=== PATIENT | female | born 1970 | race Caucasian/White ===

== ENCOUNTER 2016-10-10 21:23 | Emergency (ER) | payer OTHER ==
[2016-10-10 21:31] VITALS: RESP 18
[2016-10-10] MEDS ORDERED: methylPREDNISolone SOD SUCCI 125 MG/2 ML VIAL IV STA (21:42)
[2016-10-10] MEDS ORDERED: FAMOTIDINE 20 MG/2 ML VIAL IV STA (21:42)
[2016-10-10] MEDS ORDERED: SODIUM CHLORIDE 0.9% 1,000 ML IV STA (21:42)
[2016-10-10] MEDS ORDERED: diphenhydrAMINE 50 MG/ML 1 ML VIAL IVP STA (21:42)
[2016-10-10] MEDS ORDERED: KETOROLAC 30 MG/ML 1 ML VIAL IVP STA (21:43)
--- NOTE | 2016-10-10 21:48 | ED ---
General Adult HPI - General Chief complaint: Allergic Reaction Stated complaint: allergic reaction/multiple bee stings Time Seen by Provider: 10/10/16 21:38 Source: patient, RN notes reviewed Mode of arrival: ambulatory Limitations: no limitations - History of Present Illness Initial comments: 46-year-old female presents emergency Department chief complaint of ALLERGIC reaction. Patient states that she was stung by multiple bees about 20 minutes ago. Patient states that she has had an ALLERGY to bees in the past that she was concerned. Patient states that the bites or just swollen and tender. Patient states in the way here she felt some shortness of breath but she is feeling much better now. Patient was concerned due to the number of insect bite so she thought that she should be seen. He states that they are throbbing in pain.Patient denies any recent fever, chills, shortness of breath, chest pain , back pain, abdominal pain, nausea vomiting, numbness or tingling, dysuria or hematuria, constipation or diarrhea, headaches or visual changes, or any other current symptoms. - Related Data Home Medications Medication Instructions Recorded Confirmed ALPRAZolam [Xanax] 0.25 mg PO DAILY PRN 09/17/13 10/02/14 Citalopram Hydrobromide [CeleXA] 40 mg PO DAILY 09/17/13 10/02/14 Levothyroxine Sodium [Synthroid] 75 mcg PO DAILY 09/17/13 10/02/14 Phentermine HCl 37.5 mg PO DAILY 10/02/14 10/02/14 Previous Rx's Medication Instructions Recorded Hydrocodone/Acetaminophen [[place] 1 each PO Q4HR PRN #20 tab 09/17/13 5-325] EPINEPHrine (Auto Inject) [Epipen] 0.3 mg IM ONCE PRN #1 syringe 10/10/16 predniSONE 50 mg PO DAILY #5 tab 10/10/16 Allergies Allergy/AdvReac Type Severity Reaction Status Date / Time prochlorperazine edisylate Allergy Rash/Hives Verified 10/10/16 21:31 [From Compazine] prochlorperazine maleate Allergy Rash/Hives Verified 10/10/16 21:31 [From Compazine] promethazine HCl AdvReac Confusion Verified 10/10/16 21:31 [From Phenergan] Review of Systems ROS Statement: Those systems with pertinent positive or pertinent negative responses have been documented in the HPI. ROS Other: All systems not noted in ROS Statement are negative. Past Medical History Past Medical History: Pneumonia, Thyroid Disorder Additional Past Medical History / Comment(s): "small brain bleed" History of Any Multi-Drug Resistant Organisms: None Reported Past Surgical History: Hysterectomy, Orthopedic Surgery Additional Past Surgical History / Comment(s): breast reduction Past Psychological History: Anxiety, Depression Smoking Status: Never smoker Past Alcohol Use History: Occasional Past Drug Use History: None Reported General Exam Limitations: no limitations General appearance: alert, in no apparent distress Eye exam: Present: normal appearance, PERRL, EOMI. Absent: scleral icterus, conjunctival injection, periorbital swelling ENT exam: Present: normal exam, mucous membranes moist Neck exam: Present: normal inspection. Absent: tenderness, meningismus, lymphadenopathy Respiratory exam: Present: normal lung sounds bilaterally. Absent: respiratory distress, wheezes, rales, rhonchi, stridor Cardiovascular Exam: Present: regular rate, normal rhythm, normal heart sounds. Absent: systolic murmur, diastolic murmur, rubs, gallop, clicks Neurological exam: Present: alert, oriented X3 Psychiatric exam: Present: normal affect, normal mood Skin exam: Present: warm, dry, intact, other Course Vital Signs 10/10/16 21:28 Temperature 97.8 F Pulse Rate 87 Respiratory 18 Rate Blood Pressure 151/90 O2 Sat by Pulse 98 Oximetry Medical Decision Making - Medical Decision Making 46-year-old male presents for ALLERGIC reaction. This time we do much patient one hour she developed no anaphylaxis like symptoms. We did start her on steroids we discussed continuing Benadryl at home. We discussed return parameters and all her questions. She stated that she understood and she is here with this plan. This time she will be discharged home. Disposition Clinical Impression: Allergic reaction to insect sting Disposition: HOME SELF-CARE Condition: Stable Instructions: Anaphylaxis (ED) Additional Instructions: Please use medication as discussed. Please follow up with family doctor if symptoms have not improved over the next two days. Please return to the emergency room if your symptoms increase or worsen or for any other concerns. Prescriptions: EPINEPHrine (Auto Inject) [Epipen] 0.3 mg IM ONCE PRN #1 syringe PRN Reason: Anaphylaxis predniSONE 50 mg PO DAILY #5 tab Referrals: Dominga Deal MD [Primary Care Provider] - 1-2 days Time of Disposition: 22:32
[2016-10-10 23:27] VITALS: BP 108/52; PULSE 68; TEMP 97.6
== END 2016-10-10 23:27 | disposition home or self-care (01) ==
LOC: EC 21:23
DX: T63.441A Toxic effect of venom of bees, accidental (unintentional), initial encounter (principal); R06.02 Shortness of breath; E07.9 Disorder of thyroid, unspecified; F32.9 Major depressive disorder, single episode, unspecified; F41.9 Anxiety disorder, unspecified; Z79.899 Other long term (current) drug therapy; Z88.8 Allergy status to other drugs, medicaments and biological substances
CPT/HCPCS: 99283; 96374; 96375 ×3; 96361; J1200; J2930; J1885

== ENCOUNTER 2016-11-05 07:46 | Emergency (ER) | payer OTHER ==
[2016-11-05] MEDS ORDERED: SODIUM CHLORIDE 0.9% 1,000 ML IV STA (08:07)
[2016-11-05] MEDS ORDERED: RX INFO: IV CONTRAST WAS GIVEN 1 EACH MISC MISCELLANE PRN (08:20)
[2016-11-05] MEDS ORDERED: ONDANSETRON 4 MG/2 ML VIAL IVP STA (08:20)
[2016-11-05] MEDS ORDERED: MORPHINE SULFATE 2 MG/ML SYRINGE IVP ONE (08:20)
[2016-11-05 08:51] LABS: Basophils # (A) 0.1 k/uL (0-0.2); Basophils % (A) 1 %; CH 31.7; CHCM 35.4; Eosinophils # (A) 0.2 k/uL (0-0.7); Eosinophils % (A) 2 %; HCT 43.3 % (34.0-46.0); HDW 2.49; HGB 14.8 gm/dL (11.4-16.0); Luc # (Auto) 0.21; Luc % (Auto) 2; Lymphocytes # (A) 2.1 k/uL (1.0-4.8); Lymphocytes % (A) 22 %; MCH 30.6 pg (25.0-35.0); MCHC 34.1 g/dL (31.0-37.0); MCV 89.9 fL (80.0-100.0); Mean Platelet Volume 7.6; Monocytes # (A) 0.5 k/uL (0-1.0); Monocytes % (A) 5 %; Neutrophils # (A) 6.7 k/uL (1.3-7.7); Neutrophils % (A) 69 %; RBC 4.82 m/uL (3.80-5.40); RDW 13.7 % (11.5-15.5); WBC 9.7 k/uL (3.8-10.6); WBC (Perox) 9.17
[2016-11-05 08:57] LABS: Appearance,Urine Cloudy (Clear); Bacteria,Urine Few /hpf; Bilirubin,Urine Negative (Negative); Glucose,Urine (UA) 1+ (Negative); Ketones,Urine Negative (Negative); Leukocyte Esterase,Urine Large (Negative); Mucus,Urine Many /hpf; Nitrite,Urine Negative (Negative); PH, Urine 5.5 (5.0-8.0); Particle Count 33157; Protein,Urine Trace (Negative); Specific Gravity,Urine 1.018 (1.001-1.035); Squamous Epithelial Cell,Urine 24 /hpf (0-4); UA Billing (MACRO vs. MICRO) MICRO; Urobilinogen,Urine <2.0 mg/dL (<2.0); WBC,Urine 7 /hpf (0-5)
--- NOTE | 2016-11-05 08:57 | ED ---
Abdominal Pain HPI - General Chief Complaint: Abdominal Pain Stated Complaint: abd pain Time Seen by Provider: 11/05/16 08:06 Source: patient, RN notes reviewed Mode of arrival: ambulatory Limitations: no limitations - History of Present Illness Initial Comments: This a 46-year-old female presents emergency Department chief complaint of abdominal pain. Patient states that she has had abdominal pain started 1 week ago but worsening symptoms over the last 3 days. She's developed nausea, vomiting and diarrhea. She denies any pressure chills. She states that she's had a prior partial hysterectomy and cholecystectomy. Patient states that she' s never had a colonoscopy no history of colitis or diverticulitis. Patient states that she still feels nauseated. She denies any chest pain, shortness breath, headache. Patient does note some urinary frequency with no dysuria. Patient has chronic back pain. - Related Data Home Medications Medication Instructions Recorded Confirmed ALPRAZolam [Xanax] 0.25 mg PO DAILY PRN 09/17/13 11/05/16 Levothyroxine Sodium [Synthroid] 75 mcg PO DAILY 09/17/13 11/05/16 Citalopram Hydrobromide [CeleXA] 20 mg PO HS 11/05/16 11/05/16 Hydrocodone/Acetaminophen [[place] 1 tab PO Q6HR PRN 11/05/16 11/05/16 7.5-325] metFORMIN HCL ER [Glucophage Xr] 500 mg PO HS 11/05/16 11/05/16 Previous Rx's Medication Instructions Recorded EPINEPHrine (Auto Inject) [Epipen] 0.3 mg IM ONCE PRN #1 syringe 10/10/16 Dicyclomine [Bentyl] 20 mg PO TID #30 tablet 11/05/16 Ondansetron Odt [Zofran Odt] 4 mg PO Q8HR PRN #10 tab 11/05/16 Allergies Allergy/AdvReac Type Severity Reaction Status Date / Time prochlorperazine edisylate Allergy Rash/Hives Verified 11/05/16 08:56 [From Compazine] prochlorperazine maleate Allergy Rash/Hives Verified 11/05/16 08:56 [From Compazine] promethazine HCl AdvReac Confusion Verified 11/05/16 08:56 [From Phenergan] Review of Systems ROS Statement: Those systems with pertinent positive or pertinent negative responses have been documented in the HPI. ROS Other: All systems not noted in ROS Statement are negative. Past Medical History Past Medical History: Pneumonia, Thyroid Disorder Additional Past Medical History / Comment(s): "small brain bleed" History of Any Multi-Drug Resistant Organisms: None Reported Past Surgical History: Hysterectomy, Orthopedic Surgery Additional Past Surgical History / Comment(s): breast reduction Past Psychological History: Anxiety, Depression Smoking Status: Never smoker Past Alcohol Use History: Occasional Past Drug Use History: None Reported General Exam Limitations: no limitations General appearance: alert, in no apparent distress Respiratory exam: Present: normal lung sounds bilaterally. Absent: respiratory distress, wheezes, rales, rhonchi, stridor Cardiovascular Exam: Present: regular rate, normal rhythm, normal heart sounds. Absent: systolic murmur, diastolic murmur, rubs, gallop, clicks GI/Abdominal exam: Present: soft, tenderness (Mild diffuse odontitis with moderate left lower quadrant tenderness), normal bowel sounds. Absent: distended, guarding, rebound, rigid Back exam: Absent: CVA tenderness (R), CVA tenderness (L) Neurological exam: Present: alert, oriented X3, CN II-XII intact Skin exam: Present: warm, dry, intact, normal color. Absent: rash Course Vital Signs 11/05/16 11/05/16 07:47 09:36 Temperature 98.7 F Pulse Rate 83 70 Respiratory 18 19 Rate Blood Pressure 110/70 95/54 O2 Sat by Pulse 97 96 Oximetry Medical Decision Making - Medical Decision Making 46-year-old female presents emergency department for abdominal pain. Patient's labwork showed acute abnormality. Patient's pain has been over the last few days worsen with nausea vomiting diarrhea. This most likely is related to enteritis. Patient be discharged Zofran and Bentyl return parameters were discussed. - Lab Data Result diagrams: 11/05/16 08:37 11/05/16 08:37 Lab Results 11/05/16 11/05/16 11/05/16 Range/Units 08:25 08:37 08:37 WBC 9.7 (3.8-10.6) k/uL RBC 4.82 (3.80-5.40) m/uL Hgb 14.8 (11.4-16.0) gm/dL Hct 43.3 (34.0-46.0) % MCV 89.9 (80.0-100.0) fL MCH 30.6 (25.0-35.0) pg MCHC 34.1 (31.0-37.0) g/dL RDW 13.7 (11.5-15.5) % Plt Count 282 (150-450) k/uL Neutrophils % 69 % Lymphocytes % 22 % Monocytes % 5 % Eosinophils % 2 % Basophils % 1 % Neutrophils # 6.7 (1.3-7.7) k/uL Lymphocytes # 2.1 (1.0-4.8) k/uL Monocytes # 0.5 (0-1.0) k/uL Eosinophils # 0.2 (0-0.7) k/uL Basophils # 0.1 (0-0.2) k/uL Sodium 139 (137-145) mmol/L Potassium 4.3 (3.5-5.1) mmol/L Chloride 103 (98-107) mmol/L Carbon Dioxide 26 (22-30) mmol/L Anion Gap 10 mmol/L BUN 6 L (7-17) mg/dL Creatinine 0.60 (0.52-1.04) mg/dL Est GFR (MDRD) Af Amer >60 (>60 ml/min/1.73 sqM) Est GFR (MDRD) Non-Af >60 (>60 ml/min/1.73 sqM) Glucose 178 H (74-99) mg/dL Calcium 9.1 (8.4-10.2) mg/dL Total Bilirubin 0.8 (0.2-1.3) mg/dL AST 40 H (14-36) U/L ALT 64 H (9-52) U/L Alkaline Phosphatase 78 (38-126) U/L Total Protein 7.3 (6.3-8.2) g/dL Albumin 4.0 (3.5-5.0) g/dL Amylase 36 (30-110) U/L Lipase 58 (23-300) U/L Urine Color Yellow Urine Appearance Cloudy H (Clear) Urine pH 5.5 (5.0-8.0) Ur Specific [place] 1.018 (1.001-1.035) Urine Protein Trace H (Negative) Urine Glucose (UA) 1+ H (Negative) Urine Ketones Negative (Negative) Urine Blood Negative (Negative) Urine Nitrite Negative (Negative) Urine Bilirubin Negative (Negative) Urine Urobilinogen <2.0 (<2.0) mg/dL Ur Leukocyte Esterase Large H (Negative) Urine WBC 7 H (0-5) /hpf Ur Squamous Epith Cells 24 H (0-4) /hpf Urine Bacteria Few H (None) /hpf Urine Mucus Many H (None) /hpf Disposition Clinical Impression: Abdominal pain, Gastroenteritis Disposition: HOME SELF-CARE Condition: Stable Instructions: Abdominal Pain (ED) Additional Instructions: Please return to the Emergency Department if symptoms worsen or any other concerns. Prescriptions: Dicyclomine [Bentyl] 20 mg PO TID #30 tablet Ondansetron Odt [Zofran Odt] 4 mg PO Q8HR PRN #10 tab PRN Reason: Nausea Referrals: Dominga Deal MD [Primary Care Provider] - 1-2 days Time of Disposition: 10:46
[2016-11-05 09:00] LABS: ALT 64 U/L (9-52); AST 40 U/L (14-36); Alkaline Phosphatase 78 U/L (38-126); Amylase 36 U/L (30-110); Anion Gap 10 mmol/L; Blood Urea Nitrogen 6 mg/dL (7-17); Calcium 9.1 mg/dL (8.4-10.2); Carbon Dioxide 26 mmol/L (22-30); Chloride 103 mmol/L (98-107); Glucose 178 mg/dL (74-99); Non-African American GFR(MDRD) >60 (>60 ml/min/1.73 sqM); Potassium 4.3 mmol/L (3.5-5.1); Sodium 139 mmol/L (137-145); Total Bilirubin 0.8 mg/dL (0.2-1.3); Total Protein 7.3 g/dL (6.3-8.2)
--- NOTE | 2016-11-05 10:39 | CT ---
EXAMINATION TYPE: CT abdomen pelvis w con DATE OF EXAM: 11/05/2016 COMPARISON: 01/07/2011 INDICATION: Left sided abdominal pain with nausea and vomiting DLP: 3075.6 mGycm, Automated exposure control for dose reduction was used. CONTRAST: 100 mL of Omnipaque 300. Study performed without Oral Contrast TECHNIQUE: Axial images were obtained from above the diaphragm to the pubic rami in the axial plane a t 5 mm thick sections. Reconstructed images are reviewed on the computer in the coronal plane. FINDINGS: Limited CT sections are obtained the lung bases. Some minimal infiltrate is within the lingula near the lung base. Consider some minimal atelectasis or pneumonitis.. CT ABDOMEN: Liver: There is moderate fatty infiltration to the liver. No discrete masses or cysts are evident. Spleen: Normal Pancreas: Normal Adrenal glands: The adrenal glands are normal. Gallbladder: Surgically absent Kidneys: No masses are evident. No hydronephrosis is present. There is a 0.8 cm cyst in the anterio r right kidney. Cortical renal cyst measuring 1.0 cm in the anterior lateral inferior pole right kidn ey. Couple of additional punctate cortical renal cysts are present on delayed images. Aorta: Normal Inferior vena cava: Normal. CT PELVIS: Loops of bowel within the abdomen and pelvis are normal. Study is without oral contrast. Appendix: Normal as visualized. Urinary bladder: Decompressed with limited evaluation. Genitourinary structures: Uterus is normal. Adnexal regions are clear. Osseous structures: No suspicious lytic or sclerotic lesions. Facet degenerative changes are present. No acute posttraumatic changes are evident. No organ laceration, osseous fractures, or fluid within t he abdomen or pelvis is evident. IMPRESSIONS: 1. No acute posttraumatic changes. 2. Tiny cortical renal cysts right kidney. 3. Moderate fatty infiltration of the liver
[2016-11-05 10:58] VITALS: BP 97/55; PULSE 68; RESP 18; TEMP 97.7
== END 2016-11-05 11:03 | disposition home or self-care (01) ==
LOC: EC 07:46
DX: K52.9 Noninfective gastroenteritis and colitis, unspecified (principal); E07.9 Disorder of thyroid, unspecified; F32.9 Major depressive disorder, single episode, unspecified; F41.9 Anxiety disorder, unspecified; Z79.84 Long term (current) use of oral hypoglycemic drugs; Z79.899 Other long term (current) drug therapy; Z88.8 Allergy status to other drugs, medicaments and biological substances; Z90.49 Acquired absence of other specified parts of digestive tract; Z90.710 Acquired absence of both cervix and uterus
CPT/HCPCS: 36415; 80053; 82150; 83690; 85025; 81001; 74177; 99284; 96374; 96375; 96361 ×2; J2405; J2270; Q9967

== ENCOUNTER → 2016-11-29 | Outpatient (CLI) | payer OTHER ==
--- NOTE | 2016-12-02 11:58 | MM ---
Reason for exam: screening (asymptomatic). Last mammogram was performed 6 years and 9 months ago. History: Patient has history of high-risk lesion on a previous biopsy at age 25. Family history of breast cancer in maternal grandmother. Reductions of both breasts, 2006. Physical Findings: A clinical breast exam by your physician is recommended on an annual basis and results should be correlated with mammographic findings. MG Screening Mammo w CAD Bilateral CC and MLO view(s) were taken. XCCL view(s) were taken of the left breast. Prior study comparison: March 15, 2010, bilateral diagnostic digital mammog. There are scattered fibroglandular densities. There is no discrete abnormality. No significant changes when compared with prior studies. ASSESSMENT: Negative, BI-RAD 1 RECOMMENDATION: Routine screening mammogram of both breasts in 1 year.
== END | disposition home or self-care (01) ==
LOC: RADMAMWWP 08:15
PROVIDERS: ATTEND Family Medicine
DX: Z12.31 Encounter for screening mammogram for malignant neoplasm of breast (principal)

== ENCOUNTER 2017-01-11 09:36 | Emergency (ER) | payer BC, OTHER ==
[2017-01-11 09:41] VITALS: RESP 18
[2017-01-11] MEDS ORDERED: SODIUM CHLORIDE 0.9% 1,000 ML IV STA (09:55)
[2017-01-11] MEDS ORDERED: KETOROLAC 30 MG/ML 1 ML VIAL IVP STA (09:55)
[2017-01-11] MEDS ORDERED: ASPIRIN 81 MG PO STA (09:55)
--- NOTE | 2017-01-11 09:58 | ED ---
Chest Pain HPI - General Chief Complaint: Chest Pain Stated Complaint: chest heavyness, weakness Time Seen by Provider: 01/11/17 09:48 Source: patient, RN notes reviewed Mode of arrival: wheelchair Limitations: no limitations - History of Present Illness Initial Comments: This is a 46-year-old female with a benign past medical history states she's had intermittent episodes of anterior chest pain with some pain going to her low back over last week she states it became fairly constant last evening feels a heaviness also some was sitting on her chest. She states is 8/10 severity. She has a slight cough with some phlegm which she does not know color she's had no fevers chills or sweats. She states when the pain started actually she was placed on Z-Arnol though she did not believe she had any cough or respiratory problem at the time. She is a nonsmoker she does not recall lifting or bending or twisting may be injured her torso. MD Complaint: chest pain - Related Data Home Medications Medication Instructions Recorded Confirmed ALPRAZolam [Xanax] 0.25 mg PO DAILY PRN 09/17/13 01/11/17 Levothyroxine Sodium [Synthroid] 75 mcg PO DAILY 09/17/13 01/11/17 Citalopram Hydrobromide [CeleXA] 20 mg PO HS 11/05/16 01/11/17 Hydrocodone/Acetaminophen [[place] 1 tab PO Q6HR PRN 11/05/16 01/11/17 7.5-325] Aspirin [Adult Low Dose Aspirin EC] 81 mg PO DAILY PRN 01/11/17 01/11/17 Cyclobenzaprine [Flexeril] 5 mg PO DAILY PRN 01/11/17 01/11/17 Glimepiride [Amaryl] 1 mg PO DAILY 01/11/17 01/11/17 Pseudoephedrine 12Hr [Sudafed 12Hr] 120 mg PO Q12H PRN 01/11/17 01/11/17 Previous Rx's Medication Instructions Recorded EPINEPHrine (Auto Inject) [Epipen] 0.3 mg IM ONCE PRN #1 syringe 10/10/16 Ibuprofen 800 mg PO Q6HR PRN #20 tablet 01/11/17 Allergies Allergy/AdvReac Type Severity Reaction Status Date / Time prochlorperazine edisylate Allergy Rash/Hives Verified 01/11/17 10:50 [From Compazine] prochlorperazine maleate Allergy Rash/Hives Verified 01/11/17 10:50 [From Compazine] promethazine HCl AdvReac Confusion Verified 01/11/17 10:50 [From Phenergan] Review of Systems ROS Statement: Those systems with pertinent positive or pertinent negative responses have been documented in the HPI. ROS Other: All systems not noted in ROS Statement are negative. EKG Findings - EKG Results: EKG: interpreted by BRISEYDA, sinus rhythm (Sinus rhythm rate is 70. Interval 154 QRS duration 92 QT/QTC 394/425 evidence of a left anterior fascicular block this is compared with EKG dated 10/02/49 which shows no change in morphology.) Past Medical History Past Medical History: Pneumonia, Thyroid Disorder Additional Past Medical History / Comment(s): "small brain bleed" History of Any Multi-Drug Resistant Organisms: None Reported Past Surgical History: Hysterectomy, Orthopedic Surgery Additional Past Surgical History / Comment(s): breast reduction Past Psychological History: Anxiety, Depression Smoking Status: Never smoker Past Alcohol Use History: Occasional Past Drug Use History: None Reported General Exam - General Exam Comments Initial Comments: This is a well-developed well-nourished awake alert oriented 3 female Limitations: no limitations General appearance: alert, anxious Head exam: Present: atraumatic, normocephalic, normal inspection Eye exam: Present: normal appearance, PERRL, EOMI. Absent: scleral icterus, conjunctival injection, periorbital swelling ENT exam: Present: normal exam, mucous membranes moist Neck exam: Present: normal inspection. Absent: tenderness, meningismus, lymphadenopathy Respiratory exam: Present: chest wall tenderness, decreased breath sounds ( Reproducible tenderness palpation of the anterior chest with costochondral costal sternal margins). Absent: respiratory distress, wheezes, rales, rhonchi , stridor Cardiovascular Exam: Present: regular rate, normal rhythm, normal heart sounds. Absent: systolic murmur, diastolic murmur, rubs, gallop, clicks GI/Abdominal exam: Present: soft, normal bowel sounds. Absent: distended, tenderness, guarding, rebound, rigid, bruit, pulsatile mass, hernia Extremities exam: Present: normal inspection, full ROM, normal capillary refill. Absent: tenderness, pedal edema, joint swelling, calf tenderness Back exam: Present: normal inspection, full ROM, tenderness (Tenderness palpation along the left paraspinous muscles in the midthoracic region no step- off or crepitation no spinal process tenderness). Absent: CVA tenderness (R), CVA tenderness (L), vertebral tenderness, rash noted Neurological exam: Present: alert, oriented X3, CN II-XII intact Psychiatric exam: Present: normal affect, normal mood Skin exam: Present: warm, dry, intact, normal color. Absent: rash Course Vital Signs 01/11/17 01/11/17 01/11/17 09:39 09:58 10:41 Temperature 98.6 F Pulse Rate 79 89 Pulse Rate [ 85 Drafter (Cad) Electrical ] Respiratory 18 18 Rate Blood Pressure 151/70 116/68 O2 Sat by Pulse 96 98 Oximetry Chest Pain MDM - MDM I did review the imaging and reports no acute findings. Patient is feeling much improved at this time we a long discussion regarding the findings the presentation is consistent with musculoskeletal chest wall pain. Patient be placed on anti-inflammatories. Disposition Clinical Impression: Costalchondritis, Chest wall syndrome Disposition: HOME SELF-CARE Condition: Good Instructions: Costochondritis (ED) Prescriptions: Ibuprofen 800 mg PO Q6HR PRN #20 tablet PRN Reason: Pain Referrals: Dominga Deal MD [Primary Care Provider] - 1-2 days
[2017-01-11 10:05] LABS: Basophils % (A) 0 %; CHCM 33.1; Eosinophils # (A) 0.2 k/uL (0-0.7); Eosinophils % (A) 3 %; HCT 43.3 % (34.0-46.0); HDW 2.35; HGB 14.1 gm/dL (11.4-16.0); Luc # (Auto) 0.12; Luc % (Auto) 2; Lymphocytes # (A) 1.7 k/uL (1.0-4.8); Lymphocytes % (A) 28 %; MCH 29.5 pg (25.0-35.0); MCHC 32.4 g/dL (31.0-37.0); Mean Platelet Volume 7.5; Monocytes # (A) 0.3 k/uL (0-1.0); Monocytes % (A) 4 %; Neutrophils # (A) 3.7 k/uL (1.3-7.7); Neutrophils % (A) 63 %; RBC 4.76 m/uL (3.80-5.40); RDW 13.5 % (11.5-15.5); WBC 5.9 k/uL (3.8-10.6); WBC (Perox) 5.95
[2017-01-11 10:16] LABS: ALT 60 U/L (9-52); AST 41 U/L (14-36); Alkaline Phosphatase 85 U/L (38-126); Amylase 36 U/L (30-110); Anion Gap 6 mmol/L; Blood Urea Nitrogen 9 mg/dL (7-17); Calcium 8.8 mg/dL (8.4-10.2); Carbon Dioxide 26 mmol/L (22-30); Chloride 106 mmol/L (98-107); Glucose 182 mg/dL (74-99); Magnesium 1.8 mg/dL (1.6-2.3); Non-African American GFR(MDRD) >60 (>60 ml/min/1.73 sqM); Potassium 4.2 mmol/L (3.5-5.1); Sodium 138 mmol/L (137-145); Total Bilirubin 0.6 mg/dL (0.2-1.3); Total Protein 6.9 g/dL (6.3-8.2)
[2017-01-11 10:17] LABS: Partial Thromboplastin Time 26.6 sec (22.0-30.0); Prothrombin Time 10.4 sec (9.0-12.0)
[2017-01-11 10:38] LABS: Creatine Kinase 51 U/L (30-135)
--- NOTE | 2017-01-11 10:38 | XR ---
EXAMINATION TYPE: XR chest 2V DATE OF EXAM: 01/11/2017 HISTORY: Chest Pain. REFERENCE: Previous study dated 05/08/2014. FINDINGS: The lungs are clear. Pleural space are clear. The heart is not enlarged. IMPRESSION: NO ACUTE INTRATHORACIC ABNORMALITY.
[2017-01-11 10:51] LABS: Creatine Kinase MB 1.1 ng/mL (0.0-2.4); Troponin I <0.012 ng/mL (0.000-0.034)
[2017-01-11 12:03] VITALS: BP 116/75; PULSE 76; TEMP 97
== END 2017-01-11 11:45 | disposition home or self-care (01) ==
LOC: EC 09:36
DX: M94.0 Chondrocostal junction syndrome [Tietze] (principal); E07.9 Disorder of thyroid, unspecified; F41.9 Anxiety disorder, unspecified; F32.9 Major depressive disorder, single episode, unspecified; Z88.8 Allergy status to other drugs, medicaments and biological substances; Z79.84 Long term (current) use of oral hypoglycemic drugs; Z79.899 Other long term (current) drug therapy
CPT/HCPCS: 99285; 96374; 96361 ×2; 36415; 93005; 85379; 83880; 80053; 82150; 82550; 82553; 83690; 83735; 84484; 85025; 85610; 85730; 71020; J1885

== ENCOUNTER → 2017-04-22 | Outpatient (CLI) | payer BC ==
--- NOTE | 2017-04-22 16:17 | US ---
EXAMINATION TYPE: US transvaginal DATE OF EXAM: 04/22/2017 COMPARISON: NONE CLINICAL HISTORY: 47-year-old female Lower Abdominal Pain Rt Side R10.30. Right pelvic pain x 1 year, getting worse. Partial hysterectomy TECHNIQUE: Transvaginal (TV). Date of LMP: unknown FINDINGS: ACCOUNTING SYSTEMS MANAGER NOTES: Technical limitations due to large amount of overlying bowel content Uterus: Surgically absent Right Ovary: 3.5 x 1.8 x 1.8 cm with follicular changes. Left Ovary: 3.2 x 2.3 x 2.5 cm with suggestion of a round 1.4 cm hypoechoic area within. No evident adnexal abnormality or cul-de-sac free fluid. IMPRESSION: 1. Status post hysterectomy. 2. Possible round 1.4 cm hypoechoic lesion in the left ovary. This could represent a hemorrhagic malgorzata us luteum or other hemorrhagic follicle/cyst. A 6-8 week follow-up ultrasound is recommended to reass ess. 3. No pelvic free fluid.
== END | disposition home or self-care (01) ==
LOC: RADUSWWP 15:13
PROVIDERS: ATTEND Family Medicine
DX: R10.30 Lower abdominal pain, unspecified (principal); Z90.710 Acquired absence of both cervix and uterus
CPT/HCPCS: 76830

== ENCOUNTER 2017-04-27 23:02 | Observation (INO) | payer BC ==
[2017-04-27] MEDS ORDERED: ASPIRIN 81 MG PO STA (23:25)
[2017-04-27] MEDS ORDERED: ONDANSETRON 4 MG/2 ML VIAL IVP STA (23:25)
[2017-04-27] MEDS ORDERED: MORPHINE SULFATE 4 MG/ML SYRINGE IV STA (23:25)
[2017-04-27] MEDS ORDERED: NITROGLYCERIN OINT 1 INCH/GM PACKET TOPICAL STA (23:25)
[2017-04-27] MEDS ORDERED: SODIUM CHLORIDE 0.9% 1,000 ML IV STA (23:25)
[2017-04-27 23:40] LABS: Basophils % (A) 0 %; Eosinophils # (A) 0.2 k/uL (0-0.7); Eosinophils % (A) 2 %; HCT 45.2 % (34.0-46.0); HGB 14.5 gm/dL (11.4-16.0); Lymphocytes # (A) 2.9 k/uL (1.0-4.8); Lymphocytes % (A) 34 %; MCH 29.2 pg (25.0-35.0); MCHC 32.1 g/dL (31.0-37.0); Monocytes # (A) 0.5 k/uL (0-1.0); Monocytes % (A) 6 %; Neutrophils # (A) 4.7 k/uL (1.3-7.7); Neutrophils % (A) 55 %; Platelet Count 316 k/uL (150-450); RBC 4.96 m/uL (3.80-5.40); RDW 12.2 % (11.5-15.5); WBC 8.5 k/uL (3.8-10.6)
[2017-04-27 23:44] LABS: Partial Thromboplastin Time 25.4 sec (22.0-30.0)
[2017-04-27 23:46] LABS: INR 1.1 (<1.2); Prothrombin Time 10.3 sec (9.0-12.0)
[2017-04-27 23:47] LABS: ALT 57 U/L (9-52); AST 53 U/L (14-36); Albumin 4.3 g/dL (3.5-5.0); Alkaline Phosphatase 88 U/L (38-126); Anion Gap 12 mmol/L; Blood Urea Nitrogen 13 mg/dL (7-17); Calcium 9.5 mg/dL (8.4-10.2); Carbon Dioxide 24 mmol/L (22-30); Chloride 101 mmol/L (98-107); Glucose 105 mg/dL (74-99); Potassium 4.3 mmol/L (3.5-5.1); Sodium 137 mmol/L (137-145); Total Bilirubin 0.8 mg/dL (0.2-1.3)
[2017-04-27 23:57] LABS: Creatine Kinase 72 U/L (30-135)
[2017-04-28 00:10] LABS: Creatine Kinase MB 1.1 ng/mL (0.0-2.4); Troponin I <0.012 ng/mL (0.000-0.034)
--- NOTE | 2017-04-28 00:13 | ED ---
Chest Pain HPI - General Chief Complaint: Chest Pain Stated Complaint: Chest Pain Time Seen by Provider: 04/27/17 23:14 Source: patient Mode of arrival: wheelchair Limitations: no limitations - History of Present Illness Initial Comments: 47 years old female has a history of diabetes centered with the chest pain it started around 2 PM and pain radiated to the left arm she denies any shortness of breath she got nauseous and she had a cold sweats chest pain is still there it's not as bad at as it was is 5/10 now she denies any shortness of breath there is no pleuritic chest pain she is now coughing up any phlegm she is not noticed smoker she does have a family history of heart disease her dad at the age of 54 mom has no coronary artery disease and she also has a history of thyroid disease. She denies any abdominal pain no frequency urgency dysuria no symptoms of TIA or CVA - Related Data Home Medications Medication Instructions Recorded Confirmed Levothyroxine Sodium [Synthroid] 75 mcg PO DAILY 09/17/13 04/27/17 Citalopram Hydrobromide [CeleXA] 20 mg PO DAILY 11/05/16 04/27/17 Hydrocodone/Acetaminophen [[place] 1 tab PO Q6HR PRN 11/05/16 04/27/17 7.5-325] Glimepiride [Amaryl] 2 mg PO AC-BRKFST 04/27/17 04/27/17 Omeprazole 20 mg PO DAILY PRN 04/27/17 04/27/17 Triamterene-Hctz 37.5-25Mg 1 cap PO DAILY 04/27/17 04/27/17 [Dyazide 37.5-25 Capsule] Allergies Allergy/AdvReac Type Severity Reaction Status Date / Time prochlorperazine edisylate Allergy Rash/Hives Verified 04/27/17 23:34 [From Compazine] prochlorperazine maleate Allergy Rash/Hives Verified 04/27/17 23:34 [From Compazine] promethazine HCl AdvReac Confusion Verified 04/27/17 23:34 [From Phenergan] Review of Systems ROS Statement: Those systems with pertinent positive or pertinent negative responses have been documented in the HPI. ROS Other: All systems not noted in ROS Statement are negative. EKG Findings - EKG Comments: EKG Findings:: EKG is normal sinus rhythm ventricular rate is 89 MO interval is 150 QRS duration is 88 QT/QTc is 378/459 review of this EKG revealed T-wave inversion in lead [address] or ST depression noticed in the other leads Past Medical History Past Medical History: Pneumonia, Thyroid Disorder Additional Past Medical History / Comment(s): "small brain bleed" 2009, dizziness. History of Any Multi-Drug Resistant Organisms: None Reported Past Surgical History: Hysterectomy, Orthopedic Surgery Additional Past Surgical History / Comment(s): breast reduction Past Psychological History: Anxiety, Depression Smoking Status: Never smoker Past Alcohol Use History: Occasional Past Drug Use History: None Reported General Exam - General Exam Comments Initial Comments: General: The patient is awake and alert, in no distress, and does not appear acutely ill. She is bit anxious Skin: Skin is warm and dry and no rashes or lesions are noted. Eye: Pupils are equal, round and reactive to light, extra-ocular movements are intact; there is normal conjunctiva bilaterally. Ears, nose, mouth and throat: There are moist mucous membranes and no oral lesions. Neck: The neck is supple, there is no tenderness or JVD. Cardiovascular: There is a regular rate and rhythm. No murmur, rub or gallop is appreciated. Respiratory: To auscultation bilateral, no wheezing no rhonchi no distress respiratory nguyen noticed Gastrointestinal: Soft, non-distended, non-tender abdomen without masses or organomegaly noted. There is no rebound or guarding present. Bowel sounds are unremarkable. Back: There is no tenderness to palpation in the midline. There is no obvious deformity. Musculoskeletal: Normal ROM, no tenderness, There is no pedal edema. There is no calf tenderness or swelling. No cords were appreciated. Neurological: CN II-XII intact, Cranial nerves III through XII are intact. There are no obvious motor or sensory deficits. Coordination appears grossly intact. Speech is normal. Psychiatric: Cooperative, appropriate mood & affect, normal judgment. Limitations: no limitations Course Vital Signs 04/27/17 23:06 Temperature 97.5 F L Pulse Rate 100 Respiratory 16 Rate Blood Pressure 125/79 O2 Sat by Pulse 97 Oximetry She is reassessed at 1240, she still have a chest pain and now she is complaining about some pain in the right upper quadrant area as well she is status post cholecystectomy. She is 47 she is diabetic her BMI is 40 she has multiple risk factors she be hospitalized overnight for 3 sets of cardiac markers and plan to Consult cardiology Disposition Clinical Impression: Chest pain Disposition: ADMITTED IP TO THIS HOSP Condition: Good Referrals: Dominga Deal MD [Primary Care Provider] - 1-2 days
--- NOTE | 2017-04-28 00:27 | XR ---
EXAMINATION TYPE: XR chest 2V DATE OF EXAM: 04/27/2017 COMPARISON: 01/11/2017 HISTORY: Chest pain TECHNIQUE: Frontal and lateral views of the chest are obtained. FINDINGS: Heart and mediastinum are normal. Lungs are clear. Costophrenic angles are clear. Bony tho rax is intact. There are chest leads. IMPRESSION: Normal chest. No change.
[2017-04-28] MEDS ORDERED: NITROGLYCERIN SL TABS 0.4 MG TAB SUBLINGUAL PRN (00:46)
[2017-04-28] MEDS ORDERED: PANTOPRAZOLE 40 MG TABLET PO PRN (00:52)
[2017-04-28] MEDS: MORPHINE SULFATE 4 MG/ML SYRINGE IV PRN ×2 (01:29→06:24)
[2017-04-28 01:32] LABS: Glucose,Whole Blood 108 mg/dL (75-99)
[2017-04-28 01:56] VITALS: BMI 40.5
[2017-04-28 02:12] LABS: C Reactive Protein 6.6 mg/L (<10.0)
[2017-04-28] MEDS: HYDROcodone/APAP 7.5-325MG 1 EACH TAB PO PRN ×3 (03:36→18:20)
[2017-04-28 06:08] LABS: Creatine Kinase 61 U/L (30-135)
[2017-04-28] MEDS: LEVOTHYROXINE 75 MCG TAB PO SCH (06:15)
[2017-04-28 06:21] LABS: Creatine Kinase MB 0.9 ng/mL (0.0-2.4); Troponin I <0.012 ng/mL (0.000-0.034)
[2017-04-28 06:49] LABS: Glucose,Whole Blood 109 mg/dL (75-99)
--- NOTE | 2017-04-28 10:18 | CONS ---
CONSULTATION ATTENDING DOCTOR: Dr. Dominga Deal. HISTORY OF PRESENT ILLNESS: Mrs. Martinez is 47-year-old female, known history of diabetes mellitus diagnosed a year ago, who presented with symptoms of chest discomfort. For the last week, she has been feeling somewhat more fatigued and short of breath. Came in yesterday with chest discomfort radiating to the left arm and left shoulder as well as across the back. Some of the discomfort was worse with deep breathing. She also came in complaining of abdominal discomfort in the right upper quadrant. The patient is status post cholecystectomy many years ago. She has no prior cardiac history or cardiac workup. She has no history of PND, orthopnea, or peripheral edema. No palpitation. No syncope. Her coronary risk factors are remarkable for diabetes and a family history of premature coronary disease. Her lipid profile is not available. She is hypertensive. MEDICATIONS: Include Dyazide, levothyroxine 0.075 mg daily, glimepiride 1 mg, and Celexa and Synthroid. REVIEW OF SYSTEMS: Respiratory system: She has no recent wheezing or cough. No history of documented obstructive lung disease. GI system: She has the abdominal pain. No nausea, no vomiting. No recent GI bleeding. system: She had some dysuria but no hematuria. Nervous system: No stroke or seizure. PHYSICAL EXAMINATION: She is a 47-year-old female, alert, oriented, in no apparent distress. Blood pressure running in the 90s to one teens. Heart rate in the 70s. HEAD: Normocephalic. Eyes sclerae anicteric. Neck good upstroke. No bruit. No jugular venous distention. Lungs clear to auscultation. HEART: Regular rhythm S1, S2. No S3, no S4. No rub. Chest wall with chest wall tenderness reproducing the pain. ABDOMEN: Soft, obese, positive bowel sounds with right upper quadrant tenderness. EXTREMITIES: No edema. Intact distal pulses. LAB DATA: Lab data revealed troponin less than 0.012. AST of 53, ALT of 57, BUN and creatinine of 13 and 0.7, potassium 4.3, hemoglobin of 14.5. EKG revealed a sinus mechanism with a left axis deviation and nonspecific ST-T wave changes with poor R wave progression. Chest x-ray shows no acute infiltrate. IMPRESSION: 1. Chest discomfort of unclear etiology. Has some musculoskeletal pattern to it. 2. Abdominal discomfort with mild elevation of the ALT and AST in a patient status post cholecystectomy many years ago. 3. History of diabetes. 4. Obesity. RECOMMENDATIONS: I would recommend to him to proceed with stress echocardiogram to further evaluate her findings and guide her treatment and depending on results of testing, further recommendation will be made. Thank you for this consult. We will follow with you. TERRELL / HANNA: [id number] /
[2017-04-28] MEDS ORDERED: RX INFO: IV CONTRAST WAS GIVEN 1 EACH MISC MISCELLANE PRN (10:39)
[2017-04-28 10:45] LABS: Glucose,Whole Blood 102 mg/dL (75-99)
[2017-04-28] MEDS ORDERED: HYDROmorphone 0.5 MG/0.5 ML SYRINGE IVP PRN (10:47)
[2017-04-28] MEDS ORDERED: SODIUM CHLORIDE 0.9% 500 ML IV ONE (10:48)
--- NOTE | 2017-04-28 11:25 | ECHOF ---
Referral Reason:cp MEASUREMENTS -------- HEIGHT: 160.0 cm WEIGHT: 103.4 kg BP: 87/56 RVIDd: 2.5 cm (< 3.3) IVSd: 1.2 cm (0.6 - 1.1) LVIDd: 3.4 cm (3.9 - 5.3) LVPWd: 1.3 cm (0.6 - 1.1) IVSs: 1.5 cm LVIDs: 2.8 cm LVPWs: 1.5 cm LAESV Index (A-L): 13.44 ml/m Ao Diam: 2.9 cm (2.0 - 3.7) AV Cusp: 2.0 cm (1.5 - 2.6) LA Diam: 2.4 cm (2.7 - 3.8) EPSS: 0.6 cm MV E Tom: 0.68 m/s MV DecT: 301 ms MV A Tom: 0.70 m/s MV E/A Ratio: 0.97 RAP: 5.00 mmHg RVSP: 16.10 mmHg MV EF SLOPE: 95.44 mm/s (70 - 150) MV EXCURSION: 1.82 cm (> 18.000) FINDINGS -------- Sinus rhythm. This was a technically difficult study with suboptimal views. The left ventricular size is normal. There is mild concentric left ventricular hypertrophy. Overa ll left ventricular systolic function is normal with, an EF between 55 - 60 %. The right ventricle is normal in size and function. Normal LA size by volume 22+/-6 ml/m2. The right atrium is normal in size. 3ml of Lumason was utilized for enhancement of images. The aortic valve is trileaflet, and appears structurally normal. No aortic stenosis or regurgitation. The mitral valve is normal. There is trace to mild mitral regurgitation. Trace tricuspid regurgitation present. Right ventricular systolic pressure is normal at < 35 mmHg. There is no evidence of pulmonary hypertension. Trace/mild (physiologic) pulmonic regurgitation. The aortic root size is normal. IVC Not well visulized. There is no pericardial effusion. CONCLUSIONS -------- 1. Sinus rhythm. 2. This was a technically difficult study with suboptimal views. 3. The left ventricular size is normal. 4. There is mild concentric left ventricular hypertrophy. 5. Overall left ventricular systolic function is normal with, an EF between 55 - 60 %. 6. Normal LA size by volume 22+/-6 ml/m2. 7. 3ml of Lumason was utilized for enhancement of images. 8. The aortic valve is trileaflet, and appears structurally normal. No aortic stenosis or regurgitati on. 9. The mitral valve is normal. 10. There is trace to mild mitral regurgitation. 11. Trace tricuspid regurgitation present. 12. Right ventricular systolic pressure is normal at < 35 mmHg. 13. Trace/mild (physiologic) pulmonic regurgitation. 14. The aortic root size is normal. 15. IVC Not well visulized. 16. There is no pericardial effusion. PROTOCOL MANAGER: Otf Guillory RDCS
[2017-04-28] MEDS: IOHEXOL 350 MG/ML 25 ML BOTTLE (ORAL USE) PO PRN ×2 (11:41→12:53)
[2017-04-28] MEDS: SODIUM CHLORIDE 0.9% 1,000 ML IV SCH ×2 (11:48→23:26)
[2017-04-28] MEDS: GLIMEPIRIDE 2 MG TAB PO SCH (11:48)
[2017-04-28 12:01] LABS: Glucose,Whole Blood 112 mg/dL (75-99)
--- NOTE | 2017-04-28 12:16 | ECHOS ---
STRESS ECHOCARDIOGRAM DATE OF SERVICE: 04/28/2017 INDICATIONS: Chest pain. MEDICATIONS: BASELINE HEART RATE: 81 BASELINE BLOOD PRESSURE: 100/71 MAXIMUM HEART RATE: 145 MAXIMUM BLOOD PRESSURE: 126/56 85% MPHR: 146 100% MPHR: 172 METS: 7.1 MAXIMUM STAGE REACHED: II TOTAL EXERCISE TIME: 6 minutes CLINICAL INFORMATION: Baseline rhythm is sinus mechanism, rate of 81, left axis deviation, poor R progression. Baseline blood pressure 100/71 mmHg. Patient exercised on Luis Daniel protocol for 6 minutes reaching peak rate of 145 beats per minute, which is equal to 84% maximum predicted heart rate. Peak blood pressure 126/56 mmHg. Test was terminated secondary to fatigue. There was no chest pain. Electrocardiograph monitoring revealed rare PVCs. There was no evidence of diagnostic ischemic ST deviation. Baseline echocardiogram revealed normal wall thickening and motion. At peak exercise, there was normal wall motion augmentation with no hypokinesis or dyskinesis. CONCLUSION: 1. Decreased exercise tolerance with normal electrocardiograph response to exercise. 2. Normal stress echocardiogram with no evidence of stress induced ischemia. MMODL / IJN: [id number] /
[2017-04-28 12:32] LABS: C Reactive Protein 9.9 mg/L (<10.0)
[2017-04-28 12:49] LABS: Creatine Kinase 66 U/L (30-135)
[2017-04-28 13:02] LABS: Creatine Kinase MB 1.3 ng/mL (0.0-2.4); Troponin I <0.012 ng/mL (0.000-0.034)
[2017-04-28] MEDS: PANTOPRAZOLE 40 MG/10 ML VIAL IVP SCH ×2 (13:37→20:13)
[2017-04-28] MEDS: CITALOPRAM HYDROBROMIDE 20 MG TAB PO SCH (13:40)
[2017-04-28] MEDS: TRIAMTERENE-HCTZ 37.5-25MG 1 EACH CAP PO SCH (13:40)
--- NOTE | 2017-04-28 15:22 | CT ---
EXAMINATION TYPE: CT abdomen pelvis wo con DATE OF EXAM: 04/28/2017 COMPARISON: 11/05/2016 INDICATION: Right lower quadrant pain. DLP: 1137 mGycm, Automated exposure control for dose reduction was used. CONTRAST: 0 mL of Omnipaque 350. Study performed with Oral Contrast TECHNIQUE: Axial images were obtained from above the diaphragm to the pubic rami in the axial plane a t 5 mm thick sections. Reconstructed images are reviewed on the computer in the coronal plane. FINDINGS: Limited CT sections are obtained the lung bases. The lung bases are clear. CT ABDOMEN: Liver: Normal Spleen: Normal Pancreas: Normal Adrenal glands: The adrenal glands are normal. Gallbladder: Surgically absent Kidneys: No masses are evident. No hydronephrosis is present. Previous cysts are not readily appare nt. No renal stones are identified. Aorta: Normal Inferior vena cava: Normal. CT PELVIS: Loops of bowel within the abdomen and pelvis are normal. There are loops of bowel which are incom pletely distended or lack oral contrast limiting their evaluation. Appendix: Normal as visualized. No suspicious inflammatory changes right lower quadrant. Urinary bladder: Decompressed with limited evaluation Genitourinary structures: Uterus and ovaries are not identified. Adnexal regions appear unremarkable. Osseous structures: No suspicious lytic or sclerotic lesions. There is some sclerosis along the media l right symphysis pubis. Sacroiliac joint degenerative changes are present. Degenerative changes are present L5-S1 facets IMPRESSIONS: 1. No acute process to account for right lower quadrant pain.
--- NOTE | 2017-04-28 16:31 | HP ---
HISTORY AND PHYSICAL CHIEF COMPLAINTS: Chest pain and abdominal pain. HISTORY OF PRESENT ILLNESS: This 47-year-old woman with a past medical history of multiple medical problems, including history of pneumonia, thyroid disorder, small brain bleed in 2008, dizziness, anxiety, depression, being followed by Dr. Dominga Deal in the outpatient setting, was complaining of chest pain. The patient yesterday had chest pain felt in the anterior part of the chest which radiated to the left arm. The patient also had right upper quadrant abdominal pain radiating to the right lower quadrant. There is no history of any fever, rigor or chills, no history of headache, loss of consciousness, seizures. The patient is not having any associated sweating or palpitations. No history of shortness of breath, hematochezia or melena at this time. PAST MEDICAL HISTORY: 1. History of pneumonia. 2. Thyroid disorder. 3. History of small brain bleed. 4. Hysterectomy. 5. Anxiety, depression. HOME MEDICATIONS: 1. Dyazide 1 capsule p.o. daily. 2. Omeprazole 20 mg daily p.r.n. 3. Synthroid 75 mcg p.o. daily. 4. [place] 1 tablet q.6 p.r.n. 5. Amaryl 2 mg before breakfast. 6. Celexa 20 mg p.o. daily. ALLERGIES: 1. BEE VENOM. 2. PROCHLORPERAZINE. 3. PROMETHAZINE. 4. CATS. FAMILY HISTORY: History of diabetes mellitus, myocardial infarction and lung cancer. SOCIAL HISTORY: No history of smoking. No history of alcohol. REVIEW OF SYSTEMS: ENT: No diminished hearing. No diminished vision. CARDIOVASCULAR SYSTEM: As mentioned earlier. RESPIRATORY SYSTEM: As mentioned earlier. GI: As mentioned earlier. : No dysuria or retention. NERVOUS SYSTEM: No numbness, weakness. ALLERGY/IMMUNOLOGY: No asthma, hayfever. MUSCULOSKELETAL: As mentioned earlier. HEMATOLOGY/ONCOLOGY: No history of anemia. ENDOCRINE: Hypothyroidism. CONSTITUTIONAL: As mentioned earlier. DERMATOLOGY: Negative. RHEUMATOLOGY: Negative. PSYCHIATRY: As mentioned earlier. PHYSICAL EXAMINATION: Patient is alert, oriented x3. Pulse 81, blood pressure 106/73, respiration 18, temperature 98.4, pulse ox 94% on room air. HEENT: Conjunctivae normal. Oral mucosa moist. NECK: No jugular venous distention. No carotid bruit. No lymph node enlargement. CARDIOVASCULAR SYSTEM: S1, S2 muffled. No S3. No S4. RESPIRATORY SYSTEM: Breath sounds diminished at the bases. No rhonchi. No crackles. ABDOMEN: Soft. Mild diffuse discomfort on palpation on the right side of the abdomen. No guarding. No rigidity. No mass palpable. LEGS: No edema. No swelling. NERVOUS SYSTEM: Higher functions as mentioned earlier. Moves all 4 limbs. No focal motor or sensory deficit. LYMPHATICS: No lymph node palpable in neck, axillae or groin. SKIN: No ulcer, rash, bleeding. LABS: CBC within normal limits. AST 53, ALT 57. ASSESSMENT: 1. Chest pain for evaluation; possible unstable angina. Otherwise, abdominal pain for evaluation; rule out appendicitis. 2. History of pneumonia. 3. History of small brain bleed. 4. History of degenerative joint disease. 5. History of hysterectomy. 6. Anxiety, depression. RECOMMENDATIONS AND DISCUSSION: In this 47-year-old woman who presented with multiple complex medical issues, we will monitor the patient closely, continue the current medications, continue with symptomatic treatment, repeat labs. Stress test. Resume the home medications. Proton pump inhibitors. Prognosis guarded because of multiple complex medical issues. Further recommendations to follow. MMODL / IJN: [id number] /
[2017-04-28 17:19] LABS: Glucose,Whole Blood 90 mg/dL (75-99)
[2017-04-28] MEDS: HYDROmorphone 2 MG TAB PO PRN (20:14)
[2017-04-28 20:19] LABS: Glucose,Whole Blood 143 mg/dL (75-99)
[2017-04-29] MEDS: HYDROmorphone 2 MG TAB PO PRN ×2 (01:40→06:59)
[2017-04-29] MEDS: HYDROcodone/APAP 7.5-325MG 1 EACH TAB PO PRN (03:26)
[2017-04-29 03:57] VITALS: TEMP 98
[2017-04-29] MEDS: LEVOTHYROXINE 75 MCG TAB PO SCH (05:09)
[2017-04-29] MEDS: SODIUM CHLORIDE 0.9% 1,000 ML IV SCH (05:58)
[2017-04-29 06:48] LABS: Glucose,Whole Blood 103 mg/dL (75-99)
[2017-04-29 07:37] LABS: HCT 38.2 % (34.0-46.0); HGB 12.5 gm/dL (11.4-16.0); MCH 29.7 pg (25.0-35.0); MCHC 32.9 g/dL (31.0-37.0); MCV 90.5 fL (80.0-100.0); Mean Platelet Volume 6.9; Platelet Count 251 k/uL (150-450); RBC 4.22 m/uL (3.80-5.40); RDW 12.3 % (11.5-15.5); WBC 4.8 k/uL (3.8-10.6)
[2017-04-29 07:41] VITALS: BP 94/58; PULSE 66; RESP 16
[2017-04-29 07:42] LABS: ALT 49 U/L (9-52); AST 38 U/L (14-36); Albumin 3.3 g/dL (3.5-5.0); Alkaline Phosphatase 69 U/L (38-126); Anion Gap 9 mmol/L; Blood Urea Nitrogen 9 mg/dL (7-17); Calcium 8.4 mg/dL (8.4-10.2); Carbon Dioxide 28 mmol/L (22-30); Chloride 105 mmol/L (98-107); Cholesterol 120 mg/dL (<200); Glucose 105 mg/dL (74-99); HDL Cholesterol 29 mg/dL (40-60); LDL Cholesterol,Calculated 74 mg/dL (0-99); Potassium 4.2 mmol/L (3.5-5.1); Sodium 142 mmol/L (137-145); Total Bilirubin 0.3 mg/dL (0.2-1.3); Total Protein 6.2 g/dL (6.3-8.2); Triglycerides 87 mg/dL (<150)
[2017-04-29] MEDS ORDERED: ASPIRIN 325 MG TAB PO SCH (09:00)
[2017-04-29] MEDS: PANTOPRAZOLE 40 MG/10 ML VIAL IVP SCH (09:34)
[2017-04-29] MEDS: TRIAMTERENE-HCTZ 37.5-25MG 1 EACH CAP PO SCH (09:34)
[2017-04-29] MEDS: CITALOPRAM HYDROBROMIDE 20 MG TAB PO SCH (09:34)
[2017-04-29] MEDS: GLIMEPIRIDE 2 MG TAB PO SCH (09:35)
[2017-04-29 12:04] LABS: Glucose,Whole Blood 116 mg/dL (75-99)
--- NOTE | 2017-04-30 00:26 | DS ---
DISCHARGE SUMMARY FINAL DIAGNOSES: 1. Chest pain, possible musculoskeletal. Negative stress echo. 2. History of pneumonia. 3. Abdominal pain, nonspecific, possible gastritis or gastroenteritis. 4. History of small brain bleed. 5. History of degenerative joint disease. 6. History of hysterectomy. 7. Anxiety and depression. DISCHARGE DISPOSITION: The patient is discharged in stable condition with guarded prognosis. HISTORY OF PRESENT ILLNESS: This 41-year-old woman with a past medical history of multiple medical problems was admitted with chest pain and abdominal pain. Treated symptomatically. Myocardial infarction was ruled out. Cardiology ordered a stress echo that was within normal limits. The patient is discharged in stable condition with guarded prognosis after cardiology clearance. DISCHARGE ADVICE: 1. Diet is cardiac. 2. Activity limited until followup. 3. Followup with Dr. Dominga Deal. 4. Followup with Dr. Wilson as advised. MEDICATIONS: 1. Celexa 20 mg p.o. daily. 2. Amaryl 2 mg a.c. breakfast. 3. Hydrocodone 1 tablet every 6 hours p.r.n. 4. Synthroid 75 mcg p.o. daily. 5. Omeprazole 20 mg p.o. daily. 6. Triamterene hydrochlorothiazide 1 p.o. daily. Once again, the patient will be discharged in stable condition with a guarded prognosis. 1. MMODL / IJN: [id number] /
== END 2017-04-29 12:40 | disposition home or self-care (01) ==
LOC: EC 23:02 → 3OBS 04-28 00:46
PROVIDERS: ADMIT Hospitalist; ATTEND Hospitalist
DX: R07.89 Other chest pain (principal); R10.11 Right upper quadrant pain; E11.9 Type 2 diabetes mellitus without complications; R53.83 Other fatigue; R06.02 Shortness of breath; R11.0 Nausea; R61 Generalized hyperhidrosis; R74.0 Nonspecific elevation of levels of transaminase and lactic acid dehydrogenase [LDH]; E03.9 Hypothyroidism, unspecified; I10 Essential (primary) hypertension; F41.9 Anxiety disorder, unspecified; F32.9 Major depressive disorder, single episode, unspecified; Z87.01 Personal history of pneumonia (recurrent); E66.9 Obesity, unspecified; Z90.49 Acquired absence of other specified parts of digestive tract; Z68.41 Body mass index [BMI] 40.0-44.9, adult; Z79.899 Other long term (current) drug therapy; Z79.84 Long term (current) use of oral hypoglycemic drugs; Z88.8 Allergy status to other drugs, medicaments and biological substances; Z91.030 Bee allergy status; Z91.048 Other nonmedicinal substance allergy status; Z80.1 Family history of malignant neoplasm of trachea, bronchus and lung; Z82.49 Family history of ischemic heart disease and other diseases of the circulatory system; M19.90 Unspecified osteoarthritis, unspecified site; Z90.710 Acquired absence of both cervix and uterus
CPT/HCPCS: 99285; 96361 ×4; 96374 ×2; 96375 ×3; 96376 ×2; 36415; 93005; 93017; 93306; 93350; 80061 ×2; 80053 ×2; 85652; 82150; 82550 ×2; 82553 ×2; 83690; 83735; 84484 ×2; 85025; 85027; 85610; 85730; 86140; 87502; 71046; 74176; G0378 ×2; J2270 ×2; J2405; C9113 ×2; Q9950

== ENCOUNTER 2017-09-17 16:36 | Observation (INO) | payer BC ==
--- NOTE | 2017-09-17 17:14 | ED ---
General Adult HPI - General Chief complaint: Chest Pain Stated complaint: chest and arm pain Source: patient Mode of arrival: ambulatory Limitations: no limitations - History of Present Illness Initial comments: Dictation was produced using [employer] dictation software. please excuse any grammatical, word or spelling errors. Chief Complaint: 47-year-old female past medical history of diabetes and thyroid disorder presents with chest pain 1 day. History of Present Illness: Patient states that earlier today she was at work sitting at her desk when she began experiencing sharp left-sided chest pain. With the episode of chest pain she did state that she had radiation to her back , left jaw and left upper extremity. Patient was concerned and came to the emergency department. Denies any shortness of breath. Patient denies any cardiac history in the past. No family history of cardiac disease. The ROS documented in this emergency department record has been reviewed and confirmed by me. Those systems with pertinent positive or negative responses have been documented in the HPI. All other systems are other negative and/or noncontributory. - Related Data Home Medications Medication Instructions Recorded Confirmed Levothyroxine Sodium [Synthroid] 75 mcg PO DAILY 09/17/13 09/17/17 Citalopram Hydrobromide [CeleXA] 20 mg PO HS 11/05/16 09/17/17 Glimepiride [Amaryl] 2 mg PO AC-BRKFST 04/27/17 09/17/17 Aspirin [Adult Low Dose Aspirin EC] 81 mg PO DAILY 09/17/17 09/17/17 Previous Rx's Medication Instructions Recorded Hydrocodone/Acetaminophen [[place] 1 tab PO Q6HR PRN #20 tablet 04/29/17 7.5-325] Allergies Allergy/AdvReac Type Severity Reaction Status Date / Time bee venom protein (honey bee) Allergy Swelling Verified 09/17/17 17:44 prochlorperazine edisylate Allergy Rash/Hives Verified 09/17/17 17:44 [From Compazine] prochlorperazine maleate Allergy Rash/Hives Verified 09/17/17 17:44 [From Compazine] promethazine HCl AdvReac Confusion Verified 09/17/17 17:44 [From Phenergan] cats Allergy Rash/Hives Uncoded 09/17/17 16:53 Review of Systems ROS Statement: Those systems with pertinent positive or pertinent negative responses have been documented in the HPI. ROS Other: All systems not noted in ROS Statement are negative. Past Medical History Past Medical History: Pneumonia, Thyroid Disorder Additional Past Medical History / Comment(s): "small brain bleed" 2009, dizziness. History of Any Multi-Drug Resistant Organisms: None Reported Past Surgical History: Breast Surgery, Hysterectomy, Orthopedic Surgery Additional Past Surgical History / Comment(s): breast reduction, partial hysterectomy-Still has overies, 4 knee surgeries Past Anesthesia/Blood Transfusion Reactions: No Reported Reaction Past Psychological History: Anxiety, Depression Smoking Status: Never smoker Past Alcohol Use History: Occasional Past Drug Use History: None Reported - Past Family History Father Family Medical History: Diabetes Mellitus, Myocardial Infarction ([place]) Mother Family Medical History: Cancer, Thyroid Disorder Additional Family Medical History / Comment(s): lung CA General Exam - General Exam Comments Initial Comments: PHYSICAL EXAM: General Impression: Alert and oriented x3, not in acute distress HEENT: Normocephalic atraumatic, extra-ocular movements intact, pupils equal and reactive to light bilaterally, mucous membranes moist. Cardiovascular: Heart regular rate and rhythm, S1&S2 audible, no murmurs, rubs or gallops Chest: Lungs clear to auscultation bilaterally, no rhonchi, no wheeze, no rales Abdomen: Bowel sounds present, abdomen soft, non-tender, non-distended, no organomegaly Musculoskeletal: Pulses present and equal in all extremities, no peripheral edema Motor: Power 5/5 bilaterally, no focal deficits noted Neurological: CN II-XII grossly intact, no focal motor or sensory deficits noted Skin: Intact with no visualized rashes Psych: Normal affect and mood Limitations: no limitations Course Vital Signs 09/17/17 09/17/17 16:51 17:16 Temperature 98.2 F Pulse Rate 79 75 Respiratory 18 20 Rate Blood Pressure 127/81 121/70 O2 Sat by Pulse 97 99 Oximetry Medical Decision Making - Medical Decision Making ED course: 47-year-old female with past medical history of diabetes and thyroid disorder presents with atypical chest pain with typical features. All signs upon arrival are within acceptable limits. Patient appears well. Denies any chest pain at the moment. Pulse exam is normal. Lungs are clear to auscultation. Physical examination is benign. No clinical suspicion of pulmonary emboli. EKG shows no acute processes. Laboratory work was obtained. CBC unremarkable. Coag panel unremarkable. D-dimer is within normal limits. Metabolic panel shows no acute processes. Mild hyperglycemia 102. Urinalysis is negative. Beta hCG is negative. Chest x-ray was obtained showing small scarring at the left lung base that appears to be chronic. Discussed the patient the option of being admitted observation for cardiac stress test or being discharged if she is able to get a cardiac stress test within the next 48-72 hours. She reports that she preferred to stay and be admitted to observation for cardiac stress test tomorrow. Discussed patient case with Dr. colin who is willing to accept the admission to observation. Patient given dose of aspirin. EKG Interpretation: A 12 lead EKG was obtained. It was interpreted by myself and attending physician. There is a P wave before every QRS complex. Rate is 82. Rhythm is normal sinus rhythm, GA interval 162, QRS duration 98, QTc 446. QT is not prolonged. No ST segment depression or elevation. Overall, this EKG is unremarkable - Lab Data Result diagrams: 09/17/17 17:10 09/17/17 17:10 Lab Results 09/17/17 09/17/17 09/17/17 Range/Units 17:10 17:10 17:10 WBC 7.3 (3.8-10.6) k/uL RBC 4.49 (3.80-5.40) m/uL Hgb 13.6 (11.4-16.0) gm/dL Hct 39.5 (34.0-46.0) % MCV 88.0 (80.0-100.0) fL MCH 30.2 (25.0-35.0) pg MCHC 34.3 (31.0-37.0) g/dL RDW 13.0 (11.5-15.5) % Plt Count 232 (150-450) k/uL Neutrophils % 62 % Lymphocytes % 26 % Monocytes % 6 % Eosinophils % 3 % Basophils % 0 % Neutrophils # 4.5 (1.3-7.7) k/uL Lymphocytes # 1.9 (1.0-4.8) k/uL Monocytes # 0.4 (0-1.0) k/uL Eosinophils # 0.2 (0-0.7) k/uL Basophils # 0.0 (0-0.2) k/uL PT (9.0-12.0) sec INR (<1.2) APTT (22.0-30.0) sec D-Dimer (<0.60) mg/L FEU Sodium 139 (137-145) mmol/L Potassium 4.1 (3.5-5.1) mmol/L Chloride 105 (98-107) mmol/L Carbon Dioxide 25 (22-30) mmol/L Anion Gap 9 mmol/L BUN 12 (7-17) mg/dL Creatinine 0.60 (0.52-1.04) mg/dL Est GFR (CKD-EPI)AfAm >90 (>60 ml/min/1.73 sqM) Est GFR (CKD-EPI)NonAf >90 (>60 ml/min/1.73 sqM) Glucose 102 H (74-99) mg/dL POC Glucose (mg/dL) (75-99) mg/dL POC Glu Parts Runner ID Calcium 9.4 (8.4-10.2) mg/dL Magnesium 1.9 (1.6-2.3) mg/dL Total Bilirubin 0.3 (0.2-1.3) mg/dL AST 31 (14-36) U/L ALT 41 (9-52) U/L Alkaline Phosphatase 80 (38-126) U/L Total Creatine Kinase 48 (30-135) U/L CK-MB (CK-2) 0.7 (0.0-2.4) ng/mL CK-MB (CK-2) Rel Index 1.5 Troponin I <0.012 (0.000-0.034) ng/mL Total Protein 7.0 (6.3-8.2) g/dL Albumin 4.0 (3.5-5.0) g/dL Lipase 81 (23-300) U/L Urine Color Urine Appearance (Clear) Urine pH (5.0-8.0) Ur Specific [place] (1.001-1.035) Urine Protein (Negative) Urine Glucose (UA) (Negative) Urine Ketones (Negative) Urine Blood (Negative) Urine Nitrite (Negative) Urine Bilirubin (Negative) Urine Urobilinogen (<2.0) mg/dL Ur Leukocyte Esterase (Negative) Urine HCG, Qual (Not Detectd) 07/18/18 07/18/18 07/18/18 Range/Units 17:10 17:10 17:10 WBC (3.8-10.6) k/uL RBC (3.80-5.40) m/uL Hgb (11.4-16.0) gm/dL Hct (34.0-46.0) % MCV (80.0-100.0) fL MCH (25.0-35.0) pg MCHC (31.0-37.0) g/dL RDW (11.5-15.5) % Plt Count (150-450) k/uL Neutrophils % % Lymphocytes % % Monocytes % % Eosinophils % % Basophils % % Neutrophils # (1.3-7.7) k/uL Lymphocytes # (1.0-4.8) k/uL Monocytes # (0-1.0) k/uL Eosinophils # (0-0.7) k/uL Basophils # (0-0.2) k/uL PT 9.7 (9.0-12.0) sec INR 1.0 (<1.2) APTT 24.8 (22.0-30.0) sec D-Dimer 0.40 (<0.60) mg/L FEU Sodium (137-145) mmol/L Potassium (3.5-5.1) mmol/L Chloride (98-107) mmol/L Carbon Dioxide (22-30) mmol/L Anion Gap mmol/L BUN (7-17) mg/dL Creatinine (0.52-1.04) mg/dL Est GFR (CKD-EPI)AfAm (>60 ml/min/1.73 sqM) Est GFR (CKD-EPI)NonAf (>60 ml/min/1.73 sqM) Glucose (74-99) mg/dL POC Glucose (mg/dL) (75-99) mg/dL POC Glu Parts Runner ID Calcium (8.4-10.2) mg/dL Magnesium (1.6-2.3) mg/dL Total Bilirubin (0.2-1.3) mg/dL AST (14-36) U/L ALT (9-52) U/L Alkaline Phosphatase (38-126) U/L Total Creatine Kinase (30-135) U/L CK-MB (CK-2) (0.0-2.4) ng/mL CK-MB (CK-2) Rel Index Troponin I (0.000-0.034) ng/mL Total Protein (6.3-8.2) g/dL Albumin (3.5-5.0) g/dL Lipase (23-300) U/L Urine Color Yellow Urine Appearance Clear (Clear) Urine pH 6.5 (5.0-8.0) Ur Specific [place] 1.016 (1.001-1.035) Urine Protein Negative (Negative) Urine Glucose (UA) Negative (Negative) Urine Ketones Negative (Negative) Urine Blood Negative (Negative) Urine Nitrite Negative (Negative) Urine Bilirubin Negative (Negative) Urine Urobilinogen <2.0 (<2.0) mg/dL Ur Leukocyte Esterase Negative (Negative) Urine HCG, Qual Not Detected (Not Detectd) 09/17/17 Range/Units 19:08 WBC (3.8-10.6) k/uL RBC (3.80-5.40) m/uL Hgb (11.4-16.0) gm/dL Hct (34.0-46.0) % MCV (80.0-100.0) fL MCH (25.0-35.0) pg MCHC (31.0-37.0) g/dL RDW (11.5-15.5) % Plt Count (150-450) k/uL Neutrophils % % Lymphocytes % % Monocytes % % Eosinophils % % Basophils % % Neutrophils # (1.3-7.7) k/uL Lymphocytes # (1.0-4.8) k/uL Monocytes # (0-1.0) k/uL Eosinophils # (0-0.7) k/uL Basophils # (0-0.2) k/uL PT (9.0-12.0) sec INR (<1.2) APTT (22.0-30.0) sec D-Dimer (<0.60) mg/L FEU Sodium (137-145) mmol/L Potassium (3.5-5.1) mmol/L Chloride (98-107) mmol/L Carbon Dioxide (22-30) mmol/L Anion Gap mmol/L BUN (7-17) mg/dL Creatinine (0.52-1.04) mg/dL Est GFR (CKD-EPI)AfAm (>60 ml/min/1.73 sqM) Est GFR (CKD-EPI)NonAf (>60 ml/min/1.73 sqM) Glucose (74-99) mg/dL POC Glucose (mg/dL) 93 (75-99) mg/dL POC Glu Parts Runner ID Lilia Cassidy Calcium (8.4-10.2) mg/dL Magnesium (1.6-2.3) mg/dL Total Bilirubin (0.2-1.3) mg/dL AST (14-36) U/L ALT (9-52) U/L Alkaline Phosphatase (38-126) U/L Total Creatine Kinase (30-135) U/L CK-MB (CK-2) (0.0-2.4) ng/mL CK-MB (CK-2) Rel Index Troponin I (0.000-0.034) ng/mL Total Protein (6.3-8.2) g/dL Albumin (3.5-5.0) g/dL Lipase (23-300) U/L Urine Color Urine Appearance (Clear) Urine pH (5.0-8.0) Ur Specific [place] (1.001-1.035) Urine Protein (Negative) Urine Glucose (UA) (Negative) Urine Ketones (Negative) Urine Blood (Negative) Urine Nitrite (Negative) Urine Bilirubin (Negative) Urine Urobilinogen (<2.0) mg/dL Ur Leukocyte Esterase (Negative) Urine HCG, Qual (Not Detectd) Disposition Clinical Impression: Chest pain Disposition: ADMITTED IP TO THIS HOSP Condition: Fair Referrals: Dominga Deal MD [Primary Care Provider] - 1-2 days Time of Disposition: 19:29
[2017-09-17 17:35] LABS: Basophils % (A) 0 %; Eosinophils # (A) 0.2 k/uL (0-0.7); Eosinophils % (A) 3 %; HCT 39.5 % (34.0-46.0); HGB 13.6 gm/dL (11.4-16.0); Lymphocytes # (A) 1.9 k/uL (1.0-4.8); Lymphocytes % (A) 26 %; MCH 30.2 pg (25.0-35.0); MCHC 34.3 g/dL (31.0-37.0); Mean Platelet Volume 7.2; Monocytes # (A) 0.4 k/uL (0-1.0); Monocytes % (A) 6 %; Neutrophils # (A) 4.5 k/uL (1.3-7.7); Neutrophils % (A) 62 %; Platelet Count 232 k/uL (150-450); RBC 4.49 m/uL (3.80-5.40); WBC 7.3 k/uL (3.8-10.6)
[2017-09-17 17:36] LABS: Appearance,Urine Clear (Clear); Bilirubin,Urine Negative (Negative); Blood,Urine Negative (Negative); Color,Urine Yellow; Glucose,Urine (UA) Negative (Negative); Ketones,Urine Negative (Negative); Leukocyte Esterase,Urine Negative (Negative); Nitrite,Urine Negative (Negative); PH, Urine 6.5 (5.0-8.0); Protein,Urine Negative (Negative); Specific Gravity,Urine 1.016 (1.001-1.035); Urobilinogen,Urine <2.0 mg/dL (<2.0)
[2017-09-17 17:53] LABS: ALT 41 U/L (9-52); AST 31 U/L (14-36); Alkaline Phosphatase 80 U/L (38-126); Anion Gap 9 mmol/L; Blood Urea Nitrogen 12 mg/dL (7-17); Calcium 9.4 mg/dL (8.4-10.2); Carbon Dioxide 25 mmol/L (22-30); Chloride 105 mmol/L (98-107); Glucose 102 mg/dL (74-99); Lipase 81 U/L (23-300); Magnesium 1.9 mg/dL (1.6-2.3); Potassium 4.1 mmol/L (3.5-5.1); Sodium 139 mmol/L (137-145); Total Bilirubin 0.3 mg/dL (0.2-1.3)
[2017-09-17 17:59] LABS: Creatine Kinase 48 U/L (30-135)
[2017-09-17 18:00] LABS: D-Dimer 0.4 mg/L FEU (<0.60); Partial Thromboplastin Time 24.8 sec (22.0-30.0); Prothrombin Time 9.7 sec (9.0-12.0)
[2017-09-17 18:12] LABS: Creatine Kinase MB 0.7 ng/mL (0.0-2.4); Troponin I <0.012 ng/mL (0.000-0.034)
--- NOTE | 2017-09-17 18:15 | XR ---
EXAMINATION TYPE: XR chest 2V DATE OF EXAM: 09/17/2017 COMPARISON: 04/27/2017 HISTORY: Chest pain TECHNIQUE: Frontal and lateral views of the chest are obtained. FINDINGS: Heart and mediastinum are normal. Lungs are clear of consolidation. Diaphragm is normal. T here are chest leads. Bony thorax is intact. There are small linear density at the left lung base. IMPRESSION: Small scarring at the left lung base without change. Normal heart.
[2017-09-17 19:11] LABS: Glucose,Whole Blood 93 mg/dL (75-99)
[2017-09-17] MEDS ORDERED: NALOXONE 0.4 MG/ML 1 ML VIAL IV PRN (19:29)
[2017-09-17] MEDS ORDERED: ASPIRIN 81 MG PO STA (19:30)
[2017-09-17] MEDS ORDERED: CITALOPRAM HYDROBROMIDE 20 MG TAB PO SCH (22:00)
[2017-09-17] MEDS: HEPARIN SODIUM,PORCINE 5,000 UNIT/ML 1 ML VIAL SQ SCH (22:14)
[2017-09-17] MEDS: MORPHINE SULFATE 2 MG/ML SYRINGE IVP PRN (22:14)
[2017-09-18 00:56] LABS: Creatine Kinase 42 U/L (30-135)
[2017-09-18 01:09] LABS: Creatine Kinase MB 0.7 ng/mL (0.0-2.4); Troponin I <0.012 ng/mL (0.000-0.034)
[2017-09-18] MEDS: HYDROcodone/APAP 7.5-325MG 1 EACH TAB PO PRN ×2 (03:28→11:14)
[2017-09-18] MEDS ORDERED: LEVOTHYROXINE 75 MCG TAB PO SCH (06:30)
[2017-09-18] MEDS: MORPHINE SULFATE 2 MG/ML SYRINGE IVP PRN (06:58)
[2017-09-18] MEDS ORDERED: GLIMEPIRIDE 4 MG TAB PO SCH (07:30)
[2017-09-18 07:32] LABS: Creatine Kinase 37 U/L (30-135)
[2017-09-18 07:44] LABS: Creatine Kinase MB 0.6 ng/mL (0.0-2.4); Troponin I <0.012 ng/mL (0.000-0.034)
[2017-09-18] MEDS ORDERED: ASPIRIN 81 MG PO SCH (09:00)
[2017-09-18] MEDS ORDERED: ATORVASTATIN 20 MG TAB PO SCH (09:00)
[2017-09-18 09:41] LABS: Glucose,Whole Blood 111 mg/dL (75-99)
[2017-09-18] MEDS: HEPARIN SODIUM,PORCINE 5,000 UNIT/ML 1 ML VIAL SQ SCH (09:46)
[2017-09-18 11:34] VITALS: BP 110/73; PULSE 60; RESP 16; TEMP 97.5
[2017-09-18 11:58] LABS: Glucose,Whole Blood 129 mg/dL (75-99)
--- NOTE | 2017-09-18 15:51 | P.HPIM ---
History of Present Illness 47-year-old pleasant female came in with complains of chest pain reproducible chest pain. Patient was also company of some mild tingling numbness radiating to left thumb because of and the left side of the neck because of which patient came to ER patient the chest pain is nonexertional and nonpleuritic not associated with food. Pressure-like sensation pain patient does rule out a concurrent syndromes troponins are negative EKG is negative patient was a valid by cardiology cleared for discharge. Patient had recent extensive evaluation with a stress test a few months ago along with an echo cardiac exam which are essentially within normal limits. Patient had palpitations at that time. Patient will follow Dr. Wilson as an outpatient will be discharged today. Patient is also comparing of some dizziness lightheadedness yesterday couple episodes which resolved at this point of time patient was bit hypotensive although patient is not on any antidepressant medications at home. EKGs did not show any significant abnormality telemetry did not show any significant abnormality. Patient Continues to have these episodes of lightheadedness and palpitations patient may need a Holter monitor at that time as of now patient is clinically doing well will be discharged today. Cardiology is recommending a statin 20 mg of Lipitor which will be prescribed to the patient. Review of Systems REVIEW OF SYSTEMS: CONSTITUTIONAL: No fever, no malaise, no fatigue. HEENT: No recent visual problems or hearing problems. Denied any sore throat. CARDIOVASCULAR: No orthopnea, PND, no palpitations, no syncope. PULMONARY: No shortness of breath, no cough, no hemoptysis. GASTROINTESTINAL: No diarrhea, no nausea, no vomiting, no abdominal pain. Normoactive bowel sounds. NEUROLOGICAL: No headaches, no weakness, no numbness. HEMATOLOGICAL: Denies any bleeding or petechiae. GENITOURINARY: Denies any burning micturition, frequency, or urgency. MUSCULOSKELETAL/RHEUMATOLOGICAL: Denies any joint pain, swelling, or any muscle pain. ENDOCRINE: Denies any polyuria or polydipsia. The rest of the 14-point review of systems is negative. Past Medical History Past Medical History: Chest Pain / Angina, Pneumonia, Thyroid Disorder Additional Past Medical History / Comment(s): "small brain bleed" 2008 not sure of cause, bronchitis,sinusitis,apr 2017 had stress echo/stress test pt stated normal, in past has some acid reflux History of Any Multi-Drug Resistant Organisms: None Reported Past Surgical History: Breast Surgery, Hysterectomy, Orthopedic Surgery Additional Past Surgical History / Comment(s): breast reduction, partial hysterectomy-Still has overies, 4 knee surgeries, cosmetic dental procedures- veneers Past Anesthesia/Blood Transfusion Reactions: No Reported Reaction Smoking Status: Never smoker - Past Family History Father Family Medical History: Diabetes Mellitus, Myocardial Infarction ([place]) Mother Family Medical History: Cancer, Thyroid Disorder Additional Family Medical History / Comment(s): lung CA Medications and Allergies Home Medications Medication Instructions Recorded Confirmed Type Levothyroxine Sodium [Synthroid] 75 mcg PO DAILY 09/17/13 09/17/17 History Citalopram Hydrobromide [CeleXA] 20 mg PO HS 11/05/16 09/17/17 History Glimepiride [Amaryl] 4 mg PO AC-BRKFST 04/27/17 09/17/17 History Hydrocodone/Acetaminophen [[place] 1 tab PO Q6HR PRN #20 tablet 04/29/17 09/17/17 Rx 7.5-325] Aspirin [Adult Low Dose Aspirin EC] 81 mg PO DAILY 09/17/17 09/17/17 History Allergies Allergy/AdvReac Type Severity Reaction Status Date / Time bee venom protein (honey bee) Allergy Swelling Verified 09/17/17 21:15 prochlorperazine edisylate Allergy Rash/Hives Verified 09/17/17 21:15 [From Compazine] prochlorperazine maleate Allergy Rash/Hives Verified 09/17/17 21:15 [From Compazine] promethazine HCl AdvReac Confusion Verified 09/17/17 21:15 [From Phenergan] cats Allergy Rash/Hives Uncoded 09/17/17 21:15 Physical Exam Vitals: Vital Signs Temp Pulse Pulse Pulse Resp BP BP 09/18/17 11:07 97.5 F L 60 16 110/73 09/18/17 08:00 18 09/18/17 06:51 97.7 F 52 L 18 96/67 09/18/17 04:00 98 F 68 18 96/56 09/18/17 00:00 98.2 F 66 16 110/55 09/17/17 20:34 98.3 F 09/17/17 20:00 82 20 110/57 09/17/17 19:00 82 20 109/62 09/17/17 18:00 82 20 109/61 09/17/17 17:16 75 20 121/70 09/17/17 16:51 98.2 F 79 18 127/81 Pulse Ox 09/18/17 11:07 97 09/18/17 08:00 09/18/17 06:51 96 09/18/17 04:00 94 L 09/18/17 00:00 94 L 09/17/17 20:34 09/17/17 20:00 96 09/17/17 19:00 95 09/17/17 18:00 97 09/17/17 17:16 99 09/17/17 16:51 97 Intake and Output 09/18/17 09/18/17 09/18/17 06:59 14:59 22:59 Intake Total 240 Balance 240 Intake: Oral 240 Other: Voiding Method Toilet Toilet # Voids 1 2 PHYSICAL EXAMINATION: GENERAL: The patient is alert and oriented x3, not in any acute distress. Well developed, well nourished. HEENT: Pupils are round and equally reacting to light. EOMI. No scleral icterus. No conjunctival pallor. Normocephalic, atraumatic. No pharyngeal erythema. No thyromegaly. CARDIOVASCULAR: S1 and S2 present. No murmurs, rubs, or gallops. PULMONARY: Chest is clear to auscultation, no wheezing or crackles. ABDOMEN: Soft, nontender, nondistended, normoactive bowel sounds. No palpable organomegaly. MUSCULOSKELETAL: No joint swelling or deformity. EXTREMITIES: No cyanosis, clubbing, or pedal edema. NEUROLOGICAL: Gross neurological examination did not reveal any focal deficits. SKIN: No rashes. Results CBC & Chem 7: 09/17/17 17:10 09/17/17 17:10 Labs: Abnormal Lab Results - Last 24 Hours (Table) 09/17/17 09/18/17 09/18/17 Range/Units 17:10 09:39 11:56 Glucose 102 H (74-99) mg/dL POC Glucose (mg/dL) 111 H 129 H (75-99) mg/dL Thrombosis Risk Factor Assmnt - Choose All That Apply Each Factor Represents 1 point: Age 41-60 years, Obesity (BMI >25) Thrombosis Risk Factor Assessment Total Risk Factor Score: 2 Thrombosis Risk Factor Assessment Level: Low Risk Assessment and Plan Plan: -Chest pain rule out a concurrent syndromes rule out unstable angina. No further workup as mentioned above. -Dizziness unsure of the etiology will need a Holter monitor if she has dizziness and palpitations again in future. -Hypothyroidism -Type 2 diabetes mellitus -Hyperlipidemia For above-mentioned chronic medical problems patient can continue his home medications follow with PCP Dr. Deal as an outpatient
[2017-09-18 17:22] LABS: Hemoglobin A1C 7.4 % (4.0-6.0)
[2017-09-18 17:24] LABS: Glucose,Whole Blood 180 mg/dL (75-99)
== END 2017-09-18 17:45 | disposition home or self-care (01) ==
LOC: EC 16:36 → 3OBS 19:29
PROVIDERS: ADMIT Internal Medicine; ATTEND Internal Medicine
DX: R07.89 Other chest pain (principal); E03.9 Hypothyroidism, unspecified; E11.65 Type 2 diabetes mellitus with hyperglycemia; R20.2 Paresthesia of skin; R20.0 Anesthesia of skin; R00.2 Palpitations; M79.602 Pain in left arm; I95.9 Hypotension, unspecified; R42 Dizziness and giddiness; E78.5 Hyperlipidemia, unspecified; F41.9 Anxiety disorder, unspecified; F32.9 Major depressive disorder, single episode, unspecified; Z79.890 Hormone replacement therapy; Z79.899 Other long term (current) drug therapy; Z79.84 Long term (current) use of oral hypoglycemic drugs; Z79.82 Long term (current) use of aspirin; Z91.030 Bee allergy status; Z88.8 Allergy status to other drugs, medicaments and biological substances; Z91.048 Other nonmedicinal substance allergy status; Z87.01 Personal history of pneumonia (recurrent); Z82.49 Family history of ischemic heart disease and other diseases of the circulatory system; Z80.1 Family history of malignant neoplasm of trachea, bronchus and lung; Z87.09 Personal history of other diseases of the respiratory system; Z87.19 Personal history of other diseases of the digestive system; E66.9 Obesity, unspecified; Z68.39 Body mass index [BMI] 39.0-39.9, adult
CPT/HCPCS: 99285; 96372 ×2; 96374; 96376; 36415; 93005; 85379; 80053; 82550 ×2; 82553 ×2; 83690; 83735; 84484 ×2; 85025; 85610; 85730; 81003; 81025; 83036; 71046; G0378 ×2; J1644 ×2; J2270 ×2

== ENCOUNTER 2017-12-11 15:06 | Emergency (ER) | payer BC ==
[2017-12-11] MEDS ORDERED: SODIUM CHLORIDE 0.9% 500 ML 500 ML IV STA (15:17)
[2017-12-11 15:34] LABS: Appearance,Urine Clear (Clear); Basophils % (A) 0 %; Bilirubin,Urine Negative (Negative); Blood,Urine Negative (Negative); Color,Urine Yellow; Eosinophils # (A) 0.2 k/uL (0-0.7); Eosinophils % (A) 3 %; Glucose,Urine (UA) 3+ (Negative); HCT 43.4 % (34.0-46.0); HGB 14.1 gm/dL (11.4-16.0); Ketones,Urine Negative (Negative); Leukocyte Esterase,Urine Negative (Negative); Lymphocytes # (A) 1.8 k/uL (1.0-4.8); Lymphocytes % (A) 28 %; MCHC 32.4 g/dL (31.0-37.0); MCV 89.3 fL (80.0-100.0); Monocytes # (A) 0.4 k/uL (0-1.0); Monocytes % (A) 6 %; Neutrophils # (A) 3.9 k/uL (1.3-7.7); Neutrophils % (A) 61 %; Nitrite,Urine Negative (Negative); PH, Urine 5.5 (5.0-8.0); Platelet Count 267 k/uL (150-450); Protein,Urine Negative (Negative); RBC 4.86 m/uL (3.80-5.40); RDW 12.7 % (11.5-15.5); Specific Gravity,Urine 1.022 (1.001-1.035); Urobilinogen,Urine <2.0 mg/dL (<2.0); WBC 6.4 k/uL (3.8-10.6)
--- NOTE | 2017-12-11 15:36 | ED ---
General Adult HPI - General Chief complaint: Arrhythmia/Palpitations Stated complaint: palpitations Time Seen by Provider: 12/11/17 15:13 Source: patient, EMS, RN notes reviewed, old records reviewed Mode of arrival: EMS Limitations: no limitations - History of Present Illness Initial comments: 47-year-old female presents for evaluation of palpitations. Patient states she was at a work conference, again feeling flushed and lightheaded. She had palpitations. No significant chest pain, she did have some mild chest tightness. EMS report that the patient was quite anxious, she's been dealing with some stress lately and initially EMS thought that her symptoms may be related to anxiety. Patient has no known coronary artery disease, states her symptoms have resolved at the time my evaluation. She states she ate a normal breakfast and had eaten lunch. She has been drinking water throughout the day. She does not feel any chest pain. No dyspnea. No headache. No focal numbness or weakness. - Related Data Home Medications Medication Instructions Recorded Confirmed Levothyroxine Sodium [Synthroid] 75 mcg PO DAILY 09/17/13 12/11/17 Citalopram Hydrobromide [CeleXA] 20 mg PO HS 11/05/16 12/11/17 Glimepiride [Amaryl] 4 mg PO AC-BRKFST 04/27/17 12/11/17 Atorvastatin [Lipitor] 20 mg PO HS 12/11/17 12/11/17 Previous Rx's Medication Instructions Recorded Hydrocodone/Acetaminophen [[place] 1 tab PO Q6HR PRN #20 tablet 04/29/17 7.5-325] Allergies Allergy/AdvReac Type Severity Reaction Status Date / Time bee venom protein (honey bee) Allergy Swelling Verified 12/11/17 15:39 prochlorperazine edisylate Allergy Rash/Hives Verified 12/11/17 15:39 [From Compazine] prochlorperazine maleate Allergy Rash/Hives Verified 12/11/17 15:39 [From Compazine] promethazine HCl AdvReac Confusion Verified 12/11/17 15:39 [From Phenergan] cats Allergy Rash/Hives Uncoded 12/11/17 15:09 Review of Systems ROS Statement: Those systems with pertinent positive or pertinent negative responses have been documented in the HPI. ROS Other: All systems not noted in ROS Statement are negative. Past Medical History Past Medical History: Chest Pain / Angina, Pneumonia, Thyroid Disorder Additional Past Medical History / Comment(s): "small brain bleed" 2009 not sure of cause, bronchitis,sinusitis,apr 2017 had stress echo/stress test pt stated normal, in past has some acid reflux History of Any Multi-Drug Resistant Organisms: None Reported Past Surgical History: Breast Surgery, Cholecystectomy, Hysterectomy, Orthopedic Surgery Additional Past Surgical History / Comment(s): breast reduction, partial hysterectomy-Still has overies, 4 knee surgeries, cosmetic dental procedures- veneers Past Anesthesia/Blood Transfusion Reactions: No Reported Reaction Past Psychological History: Anxiety, Depression Smoking Status: Never smoker Past Alcohol Use History: None Reported Past Drug Use History: None Reported - Past Family History Father Family Medical History: Diabetes Mellitus, Myocardial Infarction ([place]) Mother Family Medical History: Cancer, Thyroid Disorder Additional Family Medical History / Comment(s): lung CA General Exam Limitations: no limitations General appearance: alert, in no apparent distress Head exam: Present: atraumatic, normocephalic Eye exam: Present: normal appearance, PERRL ENT exam: Present: mucous membranes dry Neck exam: Present: normal inspection, tenderness Respiratory exam: Present: normal lung sounds bilaterally. Absent: respiratory distress, wheezes Cardiovascular Exam: Present: regular rate, normal rhythm GI/Abdominal exam: Present: soft. Absent: distended, tenderness Extremities exam: Present: normal inspection, normal capillary refill. Absent: pedal edema, calf tenderness Neurological exam: Present: alert, oriented X3, CN II-XII intact. Absent: motor sensory deficit Psychiatric exam: Present: normal affect, normal mood Skin exam: Present: warm, dry, intact. Absent: cyanosis, diaphoretic Course Vital Signs 12/11/17 15:09 Temperature 98.1 F Pulse Rate 56 L Respiratory 16 Rate Blood Pressure 111/59 O2 Sat by Pulse 95 Oximetry - Reevaluation(s) Reevaluation #1: 12/11/17 16:23 On reevaluation, patient feels better, no complaints of chest pain or palpitations. EKG Findings - EKG Comments: EKG Findings:: EKG: Sinus bradycardia, left anterior fascicular block, rate of 58, [place] interval 158, QRS duration 90, QTC 418 T-wave inversion in lead 3 which is unchanged from previous EKG August 2017. No ST segment elevation. Medical Decision Making - Medical Decision Making 47-year-old female presenting with palpitations, she did feel somewhat lightheaded. No significant chest pain. Patient admits she has been drinking more fluid than usual and been urinating quite a bit. She is a known diabetic. EKG is sinus rhythm, chest x-ray obtained negative for cardiac disease, CBC is within normal limits, CMP with a normal limits, glucose is elevated 187, urinalysis is 3+ glucose, no ketones. Patient given IV hydration emergency department, on reevaluation she feels fine, vital signs are stable. Symptoms likely related to degree of dehydration. Stress test from earlier this year is reviewed, negative for ischemia. Patient is instructed on oral rehydration, she will attempt to improve her diet. She will follow-up with her primary care physician regarding elevated sugars. - Lab Data Result diagrams: 12/11/17 15:10 12/11/17 15:10 Lab Results 12/11/17 12/11/17 12/11/17 Range/Units 15:10 15:10 15:10 WBC 6.4 (3.8-10.6) k/uL RBC 4.86 (3.80-5.40) m/uL Hgb 14.1 (11.4-16.0) gm/dL Hct 43.4 (34.0-46.0) % MCV 89.3 (80.0-100.0) fL MCH 29.0 (25.0-35.0) pg MCHC 32.4 (31.0-37.0) g/dL RDW 12.7 (11.5-15.5) % Plt Count 267 (150-450) k/uL Neutrophils % 61 % Lymphocytes % 28 % Monocytes % 6 % Eosinophils % 3 % Basophils % 0 % Neutrophils # 3.9 (1.3-7.7) k/uL Lymphocytes # 1.8 (1.0-4.8) k/uL Monocytes # 0.4 (0-1.0) k/uL Eosinophils # 0.2 (0-0.7) k/uL Basophils # 0.0 (0-0.2) k/uL PT (9.0-12.0) sec INR (<1.2) APTT (22.0-30.0) sec Sodium 138 (137-145) mmol/L Potassium 4.1 (3.5-5.1) mmol/L Chloride 107 (98-107) mmol/L Carbon Dioxide 24 (22-30) mmol/L Anion Gap 7 mmol/L BUN 11 (7-17) mg/dL Creatinine 0.54 (0.52-1.04) mg/dL Est GFR (CKD-EPI)AfAm >90 (>60 ml/min/1.73 sqM) Est GFR (CKD-EPI)NonAf >90 (>60 ml/min/1.73 sqM) Glucose 187 H (74-99) mg/dL Calcium 9.0 (8.4-10.2) mg/dL Magnesium 1.9 (1.6-2.3) mg/dL Total Bilirubin 0.4 (0.2-1.3) mg/dL AST 29 (14-36) U/L ALT 33 (9-52) U/L Alkaline Phosphatase 81 (38-126) U/L Total Creatine Kinase 55 (30-135) U/L CK-MB (CK-2) 0.9 (0.0-2.4) ng/mL CK-MB (CK-2) Rel Index 1.6 Troponin I <0.012 (0.000-0.034) ng/mL Total Protein 6.9 (6.3-8.2) g/dL Albumin 3.7 (3.5-5.0) g/dL Urine Color Urine Appearance (Clear) Urine pH (5.0-8.0) Ur Specific [place] (1.001-1.035) Urine Protein (Negative) Urine Glucose (UA) (Negative) Urine Ketones (Negative) Urine Blood (Negative) Urine Nitrite (Negative) Urine Bilirubin (Negative) Urine Urobilinogen (<2.0) mg/dL Ur Leukocyte Esterase (Negative) 12/11/17 12/11/17 Range/Units 15:10 15:10 WBC (3.8-10.6) k/uL RBC (3.80-5.40) m/uL Hgb (11.4-16.0) gm/dL Hct (34.0-46.0) % MCV (80.0-100.0) fL MCH (25.0-35.0) pg MCHC (31.0-37.0) g/dL RDW (11.5-15.5) % Plt Count (150-450) k/uL Neutrophils % % Lymphocytes % % Monocytes % % Eosinophils % % Basophils % % Neutrophils # (1.3-7.7) k/uL Lymphocytes # (1.0-4.8) k/uL Monocytes # (0-1.0) k/uL Eosinophils # (0-0.7) k/uL Basophils # (0-0.2) k/uL PT 9.8 (9.0-12.0) sec INR 1.0 (<1.2) APTT 24.2 (22.0-30.0) sec Sodium (137-145) mmol/L Potassium (3.5-5.1) mmol/L Chloride (98-107) mmol/L Carbon Dioxide (22-30) mmol/L Anion Gap mmol/L BUN (7-17) mg/dL Creatinine (0.52-1.04) mg/dL Est GFR (CKD-EPI)AfAm (>60 ml/min/1.73 sqM) Est GFR (CKD-EPI)NonAf (>60 ml/min/1.73 sqM) Glucose (74-99) mg/dL Calcium (8.4-10.2) mg/dL Magnesium (1.6-2.3) mg/dL Total Bilirubin (0.2-1.3) mg/dL AST (14-36) U/L ALT (9-52) U/L Alkaline Phosphatase (38-126) U/L Total Creatine Kinase (30-135) U/L CK-MB (CK-2) (0.0-2.4) ng/mL CK-MB (CK-2) Rel Index Troponin I (0.000-0.034) ng/mL Total Protein (6.3-8.2) g/dL Albumin (3.5-5.0) g/dL Urine Color Yellow Urine Appearance Clear (Clear) Urine pH 5.5 (5.0-8.0) Ur Specific [place] 1.022 (1.001-1.035) Urine Protein Negative (Negative) Urine Glucose (UA) 3+ H (Negative) Urine Ketones Negative (Negative) Urine Blood Negative (Negative) Urine Nitrite Negative (Negative) Urine Bilirubin Negative (Negative) Urine Urobilinogen <2.0 (<2.0) mg/dL Ur Leukocyte Esterase Negative (Negative) Disposition Clinical Impression: Dehydration, Palpitations, Diabetes Disposition: HOME SELF-CARE Condition: Good Instructions: Heart Palpitations (ED) Is patient prescribed a controlled substance at d/c from ED?: No Referrals: Dominga Deal MD [Primary Care Provider] - 1-2 days Time of Disposition: 16:28
--- NOTE | 2017-12-11 15:38 | XR ---
EXAMINATION TYPE: XR chest 2V DATE OF EXAM: 12/11/2017 COMPARISON: Chest x-ray September 17, 2017. HISTORY: Chest pain and palpitations started today. TECHNIQUE: Frontal and lateral views of the chest are obtained. FINDINGS: There is no focal air space opacity, pleural effusion, or pneumothorax seen. The cardiac silhouette size is within normal limits. The osseous structures are intact. Cholecystectomy clips a re redemonstrated. IMPRESSION: No acute cardiopulmonary process. No significant change from prior.
[2017-12-11 15:46] LABS: ALT 33 U/L (9-52); AST 29 U/L (14-36); Albumin 3.7 g/dL (3.5-5.0); Alkaline Phosphatase 81 U/L (38-126); Anion Gap 7 mmol/L; Blood Urea Nitrogen 11 mg/dL (7-17); Carbon Dioxide 24 mmol/L (22-30); Chloride 107 mmol/L (98-107); Glucose 187 mg/dL (74-99); Magnesium 1.9 mg/dL (1.6-2.3); Potassium 4.1 mmol/L (3.5-5.1); Sodium 138 mmol/L (137-145); Total Bilirubin 0.4 mg/dL (0.2-1.3); Total Protein 6.9 g/dL (6.3-8.2)
[2017-12-11 15:50] LABS: Creatine Kinase 55 U/L (30-135)
[2017-12-11 15:53] LABS: Partial Thromboplastin Time 24.2 sec (22.0-30.0); Prothrombin Time 9.8 sec (9.0-12.0)
[2017-12-11 16:03] LABS: Creatine Kinase MB 0.9 ng/mL (0.0-2.4); Troponin I <0.012 ng/mL (0.000-0.034)
[2017-12-11 16:40] VITALS: BP 123/70; PULSE 59; RESP 18; TEMP 98
== END 2017-12-11 16:39 | disposition home or self-care (01) ==
LOC: EC 15:06
DX: E86.0 Dehydration (principal); E11.9 Type 2 diabetes mellitus without complications; R00.2 Palpitations; R42 Dizziness and giddiness; F41.9 Anxiety disorder, unspecified; F32.9 Major depressive disorder, single episode, unspecified; Z79.84 Long term (current) use of oral hypoglycemic drugs; Z79.899 Other long term (current) drug therapy; Z91.030 Bee allergy status; Z91.09 Other allergy status, other than to drugs and biological substances; Z88.8 Allergy status to other drugs, medicaments and biological substances
CPT/HCPCS: 36415; 71046; 80053; 81003; 82550; 82553; 83735; 84484; 85025; 85610; 85730; 93005; 96360; 99285

== ENCOUNTER 2018-05-24 16:13 | Observation (INO) | payer BC ==
[2018-05-24] MEDS ORDERED: ASPIRIN 81 MG PO STA (16:51)
[2018-05-24] MEDS ORDERED: SODIUM CHLORIDE 0.9% 1,000 ML IV STA (16:51)
--- NOTE | 2018-05-24 17:18 | ED ---
General Adult HPI - General Chief complaint: Chest Pain Stated complaint: sob/heavy chest Time Seen by Provider: 05/24/18 16:51 Source: patient, RN notes reviewed Mode of arrival: wheelchair Limitations: no limitations - History of Present Illness Initial comments: 48-year-old female with a past medical history of chest pain, pneumonia, thyroid disorder presents to the emergency department for a chief complaint of chest pressure times one day. Patient states she's had a pressure in the center of her chest since she woke up this morning. She states that the pressure does radiate to her left shoulder but that this often happens as she has had a breast reduction in the past. Patient denies any back pain. Patient states she has felt flutters in her chest for the past 1.5 weeks. She also felt short of breath for the past 3 days. She states this pressure and soreness of breath worsened when she is walking. Patient denies history of smoking. She does have a history of type 2 diabetes. No history of coronary artery disease. Patient's father did have a [place] in his 50s.Patient has no other complaints at this time including shortness of breath, chest pain, abdominal pain, nausea or vomiting, headache, or visual changes. - Related Data Home Medications Medication Instructions Recorded Confirmed RX: Levothyroxine Sodium 75 mcg PO DAILY 09/17/13 05/24/18 [Synthroid] RX: Citalopram Hydrobromide 20 mg PO HS 11/05/16 05/24/18 [CeleXA] RX: Glimepiride [Amaryl] 2 mg PO AC-BRKFST 04/27/17 05/24/18 ALPRAZolam [Xanax] 0.25 mg PO DAILY PRN 05/24/18 05/24/18 RX: Aspirin 81 mg PO DAILY 05/24/18 05/24/18 RX: metFORMIN HCL 500 mg PO HS 05/24/18 05/24/18 Previous Rx's Medication Instructions Recorded RX: Hydrocodone/Acetaminophen 1 tab PO Q6HR PRN #20 tablet 04/29/17 [[place] 7.5-325] Allergies Allergy/AdvReac Type Severity Reaction Status Date / Time bee venom protein (honey bee) Allergy Swelling Verified 05/24/18 17:27 prochlorperazine edisylate Allergy Rash/Hives Verified 05/24/18 17:27 [From Compazine] prochlorperazine maleate Allergy Rash/Hives Verified 05/24/18 17:27 [From Compazine] promethazine HCl AdvReac Confusion Verified 05/24/18 17:27 [From Phenergan] cats Allergy Rash/Hives Uncoded 05/24/18 16:26 Review of Systems ROS Statement: Those systems with pertinent positive or pertinent negative responses have been documented in the HPI. ROS Other: All systems not noted in ROS Statement are negative. Past Medical History Past Medical History: Chest Pain / Angina, Pneumonia, Thyroid Disorder Additional Past Medical History / Comment(s): "small brain bleed" 2008 not sure of cause, bronchitis,sinusitis,apr 2017 had stress echo/stress test pt stated normal, in past has some acid reflux History of Any Multi-Drug Resistant Organisms: None Reported Past Surgical History: Breast Surgery, Cholecystectomy, Hysterectomy, Orthopedic Surgery Additional Past Surgical History / Comment(s): breast reduction, partial hysterectomy-Still has overies, 4 knee surgeries, cosmetic dental procedures- veneers Past Anesthesia/Blood Transfusion Reactions: No Reported Reaction Past Psychological History: Anxiety, Depression Smoking Status: Never smoker Past Alcohol Use History: None Reported Past Drug Use History: None Reported - Past Family History Father Family Medical History: Diabetes Mellitus, Myocardial Infarction ([place]) Mother Family Medical History: Cancer, Thyroid Disorder Additional Family Medical History / Comment(s): lung CA General Exam Limitations: no limitations General appearance: alert, in no apparent distress Head exam: Present: atraumatic, normocephalic, normal inspection Eye exam: Present: normal appearance, PERRL, EOMI. Absent: scleral icterus, conjunctival injection, periorbital swelling ENT exam: Present: normal exam, mucous membranes moist Neck exam: Present: normal inspection, full ROM. Absent: tenderness, meningismus, lymphadenopathy Respiratory exam: Present: normal lung sounds bilaterally. Absent: respiratory distress, wheezes, rales, rhonchi, stridor Cardiovascular Exam: Present: regular rate, normal rhythm, normal heart sounds. Absent: systolic murmur, diastolic murmur, rubs, gallop, clicks GI/Abdominal exam: Present: soft, normal bowel sounds. Absent: distended, tenderness, guarding, rebound, rigid Extremities exam: Present: normal capillary refill (Capillary refill and radial pulse 2+ and equal in upper extremities bilaterally) Neurological exam: Present: alert, oriented X3, CN II-XII intact Psychiatric exam: Present: normal affect, normal mood Course Vital Signs 05/24/18 05/24/18 05/24/18 16:23 17:15 18:56 Temperature 98.5 F Pulse Rate 65 80 Pulse Rate [ 67 [place] ] Respiratory 16 16 Rate Blood Pressure 133/92 120/85 O2 Sat by Pulse 95 96 Oximetry 05/24/18 20:13 Temperature Pulse Rate Pulse Rate [ [place] ] Respiratory Rate Blood Pressure 114/73 O2 Sat by Pulse 98 Oximetry EKG Findings - EKG Comments: EKG Findings:: Normal sinus rhythm, ventricular rate 78, [place] Interval 158, QTC 417 Medical Decision Making - Medical Decision Making 48-year-old female presents to the emergency department for a chief complaint of chest pain and pressure. Patient has had palpitations for the last week but has had pressure starting today. Patient does have history of diabetes or family history of a father with [place] in his 50s. Exam is unremarkable. CBC CMP unremarkable. Patient is of a glucose of 192, does have known diabetes. Troponin is negative. Urine negative. Chest x-ray does not show any acute cardiopulmonary process. However given patient's age as well as chest pressure and shortness of breath worse on exertion patient will be admitted for further cardiac evaluation and trending troponins. - Lab Data Result diagrams: 05/24/18 16:50 05/24/18 16:50 Lab Results 05/24/18 05/24/18 05/24/18 Range/Units 16:50 16:50 16:50 WBC 7.5 (3.8-10.6) k/uL RBC 4.84 (3.80-5.40) m/uL Hgb 14.2 (11.4-16.0) gm/dL Hct 43.0 (34.0-46.0) % MCV 88.8 (80.0-100.0) fL MCH 29.4 (25.0-35.0) pg MCHC 33.1 (31.0-37.0) g/dL RDW 13.7 (11.5-15.5) % Plt Count 291 (150-450) k/uL Neutrophils % 68 % Lymphocytes % 22 % Monocytes % 4 % Eosinophils % 3 % Basophils % 1 % Neutrophils # 5.1 (1.3-7.7) k/uL Lymphocytes # 1.7 (1.0-4.8) k/uL Monocytes # 0.3 (0-1.0) k/uL Eosinophils # 0.2 (0-0.7) k/uL Basophils # 0.1 (0-0.2) k/uL PT (9.0-12.0) sec INR (<1.2) APTT (22.0-30.0) sec D-Dimer (<0.60) mg/L FEU Sodium 137 (137-145) mmol/L Potassium 4.4 (3.5-5.1) mmol/L Chloride 104 (98-107) mmol/L Carbon Dioxide 26 (22-30) mmol/L Anion Gap 7 mmol/L BUN 13 (7-17) mg/dL Creatinine 0.53 (0.52-1.04) mg/dL Est GFR (CKD-EPI)AfAm >90 (>60 ml/min/1.73 sqM) Est GFR (CKD-EPI)NonAf >90 (>60 ml/min/1.73 sqM) Glucose 192 H (74-99) mg/dL Calcium 9.5 (8.4-10.2) mg/dL Magnesium 1.8 (1.6-2.3) mg/dL Total Bilirubin 0.6 (0.2-1.3) mg/dL AST 44 H (14-36) U/L ALT 51 (9-52) U/L Alkaline Phosphatase 81 (38-126) U/L Troponin I (0.000-0.034) ng/mL NT-Pro-B Natriuret Pep pg/mL Total Protein 7.0 (6.3-8.2) g/dL Albumin 3.9 (3.5-5.0) g/dL Amylase 56 (30-110) U/L Lipase 100 (23-300) U/L Urine Color Light Yellow Urine Appearance Clear (Clear) Urine pH 5.5 (5.0-8.0) Ur Specific [place] 1.013 (1.001-1.035) Urine Protein Negative (Negative) Urine Glucose (UA) Negative (Negative) Urine Ketones Negative (Negative) Urine Blood Negative (Negative) Urine Nitrite Negative (Negative) Urine Bilirubin Negative (Negative) Urine Urobilinogen <2.0 (<2.0) mg/dL Ur Leukocyte Esterase Negative (Negative) 05/24/18 05/24/18 05/24/18 Range/Units 16:50 16:50 16:50 WBC (3.8-10.6) k/uL RBC (3.80-5.40) m/uL Hgb (11.4-16.0) gm/dL Hct (34.0-46.0) % MCV (80.0-100.0) fL MCH (25.0-35.0) pg MCHC (31.0-37.0) g/dL RDW (11.5-15.5) % Plt Count (150-450) k/uL Neutrophils % % Lymphocytes % % Monocytes % % Eosinophils % % Basophils % % Neutrophils # (1.3-7.7) k/uL Lymphocytes # (1.0-4.8) k/uL Monocytes # (0-1.0) k/uL Eosinophils # (0-0.7) k/uL Basophils # (0-0.2) k/uL PT 9.9 (9.0-12.0) sec INR 0.9 (<1.2) APTT 25.5 (22.0-30.0) sec D-Dimer 0.32 (<0.60) mg/L FEU Sodium (137-145) mmol/L Potassium (3.5-5.1) mmol/L Chloride (98-107) mmol/L Carbon Dioxide (22-30) mmol/L Anion Gap mmol/L BUN (7-17) mg/dL Creatinine (0.52-1.04) mg/dL Est GFR (CKD-EPI)AfAm (>60 ml/min/1.73 sqM) Est GFR (CKD-EPI)NonAf (>60 ml/min/1.73 sqM) Glucose (74-99) mg/dL Calcium (8.4-10.2) mg/dL Magnesium (1.6-2.3) mg/dL Total Bilirubin (0.2-1.3) mg/dL AST (14-36) U/L ALT (9-52) U/L Alkaline Phosphatase (38-126) U/L Troponin I <0.012 (0.000-0.034) ng/mL NT-Pro-B Natriuret Pep 33 pg/mL Total Protein (6.3-8.2) g/dL Albumin (3.5-5.0) g/dL Amylase (30-110) U/L Lipase (23-300) U/L Urine Color Urine Appearance (Clear) Urine pH (5.0-8.0) Ur Specific [place] (1.001-1.035) Urine Protein (Negative) Urine Glucose (UA) (Negative) Urine Ketones (Negative) Urine Blood (Negative) Urine Nitrite (Negative) Urine Bilirubin (Negative) Urine Urobilinogen (<2.0) mg/dL Ur Leukocyte Esterase (Negative) - EKG Data -: EKG Interpreted by Me (and Dr Hyde, compared to previous EKG) When compared to previous EKG there are: no significant change Disposition Clinical Impression: Chest pressure Disposition: ADMITTED IP TO THIS HOSP Condition: Fair Is patient prescribed a controlled substance at d/c from ED?: No Referrals: Dominga Deal MD [Primary Care Provider] - 1-2 days Time of Disposition: 20:44
[2018-05-24 17:27] LABS: Basophils # (A) 0.1 k/uL (0-0.2); Basophils % (A) 1 %; Eosinophils # (A) 0.2 k/uL (0-0.7); Eosinophils % (A) 3 %; HGB 14.2 gm/dL (11.4-16.0); Lymphocytes # (A) 1.7 k/uL (1.0-4.8); Lymphocytes % (A) 22 %; MCH 29.4 pg (25.0-35.0); MCHC 33.1 g/dL (31.0-37.0); MCV 88.8 fL (80.0-100.0); Mean Platelet Volume 7.6; Monocytes # (A) 0.3 k/uL (0-1.0); Monocytes % (A) 4 %; Neutrophils # (A) 5.1 k/uL (1.3-7.7); Neutrophils % (A) 68 %; Platelet Count 291 k/uL (150-450); RBC 4.84 m/uL (3.80-5.40); RDW 13.7 % (11.5-15.5); WBC 7.5 k/uL (3.8-10.6)
[2018-05-24 17:46] LABS: Appearance,Urine Clear (Clear); Bilirubin,Urine Negative (Negative); Blood,Urine Negative (Negative); Color,Urine Light Yellow; D-Dimer 0.32 mg/L FEU (<0.60); Glucose,Urine (UA) Negative (Negative); INR 0.9 (<1.2); Ketones,Urine Negative (Negative); Leukocyte Esterase,Urine Negative (Negative); Nitrite,Urine Negative (Negative); PH, Urine 5.5 (5.0-8.0); Partial Thromboplastin Time 25.5 sec (22.0-30.0); Protein,Urine Negative (Negative); Prothrombin Time 9.9 sec (9.0-12.0); Specific Gravity,Urine 1.013 (1.001-1.035); Urobilinogen,Urine <2.0 mg/dL (<2.0)
[2018-05-24 17:58] LABS: ALT 51 U/L (9-52); AST 44 U/L (14-36); Albumin 3.9 g/dL (3.5-5.0); Alkaline Phosphatase 81 U/L (38-126); Amylase 56 U/L (30-110); Anion Gap 7 mmol/L; Blood Urea Nitrogen 13 mg/dL (7-17); Calcium 9.5 mg/dL (8.4-10.2); Carbon Dioxide 26 mmol/L (22-30); Chloride 104 mmol/L (98-107); Glucose 192 mg/dL (74-99); Lipase 100 U/L (23-300); Magnesium 1.8 mg/dL (1.6-2.3); Potassium 4.4 mmol/L (3.5-5.1); Sodium 137 mmol/L (137-145); Total Bilirubin 0.6 mg/dL (0.2-1.3)
--- NOTE | 2018-05-24 18:18 | XR ---
EXAMINATION TYPE: XR chest 2V DATE OF EXAM: 05/24/2018 COMPARISON: 12/11/2017 HISTORY: 48-year-old female with chest pain and shortness of breath TECHNIQUE: PA and lateral views FINDINGS: Heart normal size. Aorta and pulmonary vasculature within normal limits. [place] atelectasis/scarring at the left base. No consolidation or pleural effusion seen. IMPRESSION: Chronic changes without acute cardiopulmonary process.
[2018-05-24] MEDS ORDERED: MORPHINE SULFATE 4 MG/ML SYRINGE IVP STA (18:46)
[2018-05-24] MEDS ORDERED: NITROGLYCERIN SL TABS 0.4 MG TAB SUBLINGUAL PRN (20:40)
[2018-05-24 21:58] LABS: Glucose,Whole Blood 164 mg/dL (75-99)
[2018-05-24] MEDS ORDERED: ALPRAZolam 0.25 MG TAB PO PRN (22:43)
[2018-05-24] MEDS: CITALOPRAM HYDROBROMIDE 20 MG TAB PO SCH (22:59)
[2018-05-24] MEDS: HYDROcodone/APAP 7.5-325MG 1 EACH TAB PO PRN (23:00)
[2018-05-25 03:31] LABS: Cholesterol 151 mg/dL (<200); HDL Cholesterol 36 mg/dL (40-60); LDL Cholesterol,Calculated 86 mg/dL (0-99); Triglycerides 144 mg/dL (<150)
[2018-05-25] MEDS: HYDROcodone/APAP 7.5-325MG 1 EACH TAB PO PRN ×3 (04:34→18:14)
[2018-05-25] MEDS: LEVOTHYROXINE 75 MCG TAB PO SCH (04:36)
[2018-05-25 06:49] LABS: Glucose,Whole Blood 139 mg/dL (75-99)
[2018-05-25] MEDS: INSULIN ASPART (NovoLOG) 100 UNIT/ML VIAL SQ SCH ×3 (08:15→16:54)
[2018-05-25] MEDS ORDERED: ASPIRIN 325 MG TAB PO SCH (09:00)
--- NOTE | 2018-05-25 12:07 | P.CRDCN ---
History of Present Illness History of present illness: This is a pleasant 48-year-old female past medical history significant for diabetes mellitus, hypothyroidism and morbid obesity. She denies history of coronary artery disease, hypertension or dylipisemia. She does not follow regularly with a employment services director for any reason. We have been asked to see her in consultation for chest pain. She states starting a little over a week ago while she was at a meeting for work she started feeling a fluttering in her chest described as an irregular rapid flutter. She then started feeling flushed in her neck and face associated with some shortness of breath, nausea and light headed feeling. She went up to lay down and the symptoms subsided. Again later that evening she had a similar type event. There was no actual syncope or loss of consciousness. EKG reveals sinus mechanism with sinus arrhythmia and left anterior fascicular block. Chest x-ray is negative for acute cardiopulmonary process. Laboratory data reviewed, WBC 7.5, hemoglobin 14.2, platelets 291, d-dimer 0.32, sodium 137, potassium 4.4, creatinine 0.53, magnesium 1.8, cardiac enzymes negative 3, TSH 3.05. Lipid profile reveals LDL 86 and HDL 36. Current cardiac medications include aspirin 81 mg daily. Most recent stress test in August 2017 with a stress echocardiogram which revealed poor exercise tolerance with no evidence of stress-induced ischemia. Most recent echocardiogram obtained August 2017 revealed normal left ventricular systolic function. At the time of my exam: CONSTITUTIONAL: Denies fever. Denies chills. EYES: Denies blurred vision. Denies vision changes. Denies eye pain. EARS, NOSE, MOUTH & THROAT: Denies headache. Denies sore throat. Denies ear rosangela n. CARDIOVASCULAR: Denies chest pain. Denies shortness of breath. Denies orthopnea. Denies PND. Denies palpitations. RESPIRATORY: Denies cough. GASTROINTESTINAL: Denies abdominal pain. Denies diarrhea. Denies constipation. Denies nausea. Denies vomiting. MUSCULOSKELETAL: Denies myalgias. INTEGUMENTARY: Denies pruitis. Denies rash. NEUROLOGIC: Denies numbness. Denies tingling. Denies weakness. PSYCHIATRIC: Denies anxiety. Denies depression. ENDOCRINE: Denies fatigue. Denies weight change. Denies polydipsia. Denies polyurina. GENITOURINARY: Denies burning, hematuria or urgency with micturation. HEMATOLOGIC: Denies history of anemia. Denies bleeding. Blood pressure 106/61 heart rate 69 afebrile maintaining oxygen saturation on room air GENERAL: This is a 48-year-old female in no apparent distress at the time of my examination. HEENT: Head is atraumatic, normocephalic. Pupils are equal, round. Sclerae anicteric. Conjunctivae are clear. Mucous membranes of the mouth are moist. Neck is supple. There is no jugular venous distention. No carotid bruit is heard. LUNGS: Clear to auscultation no wheezes, rales or rhonchi. No chest wall tenderness is noted on palpation or with deep breathing. HEART: Regular rate and rhythm without murmurs, rubs or gallops. S1 and S2 heard. ABDOMEN: Soft, nontender. Bowel sounds are heard. No organomegaly noted. EXTREMITIES: No evidence of peripheral edema and no calf tenderness noted. VASCULAR: Radial and dorsalis pedis pulses palpated, no evidence of clubbing. NEUROLOGIC: Patient is awake, alert and oriented x3. ASSESSMENT Chest pain, atypical for angina. An acute coronary event has been ruled out. Palpitations Diabetes mellitus Hypothyroidism Morbid obesity, BMI 40 PLAN An acute coronary event has been ruled out. Obtain 2-D echocardiogram and Doppler study to assess cardiac structure and function. Perform stress echocardiogram to assess for stress induced cardiac ischemia. Stress test is normal she is stable for discharge home with an event monitor for 15 days to assess for an arrhythmia. Follow up with Dr. Villalba in 4 weeks. Initiate on crestor 10 mg daily for cardio-protective purposes due to her diabetes mellitus. Lifestyle modifications recommended for weight loss. Thank you kindly for this consultation. Nurse Practitioner note has been reviewed, I agree with a documented findings and plan of care. Patient was seen and examined. Past Medical History Past Medical History: Chest Pain / Angina, Diabetes Mellitus, GERD/Reflux, Pneumonia, Thyroid Disorder Additional Past Medical History / Comment(s): "small brain bleed" 2008 not sure of cause, bronchitis,sinusitis,apr 2017 had stress echo/stress test pt stated normal. History of Any Multi-Drug Resistant Organisms: None Reported Past Surgical History: Breast Surgery, Cholecystectomy, Hysterectomy, Orthopedic Surgery Additional Past Surgical History / Comment(s): breast reduction, partial hysterectomy-Still has overies, 4 knee surgeries, cosmetic dental procedures- veneers Past Anesthesia/Blood Transfusion Reactions: No Reported Reaction Past Psychological History: Anxiety, Depression Additional Psychological History / Comment(s): Pt lives with significant other, daughter, and dog. Denies feelings of anxiety/depression at this time. Smoking Status: Never smoker Past Alcohol Use History: None Reported Past Drug Use History: None Reported - Past Family History Father Family Medical History: Diabetes Mellitus, Myocardial Infarction ([place]) Mother Family Medical History: Cancer, Myocardial Infarction ([place]), Thyroid Disorder Additional Family Medical History / Comment(s): lung CA Medications and Allergies Home Medications Medication Instructions Recorded Confirmed Type Levothyroxine Sodium [Synthroid] 75 mcg PO DAILY 09/17/13 05/24/18 History Citalopram Hydrobromide [CeleXA] 20 mg PO HS 11/05/16 05/24/18 History Glimepiride [Amaryl] 2 mg PO AC-BRKFST 04/27/17 05/24/18 History Hydrocodone/Acetaminophen [[place] 1 tab PO Q6HR PRN #20 tablet 04/29/17 05/24/18 Rx 7.5-325] ALPRAZolam [Xanax] 0.25 mg PO DAILY PRN 05/24/18 05/24/18 History Aspirin 81 mg PO DAILY 05/24/18 05/24/18 History metFORMIN HCL 500 mg PO HS 05/24/18 05/24/18 History Rosuvastatin [Crestor] 10 mg PO HS #90 tablet 05/25/18 Rx Allergies Allergy/AdvReac Type Severity Reaction Status Date / Time bee venom protein (honey bee) Allergy Swelling Verified 05/24/18 17:27 prochlorperazine edisylate Allergy Rash/Hives Verified 05/24/18 17:27 [From Compazine] prochlorperazine maleate Allergy Rash/Hives Verified 05/24/18 17:27 [From Compazine] promethazine HCl AdvReac Confusion Verified 05/24/18 17:27 [From Phenergan] cats Allergy Rash/Hives Uncoded 05/24/18 16:26 Physical Exam Vitals: Vital Signs Temp Pulse Pulse Pulse Resp BP BP 05/25/18 07:38 98 F 69 18 106/61 05/25/18 04:43 97.8 F 67 14 05/25/18 03:12 80 17 05/24/18 23:10 80 17 05/24/18 21:49 98.1 F 70 18 05/24/18 21:30 98.1 F 70 17 05/24/18 21:24 98.1 F 68 16 128/63 05/24/18 20:13 114/73 05/24/18 18:56 80 16 120/85 05/24/18 17:15 67 05/24/18 16:23 98.5 F 65 16 133/92 BP Pulse Ox 05/25/18 07:38 95 05/25/18 04:43 91/51 99 05/25/18 03:12 05/24/18 23:10 05/24/18 21:49 129/69 98 05/24/18 21:30 129/69 05/24/18 21:24 98 05/24/18 20:13 98 05/24/18 18:56 96 05/24/18 17:15 05/24/18 16:23 95 Intake and Output 05/24/18 05/25/18 05/25/18 22:59 06:59 14:59 Intake Total 1000 Balance 1000 Intake: Amount of Fluid Infused ( 1000 ml) Other: Voiding Method Toilet # Voids 1 1 Weight 102.965 kg Results 05/24/18 16:50 05/24/18 16:50 Cardiac Enzymes 05/24/18 05/24/18 05/24/18 Range/Units 16:50 16:50 22:46 AST 44 H (14-36) U/L Troponin I <0.012 <0.012 (0.000-0.034) ng/mL 05/25/18 Range/Units 04:27 AST (14-36) U/L Troponin I <0.012 (0.000-0.034) ng/mL Coagulation 05/24/18 Range/Units 16:50 PT 9.9 (9.0-12.0) sec APTT 25.5 (22.0-30.0) sec Lipids 05/24/18 Range/Units 16:50 Triglycerides 144 (<150) mg/dL Cholesterol 151 (<200) mg/dL HDL Cholesterol 36 L (40-60) mg/dL CBC 05/24/18 Range/Units 16:50 WBC 7.5 (3.8-10.6) k/uL RBC 4.84 (3.80-5.40) m/uL Hgb 14.2 (11.4-16.0) gm/dL Hct 43.0 (34.0-46.0) % Plt Count 291 (150-450) k/uL Comprehensive Metabolic Panel 05/24/18 Range/Units 16:50 Sodium 137 (137-145) mmol/L Potassium 4.4 (3.5-5.1) mmol/L Chloride 104 (98-107) mmol/L Carbon Dioxide 26 (22-30) mmol/L BUN 13 (7-17) mg/dL Creatinine 0.53 (0.52-1.04) mg/dL Glucose 192 H (74-99) mg/dL Calcium 9.5 (8.4-10.2) mg/dL AST 44 H (14-36) U/L ALT 51 (9-52) U/L Alkaline Phosphatase 81 (38-126) U/L Total Protein 7.0 (6.3-8.2) g/dL Albumin 3.9 (3.5-5.0) g/dL Current Medications Generic Name Dose Route Start Last Admin Trade Name Freq PRN Reason Stop Dose Admin Hydrocodone Bitart/Acetaminophen 1 each 05/24/18 22:43 05/25/18 04:34 [place] 7.5-325 PO 1 each Q6HR PRN Administration Pain Alprazolam 0.25 mg 05/24/18 22:43 05/24/18 22:59 Xanax PO 0.25 mg DAILY PRN Administration Anxiety Aspirin 325 mg 05/25/18 09:00 Aspirin PO DAILY [facility] Citalopram Hydrobromide 20 mg 05/24/18 22:45 05/24/18 22:59 Celexa PO 20 mg HS DAMIAN Administration Insulin Aspart 0 unit 05/25/18 07:30 Novolog SQ ACHS [facility] Protocol Levothyroxine Sodium 75 mcg 05/25/18 06:30 05/25/18 04:36 Synthroid PO 75 mcg DAILY@0630 DAMIAN Administration Nitroglycerin 0.4 mg 05/24/18 20:40 Nitrostat SUBLINGUAL Q5M PRN Chest Pain Intake and Output 05/24/18 05/25/18 05/25/18 22:59 06:59 14:59 Intake Total 1000 Balance 1000 Intake: Amount of Fluid Infused ( 1000 ml) Other: Voiding Method Toilet # Voids 1 1 Weight 102.965 kg 05/24/18 16:50 05/24/18 16:50
[2018-05-25 12:31] LABS: Glucose,Whole Blood 139 mg/dL (75-99)
--- NOTE | 2018-05-25 12:49 | ECHOS ---
STRESS ECHOCARDIOGRAM DATE OF SERVICE: 05/25/2018 INDICATIONS: Chest pain. MEDICATIONS: BASELINE HEART RATE: 71 BASELINE BLOOD PRESSURE: 148/95 MAXIMUM HEART RATE: 156 MAXIMUM BLOOD PRESSURE: 182/81 85% MPHR: 145 100% MPHR: 171 METS: 7.7 MAXIMUM STAGE REACHED: III TOTAL EXERCISE TIME: 6 minutes 30 seconds CLINICAL INFORMATION: Patient was exercised for a total period of 6 minutes and 30 seconds. The peak heart rate of 156 was achieved. Maximum blood pressure of 182/81 mmHg was noted. Resting EKG shows normal sinus rhythm with normal SC interval and QRS duration and normal ST-T waves. No ST-segment depression suggestive of ischemia was noted. No dysrhythmias are noted. The patient complained of mild heaviness in the chest during exercise. No dysrhythmias are noted. The baseline echocardiographic images reveal normal left ventricular chamber size with normal left ventricular systolic function. In the immediate postexercise period, there is normal increase in the wall thickness and contractility noted. FINAL IMPRESSION: 1. This stress echocardiographic study is negative for stress-induced ischemia. 2. Patient's exercise tolerance is average. 3. No dysrhythmias are noted. MMODL / IJN: [id number] /
[2018-05-25 16:35] LABS: Glucose,Whole Blood 182 mg/dL (75-99)
[2018-05-25] MEDS ORDERED: ALPRAZolam 0.5 MG TAB PO PRN (17:49)
[2018-05-25] MEDS: SODIUM CHLORIDE 0.9% 1,000 ML IV SCH (18:14)
[2018-05-25] MEDS: CITALOPRAM HYDROBROMIDE 20 MG TAB PO SCH (19:55)
[2018-05-25 20:50] LABS: Glucose,Whole Blood 136 mg/dL (75-99)
--- NOTE | 2018-05-25 21:35 | P.HPIM ---
History of Present Illness this is a pleasant 48 yo F wit pmh of DM, partial hysterectomy,GERD, hypothyroidism, who presents because she felt a heart flutter and palpitation about one week and a half ao at her work conference that is subsided when she lyed down, and happened again at the evening, , she also experiencing some nausea and abdominal pain and pain at her upper back , , her stomach pain is about 5/10 in severit that comes and goes over the last three weeks. no vomiting , no change in urine or bowel habits, no fever , no cough or dyspena , pt also is under alot of stress becasue her mom diet about two months ago , and she feels she needs to go the gym to lose some weight. pt has been evaluated by environmental laboratory technician and has negative stress test. Review of Systems CONSTITUTIONAL: No fever, no malaise, no fatigue. HEENT: No recent visual problems or hearing problems. Denied any sore throat. CARDIOVASCULAR: No orthopnea, PND, no palpitations, no syncope. PULMONARY: No shortness of breath, no cough, no hemoptysis. GASTROINTESTINAL: No diarrhea, no nausea, no vomiting, no abdominal pain. Normoactive bowel sounds. NEUROLOGICAL: No headaches, no weakness, no numbness. HEMATOLOGICAL: Denies any bleeding or petechiae. GENITOURINARY: Denies any burning micturition, frequency, or urgency. MUSCULOSKELETAL/RHEUMATOLOGICAL: Denies any joint pain, swelling, or any muscle pain. ENDOCRINE: Denies any polyuria or polydipsia. Past Medical History Past Medical History: Chest Pain / Angina, Diabetes Mellitus, GERD/Reflux, Pneumonia, Thyroid Disorder Additional Past Medical History / Comment(s): "small brain bleed" 2008 not sure of cause, bronchitis,sinusitis,apr 2017 had stress echo/stress test pt stated normal. History of Any Multi-Drug Resistant Organisms: None Reported Past Surgical History: Breast Surgery, Cholecystectomy, Hysterectomy, Orthopedic Surgery Additional Past Surgical History / Comment(s): breast reduction, partial hysterectomy-Still has overies, 4 knee surgeries, cosmetic dental procedures- veneers Past Anesthesia/Blood Transfusion Reactions: No Reported Reaction Past Psychological History: Anxiety, Depression Additional Psychological History / Comment(s): Pt lives with significant other, daughter, and dog. Denies feelings of anxiety/depression at this time. Smoking Status: Never smoker Past Alcohol Use History: None Reported Past Drug Use History: None Reported - Past Family History Father Family Medical History: Diabetes Mellitus, Myocardial Infarction ([place]) Mother Family Medical History: Cancer, Myocardial Infarction ([place]), Thyroid Disorder Additional Family Medical History / Comment(s): lung CA Medications and Allergies Home Medications Medication Instructions Recorded Confirmed Type RX: Levothyroxine Sodium 75 mcg PO DAILY 09/17/13 05/24/18 History [Synthroid] RX: Citalopram Hydrobromide 20 mg PO HS 11/05/16 05/24/18 History [CeleXA] RX: Glimepiride [Amaryl] 2 mg PO AC-BRKFST 04/27/17 05/24/18 History RX: Hydrocodone/Acetaminophen 1 tab PO Q6HR PRN #20 tablet 04/29/17 05/24/18 Rx [[place] 7.5-325] ALPRAZolam [Xanax] 0.25 mg PO DAILY PRN 05/24/18 05/24/18 History RX: Aspirin 81 mg PO DAILY 05/24/18 05/24/18 History RX: metFORMIN HCL 500 mg PO HS 05/24/18 05/24/18 History Rosuvastatin [Crestor] 10 mg PO HS #90 tablet 05/25/18 Rx Allergies Allergy/AdvReac Type Severity Reaction Status Date / Time bee venom protein (honey bee) Allergy Swelling Verified 05/24/18 17:27 prochlorperazine edisylate Allergy Rash/Hives Verified 05/24/18 17:27 [From Compazine] prochlorperazine maleate Allergy Rash/Hives Verified 05/24/18 17:27 [From Compazine] promethazine HCl AdvReac Confusion Verified 05/24/18 17:27 [From Phenergan] cats Allergy Rash/Hives Uncoded 05/24/18 16:26 Physical Exam Vitals: Vital Signs Temp Pulse Pulse Pulse Resp BP BP 05/25/18 20:00 98.6 F 75 16 131/81 05/25/18 15:44 98.7 F 78 18 101/67 05/25/18 12:30 97.2 F L 87 18 109/69 05/25/18 08:00 18 05/25/18 07:38 98 F 69 18 106/61 05/25/18 04:43 97.8 F 67 14 05/25/18 03:12 80 17 05/24/18 23:10 80 17 05/24/18 21:49 98.1 F 70 18 05/24/18 21:30 98.1 F 70 17 05/24/18 21:24 98.1 F 68 16 128/63 BP Pulse Ox 05/25/18 20:00 95 05/25/18 15:44 95 05/25/18 12:30 95 05/25/18 08:00 05/25/18 07:38 95 05/25/18 04:43 91/51 99 05/25/18 03:12 05/24/18 23:10 05/24/18 21:49 129/69 98 05/24/18 21:30 129/69 05/24/18 21:24 98 Intake and Output 05/25/18 05/25/18 05/25/18 06:59 14:59 22:59 Intake Total 700 240 Balance 700 240 Intake: Oral 700 240 Other: Voiding Method Toilet Toilet Toilet # Voids 1 Weight 102.965 kg GENERAL: The patient is alert and oriented x3, not in any acute distress. Well developed, well nourished. HEENT: Pupils are round and equally reacting to light. EOMI. No scleral icterus. No conjunctival pallor. Normocephalic, atraumatic. No pharyngeal erythema. No thyromegaly. CARDIOVASCULAR: S1 and S2 present. No murmurs, rubs, or gallops. PULMONARY: Chest is clear to auscultation, no wheezing or crackles. ABDOMEN: Soft, nontender, nondistended, normoactive bowel sounds. No palpable organomegaly. MUSCULOSKELETAL: No joint swelling or deformity. EXTREMITIES: No cyanosis, clubbing, or pedal edema. NEUROLOGICAL: Gross neurological examination did not reveal any focal deficits. SKIN: No rashes. Results CBC & Chem 7: 05/24/18 16:50 05/24/18 16:50 Labs: Abnormal Lab Results - Last 24 Hours (Table) 05/24/18 05/24/18 05/25/18 Range/Units 16:50 21:57 06:44 POC Glucose (mg/dL) 164 H 139 H (75-99) mg/dL HDL Cholesterol 36 L (40-60) mg/dL 05/25/18 05/25/18 05/25/18 Range/Units 12:30 16:34 20:48 POC Glucose (mg/dL) 139 H 182 H 136 H (75-99) mg/dL HDL Cholesterol (40-60) mg/dL Thrombosis Risk Factor Assmnt - Choose All That Apply Any of the Below Risk Factors Present?: No Other Risk Factors: No Other congenital or acquired thrombophilia - If yes, enter type in comment: No Thrombosis Risk Factor Assessment Level: Very Low Risk Assessment and Plan Assessment: palpitation epigastric abd pain and nausea diabetes mellitus hypothyroidism h/o GERD h/o hysterectomy Plan: this is a pleasant 48 yo F who presents with palpitation and epigastric abd pain , cardiology cleared pt for discharge, she has negative stress test, they recommend to monitor the heart rate upon discharge. c/w xanax, and iv fluid. Labs and medication were reviewed.. Continue same treatment. Continue with symptomatic treatment. Resume home medication. Monitor lytes and vitals. DVT and GI prophylaxis. Further recommendations of the clinical course of the patient DVT prophylaxis: Subcutaneous heparin GI Prophylaxis: Pepcid
[2018-05-25] MEDS ORDERED: MORPHINE SULFATE 4 MG/ML SYRINGE IVP PRN (23:19)
[2018-05-26] MEDS: INSULIN ASPART (NovoLOG) 100 UNIT/ML VIAL SQ SCH ×3 (01:31→11:50)
[2018-05-26] MEDS: HEPARIN SODIUM,PORCINE 5,000 UNIT/ML 1 ML VIAL SQ SCH ×2 (01:31→09:30)
[2018-05-26] MEDS: HYDROcodone/APAP 7.5-325MG 1 EACH TAB PO PRN ×3 (01:32→17:35)
[2018-05-26] MEDS: PANTOPRAZOLE 40 MG/10 ML VIAL IVP SCH ×2 (01:34→09:39)
[2018-05-26 06:39] LABS: Glucose,Whole Blood 119 mg/dL (75-99)
[2018-05-26] MEDS: SODIUM CHLORIDE 0.9% 1,000 ML IV SCH (07:42)
[2018-05-26 08:21] VITALS: RESP 18
[2018-05-26 08:30] LABS: Anion Gap 6 mmol/L; Blood Urea Nitrogen 13 mg/dL (7-17); Calcium 8.6 mg/dL (8.4-10.2); Carbon Dioxide 26 mmol/L (22-30); Chloride 106 mmol/L (98-107); Glucose 124 mg/dL (74-99); Magnesium 1.8 mg/dL (1.6-2.3); Potassium 4.4 mmol/L (3.5-5.1); Sodium 138 mmol/L (137-145)
[2018-05-26] MEDS: LEVOTHYROXINE 75 MCG TAB PO SCH (09:51)
[2018-05-26] MEDS ORDERED: ACETAMINOPHEN TAB 325 MG TAB PO PRN (10:45)
[2018-05-26 11:48] LABS: Glucose,Whole Blood 154 mg/dL (75-99)
[2018-05-26 12:11] VITALS: TEMP 98.4
[2018-05-26 16:45] LABS: Glucose,Whole Blood 186 mg/dL (75-99)
[2018-05-26 17:03] VITALS: BP 104/69
[2018-05-26 17:14] VITALS: PULSE 68
[2018-05-27] MEDS ORDERED: PANTOPRAZOLE 40 MG TABLET PO SCH (07:30)
--- NOTE | 2018-05-27 20:56 | P.DS ---
Providers Date of admission: 05/24/18 19:20 Attending physician: Neeta Medina Consults: 05/24/18 20:40 Consult Physician Urgent Consulting Provider: Joe Lazo Consult Reason/Comments: chest pain Do you want consulting provider notified?: Yes Primary care physician: Dominga Deal [place] [facility] Course: date of service: 05/27/18 Dx palpitation epigastric abd pain and nausea, improving. refer to GI outpt chroinc back pain on the left side , with point tenderness, mostly musculoskeletal mild chronic RLQ pain and tenderness, improving . refer to BEHAVIORAL HEALTH COUNSELOR as outpt diabetes mellitus hypothyroidism h/o GERD h/o hysterectomy hospital course this is a pleasant 48 yo F wit pmh of DM, partial hysterectomy,GERD, hypothyroidism, who presents because she felt a heart flutter and palpitation about one week and a half ao at her work conference that is subsided when she lyed down, and happened again at the evening, , she also experiencing some nausea and abdominal pain and pain at her upper back , , her stomach pain is about 5/10 in severity that comes and goes over the last three weeks. no vomiting , no change in urine or bowel habits, no fever , no cough or dyspena , pt also is under a lot of stress becasue her mom diet about two months ago , and she feels she needs to go the gym to lose some weight. pt has been evaluated by swimmer and has negative stress test. pt was cleared by cardiology team for discharge.she recieved small dose of xanax , she slept well and next day she felt much better. she has multiple pain , she has chronic back pain for more than one month associated with tenderenss around the left scapula, mostly musculoskeletal , that is not specific in quality , we check BP on both arms and there was no significant difference on both sides, also on CXR: no wide mediastinum as per radiology report. i doubt this is aortic aneurysm , as well pt was evaluated by swimmer and he cleared her for discharge. testing for AA will has more risk than benefits at this point also pt has spigastric pain , cardiology cleared pt for dc as above DDimer was negative. i think pt need to be evaluated by GI team which can be done as outpt and appointment was made for the pt with GI clinic , and she agrees after i explained to her . for her chronic RLQ pain is mild with no significant tenderness, i refer pt to BEHAVIORAL HEALTH COUNSELOR as outpt and she agrees to make her own appointment. pt feels improved overall and she wants to go home Pt was instructed about the problems and management plan and Pt verbalized understanding and acceptance Pt is found stable and can be discharged to the community but needs follow up as outpt. pt was found stable and can be discharged home however she needs follow up as outpt, she agrees with appointment i made for her with pcp , cardiology and GI office, she will make appointment with BEHAVIORAL HEALTH COUNSELOR Discharge exam Gen.: Patient alert awake and oriented X 3, NOT IN DISTRESS CVS: s1-s2, RRR, no murmur CHEST:bilateral CTA, no wheezing or crepitation -Abdomen: Soft, mild epigastric tenderness, no guarding , no rebound tenderness, no distention, positive bowel sounds. no RLQ tendernes Extremities: No leg edema or induration time spent : more than 35 min Patient Condition at Discharge: Fair Plan - Discharge Summary Discharge Rx Participant: Yes New Discharge Prescriptions: New Rosuvastatin [Crestor] 10 mg PO HS #90 tablet Pantoprazole [Protonix] 40 mg PO AC-BRKFST #30 tablet.dr Continue Levothyroxine Sodium [Synthroid] 75 mcg PO DAILY Citalopram Hydrobromide [CeleXA] 20 mg PO HS Glimepiride [Amaryl] 2 mg PO AC-BRKFST Hydrocodone/Acetaminophen [[place] 7.5-325] 1 tab PO Q6HR PRN #20 tablet PRN Reason: Pain Aspirin 81 mg PO DAILY ALPRAZolam [Xanax] 0.25 mg PO DAILY PRN PRN Reason: Anxiety metFORMIN HCL 500 mg PO HS Discharge Medication List Levothyroxine Sodium [Synthroid] 75 mcg PO DAILY 09/17/13 [History] Citalopram Hydrobromide [CeleXA] 20 mg PO HS 11/05/16 [History] Glimepiride [Amaryl] 2 mg PO AC-BRKFST 04/27/17 [History] Hydrocodone/Acetaminophen [[place] 7.5-325] 1 tab PO Q6HR PRN #20 tablet 04/29/17 [Rx] ALPRAZolam [Xanax] 0.25 mg PO DAILY PRN 05/24/18 [History] Aspirin 81 mg PO DAILY 05/24/18 [History] metFORMIN HCL 500 mg PO HS 05/24/18 [History] Rosuvastatin [Crestor] 10 mg PO HS #90 tablet 05/25/18 [Rx] Pantoprazole [Protonix] 40 mg PO AC-BRKFST #30 tablet. 05/26/18 [Rx] Follow up Appointment(s)/Referral(s): Dominga Deal MD [Primary Care Provider] - 05/28/18 8:30 am (appoinment made with Dr Valladares ) Migue Jensen, IDANIA [REFERRING] - 1 Week Lisette Mccauley MD [STAFF PHYSICIAN] - 06/04/18 3:00 pm (appointment made with Dr Butler) Ana Maria Villalba MD [STAFF PHYSICIAN] - 06/30/18 8:30 am (Appointment made with Dr Wilson) Activity/Diet/Wound Care/Special Instructions: cardiac diet activity is limited till you see your doctor Discharge Disposition: HOME SELF-CARE
== END 2018-05-26 17:54 | disposition home or self-care (01) ==
LOC: EC 16:13 → 1SOBS 19:20
PROVIDERS: ADMIT Hospitalist; ATTEND Hospitalist
DX: R07.89 Other chest pain (principal); R10.13 Epigastric pain; R10.31 Right lower quadrant pain; R11.0 Nausea; R00.2 Palpitations; E11.9 Type 2 diabetes mellitus without complications; K21.9 Gastro-esophageal reflux disease without esophagitis; E03.9 Hypothyroidism, unspecified; I44.4 Left anterior fascicular block; Z68.41 Body mass index [BMI] 40.0-44.9, adult; E66.01 Morbid (severe) obesity due to excess calories; F32.9 Major depressive disorder, single episode, unspecified; F41.9 Anxiety disorder, unspecified; M54.9 Dorsalgia, unspecified; G89.29 Other chronic pain; Z71.3 Dietary counseling and surveillance; Z79.84 Long term (current) use of oral hypoglycemic drugs; Z79.82 Long term (current) use of aspirin; Z79.890 Hormone replacement therapy; Z79.899 Other long term (current) drug therapy; Z90.711 Acquired absence of uterus with remaining cervical stump; Z91.030 Bee allergy status; Z88.8 Allergy status to other drugs, medicaments and biological substances; Z91.09 Other allergy status, other than to drugs and biological substances; Z90.49 Acquired absence of other specified parts of digestive tract; Z80.1 Family history of malignant neoplasm of trachea, bronchus and lung; Z82.49 Family history of ischemic heart disease and other diseases of the circulatory system; Z83.3 Family history of diabetes mellitus
CPT/HCPCS: 96361 ×3; 96375; 96374; 99285; 36415; 93005; 93270; 93271; 93351; 85379; 83880; 80061; 80053; 80048; 84443; 82150; 83690; 83735 ×2; 84484 ×2; 85025; 85610; 85730; 81003; 71046; G0378 ×3; J2270; C9113; Q9950

== ENCOUNTER → 2019-03-24 | Outpatient (CLI) | payer BC ==
--- NOTE | 2019-03-24 11:43 | CONS ---
CONSULTATION DATE OF SERVICE: 03/24/2019 A 49-year-old lady who has been evaluated [facility] the [facility] for loud snoring, awakenings from sleep, and restless leg symptoms. HISTORY OF PRESENT ILLNESS/SLEEP-WAKE EVALUATION: Patient's usual sleep schedule from 10 to 11 p.m. until around 6:45 a.m. She does have problem with falling asleep. Has TV set in bedroom. She usually sleeps on the side position or stomach, wakes up from sleep several times with possibly several episodes of nocturia at night. She wakes up with a dry mouth, episodes of palpitations, heartburn, and sweating. In the morning she wakes up tired, has sleepiness. may take one nap in afternoon if she is not working that day. Angie Sleepiness Scale significantly increased to 13. Showed progressive problem with concentration, episodes of depression, anxiety, and claustrophobia. PAST MEDICAL HISTORY: Positive for diabetes mellitus, hypothyroidism, depression, acid reflux, back problems, leg pain. PAST SURGICAL HISTORY: Several right knee surgeries, breast reduction, , cholecystectomy. MEDICATIONS: Glimepiride, levothyroxine, pantoprazole, citalopram, metformin, magnesium, B12, vitamin D3 supplement, Lisle, and Xanax, baby aspirin. SOCIAL HISTORY: Negative for smoking. Alcohol consumption occasional. FAMILY HISTORY: Heart problems, hyperlipidemia with concern for lung cancer in her Mom. Diabetes thyroid problems, during sleep and signs usage. REVIEW OF SYSTEMS: Awakenings from sleep, sleepiness during the day, episodes. PHYSICAL EXAM: lady without distress BP 120/75, HR 74, RR 16, height 5 feet and 4, weight 263.4, body mass index 43.4, temperature 97.8, oxygen saturation at room air 96% oropharynx simply showed position between soft palate and posterior pharyngeal wall. Some restriction of nasal breathing. Nose symmetric, possibly nasal septum deviation. Neck wide, 16-1/2 inches in circumference. ABDOMEN: Obese. HEENT: PERRLA, EOMI, evaluation of oropharynx showed tongue protrudes midline. NECK: Supple, no JVD. Thyroid is not palpable. LUNGS: Clear to percussion and to auscultation. Good air exchange. No wheezing or rhonchi. HEART: S1, S2 regular. No murmurs, gallops, or rubs. ABDOMEN: Soft and nontender. Bowel sounds are present. No organomegaly appreciated. EXTREMITIES: No clubbing or cyanosis. TEACHING ARTIST: Awake, alert, and oriented X3. Cranial nerves 2 to 7 intact. There is no fasciculation or atrophy. noted. No focal deficits observed. IMPRESSION: 1. Loud snoring, awakenings from sleep with occasional episodes of nocturia and dry mouth, restriction of nasal breathing; possibly nasal septum deviation, wide neck, sleepiness. Angie Sleepiness Scale is 13. Obstructive sleep apnea-hypopnea syndrome. 2. History of restless leg symptoms, possibly restless legs syndrome. 3. Obesity; body mass index 43.4. 4. Diabetes mellitus. 5. Hypothyroidism. 6. Acid reflux. 7. Depression. 8. History of back problems. 9. Possible nasal septum deviation. 10.Status post multiple right knee surgeries. 11.Status post breast reduction. 12.Status post . 13.Status post cholecystectomy. 14.Patient is on L[place] on a p.r.n. basis for treatment of pain. PLAN: 1. Home sleep apnea test with positive air pressure equipment and should use it every night for the whole night. 2. Losing weight. 3. Sleep hygiene with regular time in bed for at least 8 hours. 4. No driving if feeling any sleepiness. 5. I will see the patient for follow up visit to explain the results of the test, recommendations, check compliance with treatment and make any necessary adjustment related to mask fitting, pressure and humidification. Thank you very much for allowing me to participate in the management of your patient. Shin Alvaerz MD, PhD, FAASM Diplomat of [employer] [place] [employer] [facility] [place] Just take plan to 12 just take plan from my template on the position. #1 just put home sleep apnea test and the 1st step. Thank you very much for referring this patient for consultation sincerely 9. MMODL / IJN: [id number] /
== END | disposition home or self-care (01) ==
LOC: SLEEP 10:19
PROVIDERS: ATTEND Internal Medicine
DX: G47.33 Obstructive sleep apnea (adult) (pediatric) (principal); E66.9 Obesity, unspecified; E11.9 Type 2 diabetes mellitus without complications; E03.9 Hypothyroidism, unspecified; K21.9 Gastro-esophageal reflux disease without esophagitis; Z87.898 Personal history of other specified conditions; Z68.41 Body mass index [BMI] 40.0-44.9, adult; Z86.69 Personal history of other diseases of the nervous system and sense organs; Z98.890 Other specified postprocedural states; Z90.49 Acquired absence of other specified parts of digestive tract; Z79.891 Long term (current) use of opiate analgesic; Z79.84 Long term (current) use of oral hypoglycemic drugs; Z79.890 Hormone replacement therapy; Z79.82 Long term (current) use of aspirin; Z79.899 Other long term (current) drug therapy
CPT/HCPCS: 99211

== ENCOUNTER → 2019-07-21 | Outpatient (CLI) | payer BC ==
[2019-07-21 14:54] LABS: African American GFR (CKD) >90 (>60 ml/min/1.73 sqM); Blood Urea Nitrogen 12 mg/dL (7-17); Non-African American GFR(CKD) >90 (>60 ml/min/1.73 sqM)
--- NOTE | 2019-07-21 16:19 | CT ---
EXAMINATION TYPE: CT abdomen pelvis w con DATE OF EXAM: 07/21/2019 HISTORY: RLQ pain CT DLP: 2624.7mGycm Automated Exposure Control for Dose Reduction was Utilized. CONTRAST: CT scan of the abdomen and pelvis is performed with oral and with IV Contrast, patient injected with 100 mL of Isovue 300. COMPARISON: CT abdomen and pelvis April 28, 2017 and November 05, 2016. FINDINGS: LUNG BASES: No significant abnormality is appreciated. LIVER/GB: Liver remains diffusely low dense consistent with diffuse fatty infiltration. Cholecystecto my clips are redemonstrated. PANCREAS: No significant abnormality is seen. SPLEEN: No significant abnormality is seen. ADRENALS: No significant abnormality is seen. KIDNEYS: Symmetric cortical medullary uptake and excretion with simple appearing subcentimeter thin-w alled cysts scattered throughout the right kidney seen best on delayed phase images. No hydronephrosi s noted bilaterally. BOWEL: Oral contrast reaches level of the hepatic flexure. There is no suspicious small or large oneil l dilatation. Normal-appearing appendix is seen posteriorly from base of cecum extending inferiorly i nto the right upper pelvis. UTERUS/ADNEXA: Uterus suspected surgically absent or markedly atrophic in appearance. There are scatt ered pelvic phleboliths. Remnant ovaries noted axial image 76 are not enlarged. A few scattered diver ticula in the left and sigmoid colon without CT evidence for acute diverticulitis. LYMPH NODES: No greater than 1cm abdominal or pelvic lymph nodes are appreciated. OSSEOUS STRUCTURES: Partially sacralized left L5 segment redemonstrated. Some facet arthropathy lower lumbar spine. Mild to moderate axial joint space loss and mild acetabular spurring in both hips. OTHER: No significant additional abnormality is seen. IMPRESSION: No significant new or acute finding is seen to account for patient's clinical symptoms of right lower quadrant pain.
== END | disposition home or self-care (01) ==
LOC: RADCTMAIN 13:59
PROVIDERS: ATTEND Family Medicine
DX: R10.31 Right lower quadrant pain (principal); R10.11 Right upper quadrant pain
CPT/HCPCS: 82565; 84520; 74177; 36415; Q9967

== ENCOUNTER 2020-01-15 14:43 | Emergency (ER) | payer BC ==
[2020-01-15 14:54] VITALS: BP 122/86; PULSE 110; RESP 20; TEMP 97.2
[2020-01-15] MEDS ORDERED: LIDOCAINE 1% INJ 10MG/ML (20 ML MDV) SQ ONE (15:58)
[2020-01-15] MEDS ORDERED: traMADol 50 MG STARTER PACK 3 TAB BTL PO STA (16:12)
--- NOTE | 2020-01-15 16:19 | ED ---
General Adult HPI - General Chief complaint: Skin/Abscess/Foreign Body Stated complaint: leg abscess Time Seen by Provider: 01/15/20 15:35 Source: patient, family, RN notes reviewed Mode of arrival: ambulatory Limitations: no limitations - History of Present Illness Initial comments: patient is a pleasant 49-year-old female presenting to the emergency Department with right leg abscess. Patient did have 2 other areas of abscesses and was on Augmentin however those have improved. Last medication was 2 weeks ago. Patient the last few days has had a spot on her right posterior leg. Patient has squeeze pus out of it twice previously however seems to be growing. No fevers. Patient did see her doctor for this recently. Patient is not currently on antibiotics. - Related Data Home Medications Medication Instructions Recorded Confirmed Levothyroxine Sodium [Synthroid] 75 mcg PO DAILY 09/17/13 05/24/18 Citalopram Hydrobromide [CeleXA] 20 mg PO HS 11/05/16 05/24/18 Glimepiride [Amaryl] 2 mg PO AC-BRKFST 04/27/17 05/24/18 ALPRAZolam [Xanax] 0.25 mg PO DAILY PRN 05/24/18 05/24/18 Aspirin 81 mg PO DAILY 05/24/18 05/24/18 metFORMIN HCL 500 mg PO HS 05/24/18 05/24/18 Previous Rx's Medication Instructions Recorded Hydrocodone/Acetaminophen [[place] 1 tab PO Q6HR PRN #20 tablet 04/29/17 7.5-325] Rosuvastatin [Crestor] 10 mg PO HS #90 tablet 05/25/18 Pantoprazole [Protonix] 40 mg PO AC-BRKFST #30 tablet. 05/26/18 Sulfamethox-Tmp 800-160Mg [Bactrim 2 each PO Q12HR #40 tab 01/15/20 DS 800-160 mg] Allergies Allergy/AdvReac Type Severity Reaction Status Date / Time bee venom protein (honey bee) Allergy Swelling Verified 01/15/20 14:55 prochlorperazine edisylate Allergy Rash/Hives Verified 01/15/20 14:55 [From Compazine] prochlorperazine maleate Allergy Rash/Hives Verified 01/15/20 14:55 [From Compazine] promethazine HCl AdvReac Confusion Verified 01/15/20 14:55 [From Phenergan] cats Allergy Rash/Hives Uncoded 01/15/20 14:55 Review of Systems ROS Statement: Those systems with pertinent positive or pertinent negative responses have been documented in the HPI. ROS Other: All systems not noted in ROS Statement are negative. Constitutional: Denies: fever Eyes: Denies: eye pain ENT: Denies: ear pain Respiratory: Denies: cough Cardiovascular: Denies: chest pain Endocrine: Denies: fatigue Gastrointestinal: Denies: abdominal pain Genitourinary: Denies: urgency Musculoskeletal: Denies: back pain Skin: Reports: as per HPI, rash Past Medical History Past Medical History: Chest Pain / Angina, Diabetes Mellitus, GERD/Reflux, Pneumonia, Thyroid Disorder Additional Past Medical History / Comment(s): "small brain bleed" 2008 not sure of cause, bronchitis,sinusitis,apr 2017 had stress echo/stress test pt stated normal. History of Any Multi-Drug Resistant Organisms: None Reported Past Surgical History: Breast Surgery, Cholecystectomy, Hysterectomy, Orthopedic Surgery Additional Past Surgical History / Comment(s): breast reduction, partial hysterectomy-Still has overies, 4 knee surgeries, cosmetic dental procedures- veneers Past Anesthesia/Blood Transfusion Reactions: No Reported Reaction Past Psychological History: Anxiety, Depression Smoking Status: Never smoker Past Alcohol Use History: None Reported Past Drug Use History: None Reported - Past Family History Father Family Medical History: Diabetes Mellitus, Myocardial Infarction ([place]) Mother Family Medical History: Cancer, Myocardial Infarction ([place]), Thyroid Disorder Additional Family Medical History / Comment(s): lung CA General Exam Limitations: no limitations General appearance: alert, in no apparent distress Head exam: Present: normocephalic Eye exam: Present: normal appearance Neck exam: Present: normal inspection Respiratory exam: Present: normal lung sounds bilaterally Cardiovascular Exam: Present: regular rate, normal rhythm GI/Abdominal exam: Present: soft. Absent: tenderness Extremities exam: Present: other (right posterior upper thigh cellulitis/small abscess) Neurological exam: Present: alert Psychiatric exam: Present: normal affect, normal mood Skin exam: Present: other (right posterior upper thigh with small open area of abscess approximate one to 2 cm There is also surrounding erythema approximately 4 x 6 cm.) Course Vital Signs 01/15/20 14:51 Temperature 97.2 F L Pulse Rate 110 H Respiratory 20 Rate Blood Pressure 122/86 O2 Sat by Pulse 96 Oximetry Procedures - [place] Protocol (Time Out) Procedure Performed:: I&D Performing Provider: Octavio Dang Timeout Date: 01/15/20 Timeout Time: 16:00 Patient Identification (2 identifiers required): Chart, Verbal Site: right thigh Site Marked: Yes Site Verified With Patient/Guardian: Yes Final Confirmation: Procedure - Incision & Drainage Consent Obtained: verbal consent Site: lower extremity Size (cm): 2 Anesthetic Used: lidocaine 1% Amount (mLs): 3 I&D Cleaning Method: Betadine Scalpel Used: #11 I&D Drainage Obtained: Pus (mild amount of pus) Patient Tolerated Procedure: well, no complications Disposition Clinical Impression: Abscess Disposition: HOME SELF-CARE Condition: Stable Instructions (If sedation given, give patient instructions): Abscess (ED), Abscess Incision and Drainage (ED) Additional Instructions: please follow-up with primary care physician in the next day or 2 for recheck. Return for increased pain, increased swelling, bleeding, redness, worsening symptoms or any other concerns. Have primary care physician follow-up with culture results. Prescription for antibiotics and to your pharmacy, [facility] [address] Prescriptions: Sulfamethox-Tmp 800-160Mg [Bactrim DS 800-160 mg] 2 each PO Q12HR #40 tab Is patient prescribed a controlled substance at d/c from ED?: No Referrals: Dominga Deal MD [Primary Care Provider] - 1-2 days Time of Disposition: 16:18
== END 2020-01-15 16:40 | disposition home or self-care (01) ==
LOC: EC 14:43
DX: L02.415 Cutaneous abscess of right lower limb (principal); E07.9 Disorder of thyroid, unspecified; E11.9 Type 2 diabetes mellitus without complications; I20.9 Angina pectoris, unspecified; F41.9 Anxiety disorder, unspecified; F32.9 Major depressive disorder, single episode, unspecified; Z79.84 Long term (current) use of oral hypoglycemic drugs; Z79.890 Hormone replacement therapy; Z79.899 Other long term (current) drug therapy; Z79.82 Long term (current) use of aspirin; Z91.030 Bee allergy status; Z91.09 Other allergy status, other than to drugs and biological substances; Z88.8 Allergy status to other drugs, medicaments and biological substances
CPT/HCPCS: 87070; 87205; 99283; 10060; J2001; 87077; 87186

== ENCOUNTER 2020-01-22 20:16 | Emergency (ER) | payer BC ==
[2020-01-22 20:27] VITALS: BP 146/82; PULSE 122; RESP 18; TEMP 98.4
--- NOTE | 2020-01-22 21:20 | ED ---
Skin/Abscess/FB HPI - General Chief complaint: Skin/Abscess/Foreign Body Stated complaint: MRSA Time Seen by Provider: 01/22/20 20:24 Source: patient, family Mode of arrival: ambulatory Limitations: no limitations - History of Present Illness Initial comments: Patient is a 49-year-old female presenting to emergency Department for a recheck of an abscess on her right posterior upper leg. Patient states she was here one week ago and had an abscess incised and was started on Bactrim. Her wound culture came back positive for MRSA but bactrim does work. She's had no fever, no nausea or vomiting. She has been doing warm compresses to the area, the area still seems to be draining. Patient states she did have a follow-up with her PCP, Dr. Deal who recommended she continue with the Bactrim and if symptoms persist, go to the ER. She also has an appointment with the surgeon, Dr. Deal to have this area cleaned out next week. Patient has [place] as at home for pain. She has no further complaints at this time. - Related Data Home Medications Medication Instructions Recorded Confirmed Levothyroxine Sodium [Synthroid] 75 mcg PO DAILY 09/17/13 05/24/18 Citalopram Hydrobromide [CeleXA] 20 mg PO HS 11/05/16 05/24/18 Glimepiride [Amaryl] 2 mg PO AC-BRKFST 04/27/17 05/24/18 ALPRAZolam [Xanax] 0.25 mg PO DAILY PRN 05/24/18 05/24/18 Aspirin 81 mg PO DAILY 05/24/18 05/24/18 metFORMIN HCL 500 mg PO HS 05/24/18 05/24/18 Previous Rx's Medication Instructions Recorded Hydrocodone/Acetaminophen [[place] 1 tab PO Q6HR PRN #20 tablet 04/29/17 7.5-325] Rosuvastatin [Crestor] 10 mg PO HS #90 tablet 05/25/18 Pantoprazole [Protonix] 40 mg PO AC-BRKFST #30 tablet. 05/26/18 Sulfamethox-Tmp 800-160Mg [Bactrim 2 each PO Q12HR #40 tab 01/15/20 DS 800-160 mg] Allergies Allergy/AdvReac Type Severity Reaction Status Date / Time bee venom protein (honey bee) Allergy Swelling Verified 01/15/20 14:55 prochlorperazine edisylate Allergy Rash/Hives Verified 01/15/20 14:55 [From Compazine] prochlorperazine maleate Allergy Rash/Hives Verified 01/15/20 14:55 [From Compazine] promethazine HCl AdvReac Confusion Verified 01/15/20 14:55 [From Phenergan] cats Allergy Rash/Hives Uncoded 01/15/20 14:55 Review of Systems ROS Statement: Those systems with pertinent positive or pertinent negative responses have been documented in the HPI. ROS Other: All systems not noted in ROS Statement are negative. Past Medical History Past Medical History: Chest Pain / Angina, Diabetes Mellitus, GERD/Reflux, Pneumonia, Thyroid Disorder Additional Past Medical History / Comment(s): "small brain bleed" 2008 not sure of cause, bronchitis,sinusitis,apr 2017 had stress echo/stress test pt stated normal. History of Any Multi-Drug Resistant Organisms: MRSA Date of last positivie culture/infection: 01/15/20 MDRO Source:: Right Leg Past Surgical History: Breast Surgery, Cholecystectomy, Hysterectomy, Orthopedic Surgery Additional Past Surgical History / Comment(s): breast reduction, partial hysterectomy-Still has overies, 4 knee surgeries, cosmetic dental procedures- veneers Past Anesthesia/Blood Transfusion Reactions: No Reported Reaction Past Psychological History: Anxiety, Depression Smoking Status: Never smoker Past Alcohol Use History: None Reported Past Drug Use History: None Reported - Past Family History Father Family Medical History: Diabetes Mellitus, Myocardial Infarction ([place]) Mother Family Medical History: Cancer, Myocardial Infarction ([place]), Thyroid Disorder Additional Family Medical History / Comment(s): lung CA General Exam - General Exam Comments Initial Comments: GENERAL: Patient is well-developed and well-nourished. Patient is nontoxic and in no acute distress. HEAD: Atraumatic, normocephalic. EYES: Pupils equal round and reactive to light, extraocular movements intact, sclera anicteric, conjunctiva are normal. Eyelids were unremarkable. ENT: TMs normal, nares patent, oropharynx clear without exudates. Moist mucous membranes. NECK: Normal range of motion, supple without lymphadenopathy or JVD. LUNGS: Unlabored respirations. Breath sounds clear to auscultation bilaterally and equal. No wheezes rales or rhonchi. HEART: Regular rate and rhythm without murmurs, rubs or gallops. ABDOMEN: Soft, nontender, normoactive bowel sounds. No guarding, no rebound. No masses appreciated. : Deferred MUSCULOSKELETAL: Normal extremities with adequate strength and normal range of motion, no pitting or edema. No clubbing or cyanosis. NEUROLOGICAL: Patient is alert and oriented x 3. Motor and sensory are also intact. Normal speech, normal gait. PSYCH: Normal mood, normal affect. SKIN: Warm, Dry, normal turgor, no rashes. Patient has an abscess, approximately 1 cm in diameter, the posterior upper leg that is currently opening and draining yellow /bloody fluid. There is induration around the area, there is no si gnificant erythema or red streaking. Limitations: no limitations Course Vital Signs 01/22/20 20:22 Temperature 98.4 F Pulse Rate 122 H Respiratory 18 Rate Blood Pressure 146/82 O2 Sat by Pulse 97 Oximetry Medical Decision Making - Medical Decision Making Patient is a 49-year-old female here for recheck of an abscess on her right posterior upper leg, she is currently on Bactrim with positive MRSA wound culture. Patient's labs show a stable white count, CRP is only 15. I discussed with patient that her labs are stable, she is afebrile. She is to continue on the Bactrim and follow up with the surgeon as discussed next week. Patient is agreeable with this plan of care. She did continue with warm compresses as well. She is stable for discharge. Return parameters were discussed with the patient she verbalized understanding. - Lab Data Result diagrams: 01/22/20 21:04 01/22/20 21:00 Lab Results 01/22/20 01/22/20 Range/Units 21:00 21:04 WBC 5.2 (3.8-10.6) k/uL RBC 4.87 (3.80-5.40) m/uL Hgb 14.4 (11.4-16.0) gm/dL Hct 43.7 (34.0-46.0) % MCV 89.7 (80.0-100.0) fL MCH 29.6 (25.0-35.0) pg MCHC 33.1 (31.0-37.0) g/dL RDW 12.5 (11.5-15.5) % Plt Count 241 (150-450) k/uL MPV 6.9 Neutrophils % (Manual) 62 % Band Neuts % (Manual) 4 % Lymphocytes % (Manual) 30 % Monocytes % (Manual) 3 % Eosinophils % (Manual) 1 % Neutrophils # (Manual) 3.40 (1.3-7.7) k/uL Lymphocytes # (Manual) 1.56 (1.0-4.8) k/uL Monocytes # (Manual) 0.16 (0-1.0) k/uL Eosinophils # (Manual) 0.05 (0-0.7) k/uL Nucleated RBCs 0 (0-0) /100 WBC Manual Slide Review Performed Reactive Lymphocytes Present Sodium 133 L (137-145) mmol/L Potassium 4.6 (3.5-5.1) mmol/L Chloride 103 (98-107) mmol/L Carbon Dioxide 22 (22-30) mmol/L Anion Gap 8 mmol/L BUN 13 (7-17) mg/dL Creatinine 0.62 (0.52-1.04) mg/dL Est GFR (CKD-EPI)AfAm >90 (>60 ml/min/1.73 sqM) Est GFR (CKD-EPI)NonAf >90 (>60 ml/min/1.73 sqM) Glucose 210 H (74-99) mg/dL Calcium 9.3 (8.4-10.2) mg/dL Total Bilirubin 0.4 (0.2-1.3) mg/dL AST 69 H (14-36) U/L ALT 64 H (4-34) U/L Alkaline Phosphatase 83 (38-126) U/L C-Reactive Protein 15.8 H (<10.0) mg/L Total Protein 7.2 (6.3-8.2) g/dL Albumin 3.8 (3.5-5.0) g/dL Disposition Clinical Impression: Abscess Disposition: HOME SELF-CARE Condition: Stable Instructions (If sedation given, give patient instructions): Abscess (ED) Additional Instructions: Please return to the Emergency Department if symptoms worsen or any other concerns. Continue with already prescribed antibiotic, finish entire course. Follow up with surgeon next week Is patient prescribed a controlled substance at d/c from ED?: No Referrals: Dominga Deal MD [Primary Care Provider] - 1-2 days
[2020-01-22 21:42] LABS: HCT 43.7 % (34.0-46.0); HGB 14.4 gm/dL (11.4-16.0); MCH 29.6 pg (25.0-35.0); MCHC 33.1 g/dL (31.0-37.0); MCV 89.7 fL (80.0-100.0); Mean Platelet Volume 6.9; Platelet Count 241 k/uL (150-450); RBC 4.87 m/uL (3.80-5.40); RDW 12.5 % (11.5-15.5); WBC 5.2 k/uL (3.8-10.6)
[2020-01-22 21:44] LABS: ALT 64 U/L (4-34); AST 69 U/L (14-36); African American GFR (CKD) >90 (>60 ml/min/1.73 sqM); Albumin 3.8 g/dL (3.5-5.0); Alkaline Phosphatase 83 U/L (38-126); Anion Gap 8 mmol/L; Blood Urea Nitrogen 13 mg/dL (7-17); C Reactive Protein 15.8 mg/L (<10.0); Calcium 9.3 mg/dL (8.4-10.2); Carbon Dioxide 22 mmol/L (22-30); Chloride 103 mmol/L (98-107); Glucose 210 mg/dL (74-99); Non-African American GFR(CKD) >90 (>60 ml/min/1.73 sqM); Potassium 4.6 mmol/L (3.5-5.1); Sodium 133 mmol/L (137-145); Total Bilirubin 0.4 mg/dL (0.2-1.3); Total Protein 7.2 g/dL (6.3-8.2)
[2020-01-22] MEDS ORDERED: cefTRIAXone IN SWFI 1,000 MG/10 ML SYRINGE IVP STA (21:46)
[2020-01-22 22:52] LABS: Band Neutrophils % 4 %; Eosinophils # (M) 0.05 k/uL (0-0.7); Lymphocytes # (M) 1.56 k/uL (1.0-4.8); Monocytes # (M) 0.16 k/uL (0-1.0); Neutrophils % (M) 62 %; Nucleated Red Blood Cells 0 /100 WBC (0-0); Total Cells Counted 100
[2020-01-22 22:53] LABS: Reactive Lymphocytes Present
== END 2020-01-22 22:50 | disposition home or self-care (01) ==
LOC: EC 20:16
DX: L02.415 Cutaneous abscess of right lower limb (principal); E11.9 Type 2 diabetes mellitus without complications; E07.9 Disorder of thyroid, unspecified; I25.2 Old myocardial infarction; F41.9 Anxiety disorder, unspecified; F32.9 Major depressive disorder, single episode, unspecified; Z79.82 Long term (current) use of aspirin; Z79.84 Long term (current) use of oral hypoglycemic drugs; Z79.890 Hormone replacement therapy; Z79.899 Other long term (current) drug therapy; Z91.030 Bee allergy status; Z88.8 Allergy status to other drugs, medicaments and biological substances; Z91.048 Other nonmedicinal substance allergy status
CPT/HCPCS: 36415; 80053; 85025; 86140; 99283; 96374; J0696

== ENCOUNTER → 2020-10-12 | Outpatient (CLI) | payer BC ==
[2020-10-12 14:06] VITALS: BP 114/82; PULSE 104; TEMP 98; BMI 41.1
[2020-10-12 15:05] LABS: HCT 45.3 % (34.0-46.0); HGB 15.2 gm/dL (11.4-16.0); MCH 30.7 pg (25.0-35.0); MCHC 33.6 g/dL (31.0-37.0); MCV 91.4 fL (80.0-100.0); Mean Platelet Volume 7.4; Platelet Count 282 k/uL (150-450); RBC 4.95 m/uL (3.80-5.40); RDW 12.8 % (11.5-15.5); WBC 7.7 k/uL (3.8-10.6)
--- NOTE | 2020-10-12 15:45 | P.HPBAR ---
Bariatric H&P - History & Physicial H&P Date: 10/12/20 History & Physicial: Visit/CC: initial clinic visit Patient initial contact: Initial weight: Initial weight in pounds: Height: 5 ft 3 in Initial BMI: Last weight: Current weight: 105.233 kg Current weight in pounds: 232.00 Current BMI: 41.1 [place] body weight (based on NIH guidelines): 52.163 kg Excess body weight loss: The patient is a 50 year-old F who presents for Bariatric Assessment. The patient is a 50-year-old female here today for bariatric surgery assessment. Patient is interested in sleeve gastrectomy. Patient suffers from sleep apnea, type 2 diabetes, chronic back pain, reflux. No history of DVT or dysphagia in the past. No tobacco use. Patient states she had an upper endoscopy 3 or more years ago. No hiatal hernia was seen per patient. Patient's only abdominal surgeries laparoscopic cholecystectomy. Review of Systems The patient denies any acute changes in vision or hearing, no dysphagia or odynophagia, no chest pain or shortness of breath, no dysuria or hematuria, no headache, no runny nose, no rectal bleeding or melena, no unexplained weight loss Past Medical History Past Medical History: Chest Pain / Angina, Diabetes Mellitus, GERD/Reflux, Pneumonia, Thyroid Disorder Additional Past Medical History / Comment(s): "small brain bleed" 2008 not sure of cause, bronchitis,sinusitis,apr 2017 had stress echo/stress test pt stated normal. History of Any Multi-Drug Resistant Organisms: MRSA Year Discovered:: 01/15/20 MDRO Source:: Right Leg Past Surgical History: Breast Surgery, Cholecystectomy, Hysterectomy, Orthopedic Surgery Additional Past Surgical History / Comment(s): breast reduction, partial hysterectomy-Still has overies, 4 knee surgeries, cosmetic dental procedures- veneers Past Anesthesia/Blood Transfusion Reactions: No Reported Reaction Smoking Status: Never smoker - Past Family History Father Family Medical History: Diabetes Mellitus, Myocardial Infarction ([place]) Mother Family Medical History: Cancer, Myocardial Infarction ([place]), Thyroid Disorder Additional Family Medical History / Comment(s): lung CA Surgical - Exam Vital Signs Temp Pulse BP 98 F 104 H 114/82 10/12/20 13:58 10/12/20 13:58 10/12/20 13:58 Physical exam: General: Well-developed, well-nourished HEENT: Normocephalic, sclerae nonicteric Abdomen: Nontender, nondistended Extremities: No edema Neuro: Alert and oriented Results - Labs 10/12/20 14:09 Bariatric Assessment & Plan (1) Morbid obesity with BMI of 40.0-44.9, adult Narrative/Plan: 50-year-old female with morbid obesity BMI 41. Risks and benefits of sleeve gastrectomy and gastric bypass discussed in detail with the patient. Realistic expectations regarding degree of weight loss also discussed. Patient remains interested in sleeve gastrectomy. We'll schedule for repeat upper endoscopy in the near future. The risks of bleeding, infection, stenosis, stricture, leak, abscess, fistula formation, peritonitis, poor weight loss, reflux, vomiting, conversion to an open procedure, aborting sleeve gastrectomy, NC, PE, DVT, and were discussed. The patient understands and wishes to proceed. Status: Acute Bariatric Checklist Checklist: Plan: Checklist: EGD: 1. Hiatal hernia: 2. H. Pylori: HgbA1c: Vitamin D: Smoking: Never smoker Primary care physician referral: Dr Dominga Deal Psychiatry clearance: Cardiology clearance: Sleep study: Diet journal: VTE risk score: VTE risk level: Rehab needs at discharge:
[2020-10-13 01:23] LABS: Hemoglobin A1C 8.2 % (4.0-6.0)
[2020-10-13 14:33] LABS: African American GFR (CKD) 116.3 (60.0-200.0); Albumin 4.5 g/dL (3.80-4.90); Albumin/Globulin Ratio 1.41 (1.60-3.17); Anion Gap 13.7 mmol/L (4.00-12.00); BUN/Creat Ratio 14.29 Ratio (12.00-20.00); Calcium 9.5 mg/dL (8.7-10.3); Carbon Dioxide 20.3 mmol/L (21.6-31.8); Globulin 3.2 g/dL (1.6-3.3); Non-African American GFR(CKD) 100.3 (60.0-200.0); Total Bilirubin 0.6 mg/dL (0.2-1.2); Total Protein 7.7 g/dL (6.2-8.2)
[2020-10-13 16:11] LABS: Folate, Serum 18.2 ng/mL
== END ==
LOC: BARWHC3 12:55
PROVIDERS: ATTEND Surgery
DX: E66.01 Morbid (severe) obesity due to excess calories (principal); Z68.41 Body mass index [BMI] 40.0-44.9, adult; E11.9 Type 2 diabetes mellitus without complications; Z88.8 Allergy status to other drugs, medicaments and biological substances; Z91.030 Bee allergy status; Z91.09 Other allergy status, other than to drugs and biological substances
CPT/HCPCS: 80053; 80323; 82306; 82607; 82746; 83036; 83540; 84425; 85027; 93005; 99211

== ENCOUNTER 2020-11-14 10:30 | Day surgery (SDC) | payer BC ==
[2020-11-13 10:46] VITALS: BMI 40.7
[~2020-11-14 10:30] MED LIST: LACTATED RINGERS 1,000 ML IV SCH; LIDOCAINE 1% (10MG/ML) FOR IV START INTRADERMA PRN
[2020-11-14 10:56] VITALS: TEMP 97.6
[2020-11-14] MEDS ORDERED: ONDANSETRON 4 MG/2 ML VIAL ONE (11:01)
[2020-11-14] MEDS ORDERED: ONDANSETRON 4 MG/2 ML VIAL IVP ONE (11:10)
[2020-11-14 11:37] LABS: Glucose,Whole Blood 198 mg/dL (75-99)
[2020-11-14] MEDS ORDERED: MIDAZOLAM 2 MG/2 ML VIAL ONE (11:38)
[2020-11-14] MEDS ORDERED: PROPOFOL 10 MG/ML 20 ML VIAL IV ONE (11:38)
[2020-11-14] MEDS ORDERED: fentaNYL (PF) 50 MCG/ML 2 ML AMP ONE (11:38)
--- NOTE | 2020-11-14 11:42 | P.GSHP ---
History of Present Illness H&P Date: 11/14/20 Chief Complaint: gerd Patient here today for upper endoscopy. Patient being evaluated for possible sleeve gastrectomy. Patient with history of chronic reflux. Symptoms well- controlled with antiacids. No dysphagia. Past Medical History Past Medical History: Chest Pain / Angina, Diabetes Mellitus, GERD/Reflux, Pneumonia, Thyroid Disorder Additional Past Medical History / Comment(s): "small brain bleed" 2008 not sure of cause, apr 2017 had stress echo/stress test pt stated normal History of Any Multi-Drug Resistant Organisms: MRSA Date of last positivie culture/infection: 01/15/20 MDRO Source:: Right Leg Past Surgical History: Breast Surgery, Cholecystectomy, Hysterectomy, Orthopedic Surgery Additional Past Surgical History / Comment(s): breast reduction, partial hysterectomy-Still has ovaries, 4 knee surgeries, cosmetic dental procedures- veneers Past Anesthesia/Blood Transfusion Reactions: No Reported Reaction Past Psychological History: Anxiety, Depression Smoking Status: Never smoker Past Alcohol Use History: None Reported Past Drug Use History: None Reported - Past Family History Father Family Medical History: Diabetes Mellitus, Myocardial Infarction ([place]) Mother Family Medical History: Cancer, Myocardial Infarction ([place]), Thyroid Disorder Additional Family Medical History / Comment(s): lung CA Medications and Allergies Home Medications Medication Instructions Recorded Confirmed Type Levothyroxine Sodium [Synthroid] 75 mcg PO DAILY 09/17/13 11/14/20 History Citalopram Hydrobromide [CeleXA] 40 mg PO HS 11/05/16 11/13/20 History Glimepiride [Amaryl] 2 mg PO BID 04/27/17 11/13/20 History Hydrocodone/Acetaminophen [[place] 1 tab PO Q6HR PRN #20 tablet 04/29/17 11/14/20 Rx 7.5-325] ALPRAZolam [Xanax] 0.25 mg PO DAILY PRN 05/24/18 11/14/20 History metFORMIN HCL 500 mg PO HS 05/24/18 11/13/20 History Pantoprazole [Protonix] 40 mg PO HUDSON-JOSE A #30 tablet. 05/26/18 11/13/20 Rx Phentermine HCl [Adipex-P] 37.5 mg PO DAILY 10/12/20 11/13/20 History Ergocalciferol [Vitamin D2 (1250 50,000 unit PO WEEKLY 10/16/20 11/13/20 History Mcg = 65537 Iu)] Dulaglutide [Trulicity] 0.75 mg SQ Q7D 11/13/20 11/14/20 History Allergies Allergy/AdvReac Type Severity Reaction Status Date / Time bee venom protein (honey bee) Allergy Swelling Verified 11/14/20 10:47 prochlorperazine edisylate Allergy Rash/Hives Verified 11/14/20 10:47 [From Compazine] prochlorperazine maleate Allergy Rash/Hives Verified 11/14/20 10:47 [From Compazine] Sulfa (Sulfonamide Allergy Rash/Hives Verified 11/14/20 10:47 Antibiotics) promethazine HCl AdvReac Confusion Verified 11/14/20 10:47 [From Phenergan] cats Allergy Rash/Hives Uncoded 11/14/20 10:47 Surgical - Exam Vital Signs Temp Pulse Resp BP Pulse Ox 97.6 F 80 17 134/78 96 11/14/20 10:55 11/14/20 10:55 11/14/20 10:55 11/14/20 10:55 11/14/20 10:55 Physical exam: General: Well-developed, well-nourished HEENT: Normocephalic, sclerae nonicteric Abdomen: Nontender, nondistended Extremities: No edema Neuro: Alert and oriented Results - Labs Abnormal Lab Results - Last 24 Hours (Table) 11/14/20 Range/Units 11:35 POC Glucose (mg/dL) 198 H (75-99) mg/dL Assessment and Plan (1) GERD (gastroesophageal reflux disease) Narrative/Plan: Will proceed with upper endoscopy Current Visit: Yes Status: Acute Code(s): K21.9 - GASTRO-ESOPHAGEAL REFLUX DISEASE WITHOUT ESOPHAGITIS SNOMED Code(s): 667275897
--- NOTE | 2020-11-14 11:50 | P.PCN ---
Date of Procedure: 11/14/20 Procedure(s) Performed: Preoperative Dx: GERD, presurgical Postoperative Dx: Mild gastritis, small gastric polyp Procedure: EGD with Bx Anesthesia: Sedation Endoscopist: Dr. Deal Specimens: Antrum, gastric polyp Endoscopic Procedure: The patient was on the endoscopy table in the left decubitus position. The Olympus gastroscope was inserted into the oropharynx and passed under direct visualization to the region of the third portion of the duodenum. From that point the scope was slowly withdrawn inspecting all surfaces carefully. There were no neoplastic inflammatory or polypoid lesions throughout the duodenum. The pylorus was widely patent. The stomach was carefully inspected. There was mild gastritis present. The patient also had a few small polyps the largest was removed and measured only about 4-5 mm. A biopsy of the antrum took place to rule out H. pylori. Retroflexion revealed a normal hiatus. The esophagus was then carefully examined. There were no neoplastic inflammatory or polypoid lesions throughout the visualized esophagus. The patient was then taken to the recovery room in stable condition per anesthesia guidelines. Recommendations: Resume diet. Await biopsy results. Follow-up bariatric clinic.
[2020-11-14 12:02] VITALS: RESP 16
[2020-11-14 12:31] VITALS: BP 107/75; PULSE 70
== END 2020-11-14 12:56 | disposition home or self-care (01) ==
LOC: ORWHC2ENDO 10:30
PROVIDERS: ATTEND Surgery
DX: K21.9 Gastro-esophageal reflux disease without esophagitis (principal); K29.50 Unspecified chronic gastritis without bleeding; K21.00 Gastro-esophageal reflux disease with esophagitis, without bleeding; K31.7 Polyp of stomach and duodenum; E11.9 Type 2 diabetes mellitus without complications; Z79.84 Long term (current) use of oral hypoglycemic drugs; Z80.1 Family history of malignant neoplasm of trachea, bronchus and lung; Z82.49 Family history of ischemic heart disease and other diseases of the circulatory system; Z83.3 Family history of diabetes mellitus; Z83.49 Family history of other endocrine, nutritional and metabolic diseases; Z88.2 Allergy status to sulfonamides; Z88.8 Allergy status to other drugs, medicaments and biological substances; Z90.49 Acquired absence of other specified parts of digestive tract; E07.9 Disorder of thyroid, unspecified; Z79.899 Other long term (current) drug therapy; Z79.890 Hormone replacement therapy
CPT/HCPCS: 43239; 88305; J2250; J2405; J3010; J2704

== ENCOUNTER → 2020-11-27 | Outpatient (CLI) | payer BC ==
[2020-11-27 13:51] VITALS: BMI 40.0
== END ==
LOC: BARWHC3 09:05
PROVIDERS: ATTEND Surgery
DX: E66.01 Morbid (severe) obesity due to excess calories (principal); Z71.3 Dietary counseling and surveillance; Z68.41 Body mass index [BMI] 40.0-44.9, adult; Z91.030 Bee allergy status; Z88.2 Allergy status to sulfonamides; Z88.8 Allergy status to other drugs, medicaments and biological substances
CPT/HCPCS: 97804

== ENCOUNTER → 2020-12-05 | Outpatient (CLI) | payer BC ==
--- NOTE | 2020-12-05 14:09 | P.BASOAP ---
Subjective Progress Note Date: 12/05/20 Principal diagnosis: Morbid obesity Patient returns after recent upper endoscopy. Patient was found have mild gastritis and a small polyp. Biopsies negative. Patient remains interested in sleeve gastrectomy. The patient is a nonsmoker. Comorbidities include obstructive sleep apnea, diabetes, chronic back pain, GERD Objective - Exam Abdomen: Soft, nontender, nondistended Assessment/Plan (1) Morbid obesity with BMI of 40.0-44.9, adult Narrative/Plan: 50-year-old female with morbid obesity and associated coronary disease. Surgical consent form reviewed in detail with the associated risks and benefits. Patient does have acid reflux. She realizes there is a increased risk of postoperative esophagitis and reflux with the sleeve gastrectomy versus other bariatric options. Despite the patient would like to proceed with sleeve gastrectomy. The risks of bleeding, infection, stenosis, stricture, leak, abscess, fistula formation, peritonitis, poor weight loss, reflux, vomiting, conversion to an open procedure, aborting sleeve gastrectomy, [place], PE, DVT, and were discussed. The patient understands and wishes to proceed. Plan: Date: Initial Weight: Initial BMI: Current Weight: Current BMI: Type of Surgery: Total Volume in Band: Previous Volume: Volume Removed: Volume Added: Band Size:
[2020-12-05 14:28] VITALS: BP 115/76; PULSE 91; TEMP 98.6; BMI 39.8
== END ==
LOC: BARWHC3 13:37
PROVIDERS: ATTEND Surgery
DX: E66.01 Morbid (severe) obesity due to excess calories (principal); K21.9 Gastro-esophageal reflux disease without esophagitis; E11.9 Type 2 diabetes mellitus without complications; M54.9 Dorsalgia, unspecified; Z68.41 Body mass index [BMI] 40.0-44.9, adult; Z71.3 Dietary counseling and surveillance
CPT/HCPCS: 99211

== ENCOUNTER → 2021-01-24 | Outpatient (CLI) | payer BC ==
[2021-01-24 16:47] LABS: ALT 49 U/L (4-34); AST 42 U/L (14-36); African American GFR (CKD) >90 (>60 ml/min/1.73 sqM); Albumin 4.1 g/dL (3.5-5.0); Alkaline Phosphatase 73 U/L (38-126); Anion Gap 9 mmol/L; Blood Urea Nitrogen 19 mg/dL (7-17); Calcium 9.6 mg/dL (8.4-10.2); Carbon Dioxide 27 mmol/L (22-30); Chloride 102 mmol/L (98-107); Glucose 118 mg/dL (74-99); Non-African American GFR(CKD) >90 (>60 ml/min/1.73 sqM); Potassium 4.3 mmol/L (3.5-5.1); Sodium 138 mmol/L (137-145); Total Bilirubin 0.4 mg/dL (0.2-1.3); Total Protein 7.4 g/dL (6.3-8.2)
[2021-01-24 16:59] LABS: Basophils % (A) 1 %; Eosinophils # (A) 0.2 k/uL (0-0.7); Eosinophils % (A) 3 %; HCT 42.7 % (34.0-46.0); HGB 14.2 gm/dL (11.4-16.0); Lymphocytes % (A) 15 %; MCH 30.6 pg (25.0-35.0); MCHC 33.4 g/dL (31.0-37.0); MCV 91.5 fL (80.0-100.0); Monocytes # (A) 0.3 k/uL (0-1.0); Monocytes % (A) 5 %; Neutrophils # (A) 5.2 k/uL (1.3-7.7); Neutrophils % (A) 74 %; Platelet Count 306 k/uL (150-450); RBC 4.66 m/uL (3.80-5.40); RDW 12.5 % (11.5-15.5)
== END | disposition home or self-care (01) ==
LOC: LABPAT 15:24
PROVIDERS: ATTEND Surgery
DX: Z01.812 Encounter for preprocedural laboratory examination (principal)
CPT/HCPCS: 80053; 85025

== ENCOUNTER 2021-01-29 10:25 | Inpatient (IN) | payer BC ==
[~2021-01-29 10:25] MED LIST changes: +ENOXAPARIN 40 MG/0.4 ML SYRINGE SQ PRN; -LACTATED RINGERS 1,000 ML IV SCH; +MIDAZOLAM 2 MG/2 ML VIAL IV PRN
--- NOTE | 2021-01-29 12:22 | P.GSHP ---
History of Present Illness H&P Date: 01/29/21 Chief Complaint: Morbid obesity 50-year-old female here today for elective sleeve gastrectomy. Patient with history of sleep apnea, diabetes, chronic back pain, GERD. No tobacco use. Recent EGD showed gastritis and a small polyp. No changes to her previous H&P's. Past Medical History Past Medical History: Diabetes Mellitus, GERD/Reflux, Pneumonia, Sleep Apnea/CPAP/BIPAP, Thyroid Disorder Additional Past Medical History / Comment(s): "small brain bleed" 2008 not sure of cause, apr 2017 had stress echo/stress test pt stated normal, supposed to use CPAP but couldn't afford, chronic low back pain, left arm pain History of Any Multi-Drug Resistant Organisms: MRSA Date of last positivie culture/infection: 01/15/20 MDRO Source:: Right Leg Past Surgical History: Breast Surgery, Cholecystectomy, Hysterectomy, Orthopedic Surgery Additional Past Surgical History / Comment(s): breast reduction, partial hysterectomy-Still has ovaries, 4 right knee surgeries, EGD Past Anesthesia/Blood Transfusion Reactions: No Reported Reaction Smoking Status: Never smoker - Past Family History Father Family Medical History: Diabetes Mellitus, Myocardial Infarction ([place]) Mother Family Medical History: Cancer, Myocardial Infarction ([place]), Thyroid Disorder Additional Family Medical History / Comment(s): lung CA Medications and Allergies Home Medications Medication Instructions Recorded Confirmed Type Levothyroxine Sodium [Synthroid] 75 mcg PO DAILY 09/17/13 01/24/21 History Citalopram Hydrobromide [CeleXA] 40 mg PO HS 11/05/16 01/24/21 History Hydrocodone/Acetaminophen [[place] 1 tab PO Q6HR PRN #20 tablet 04/29/17 01/24/21 Rx 7.5-325] metFORMIN HCL 500 mg PO HS 05/24/18 01/24/21 History Pantoprazole [Protonix] 40 mg PO AC-BRKFST #30 tablet. 05/26/18 01/24/21 Rx Dulaglutide [Trulicity] 0.75 mg SQ Q7D 11/13/20 01/24/21 History Allergies Allergy/AdvReac Type Severity Reaction Status Date / Time bee venom protein (honey bee) Allergy Swelling Verified 01/24/21 11:47 prochlorperazine edisylate Allergy Rash/Hives Verified 01/24/21 11:47 [From Compazine] prochlorperazine maleate Allergy Rash/Hives Verified 01/24/21 11:47 [From Compazine] Sulfa (Sulfonamide Allergy Rash/Hives Verified 01/24/21 11:47 Antibiotics) promethazine HCl AdvReac Confusion Verified 01/24/21 11:47 [From Phenergan] cats Allergy Rash/Hives Uncoded 01/24/21 11:47 Surgical - Exam Vital Signs Temp Pulse Resp BP Pulse Ox 98.9 F 72 18 132/87 96 01/29/21 12:19 01/29/21 12:19 01/29/21 12:19 01/29/21 12:19 01/29/21 12:19 Physical exam: General: Well-developed, well-nourished HEENT: Normocephalic, sclerae nonicteric Abdomen: Nontender, nondistended Extremities: No edema Neuro: Alert and oriented Assessment and Plan (1) Morbid obesity with BMI of 40.0-44.9, adult Narrative/Plan: 50-year-old female here today for elective sleeve gastrectomy. We'll proceed with laparoscopic sleeve gastrectomy, possible open at this time. The risks of bleeding, infection, stenosis, stricture, leak, abscess, fistula formation, peritonitis, poor weight loss, reflux, vomiting, conversion to an open pro cedure, aborting sleeve gastrectomy, [place], PE, DVT, and were discussed. The patient understands and wishes to proceed. Current Visit: No Status: Acute Code(s): E66.01 - MORBID (SEVERE) OBESITY DUE TO EXCESS CALORIES; Z68.41 - BODY MASS INDEX [BMI] 40.0-44.9, ADULT SNOMED Code(s): 177537922
[2021-01-29 12:37] LABS: Glucose,Whole Blood 128 mg/dL (75-99)
[2021-01-29] MEDS: LACTATED RINGERS 1,000 ML IV SCH ×2 (12:38→12:57)
[2021-01-29] MEDS ORDERED: PANTOPRAZOLE 40 MG/10 ML VIAL IVP PRN (12:44)
[2021-01-29] MEDS: ONDANSETRON 4 MG/2 ML VIAL IVP ONE (12:47)
[2021-01-29] MEDS: DEXAMETHASONE SOD PHOSPHATE 4 MG/ML 1 ML VIAL IV ONE (12:47)
[2021-01-29] MEDS ORDERED: .fentaNYL (PF) 50 MCG/ML AMP ONE (12:53)
[2021-01-29] MEDS ORDERED: MIDAZOLAM 2 MG/2 ML VIAL ONE (12:53)
[2021-01-29] MEDS ORDERED: ePHEDrine 50 MG/ML 1 ML AMP ONE (12:53)
[2021-01-29] MEDS ORDERED: SUCCINYLCHOLINE CHLORIDE 100 MG/5 ML SYR IV ONE (12:53)
[2021-01-29] MEDS ORDERED: GLYCOPYRROLATE 0.2 MG/ML 2 ML VIAL ONE (12:53)
[2021-01-29] MEDS ORDERED: ROCURONIUM 10 MG/ML (5 ML VIAL) IV ONE (12:53)
[2021-01-29] MEDS ORDERED: NEOSTIGMINE 1 MG/ML 10 ML VIAL ONE (12:53)
[2021-01-29] MEDS ORDERED: KETAMINE 10 MG/ML 20 ML VIAL ONE (12:53)
[2021-01-29] MEDS ORDERED: PROPOFOL 10 MG/ML 20 ML VIAL IV ONE (12:53)
[2021-01-29] MEDS ORDERED: BUPIVACAIN-EPI 0.25%-1:200,000 30 ML VIAL SQ ONE ×2 (13:25)
[2021-01-29] MEDS ORDERED: METHYLENE BLUE 3 MG in DEXTROSE 5% IN WATER 500 ML IRRIGATION ONE ×2 (13:49)
[2021-01-29] MEDS ORDERED: LACTATED RINGERS 1,000 ML IV ONE ×2 (14:45→17:09)
[2021-01-29] MEDS ORDERED: HYOSCYAMINE ORAL DROPS 1.875 MG/15 ML BOTTLE PO PRN (14:50)
[2021-01-29] MEDS ORDERED: NALOXONE 0.4 MG/ML 1 ML VIAL IV PRN (14:50)
[2021-01-29] MEDS ORDERED: diphenhydrAMINE 50 MG/ML 1 ML VIAL IVP PRN (14:50)
--- NOTE | 2021-01-29 14:53 | P.OP ---
Date of Procedure: 01/29/21 Procedure(s) Performed: PREOPERATIVE DIAGNOSIS: Morbid obesity, sleep apnea, diabetes, chronic back pain, GERD POSTOPERATIVE DIAGNOSIS: Same PROCEDURE: Laparoscopic sleeve gastrectomy SURGEON: Toyin EBL: Minimal ANESTHESIA: General COMPLICATIONS: None OPERATIVE PROCEDURE: Patient was placed in the operating table in the supine position. She was placed under general anesthesia at that time. The abdomen was prepped and draped in sterile fashion after the patient was placed in lithotomy. A 5 mm optical trocar was used to enter the abdominal cavity in the left upper quadrant. Insufflation took place to 15 millimeters mercury. An additional right subxiphoid 5 mm trocar was then placed under direct visualization and then removed. 2 additional 5 mm trochars were placed in the right upper quadrant and left upper quadrant under direct visualization and a 15 mm trocar in the supraumbilical location. The liver was retracted using a medium Milo liver retractor through the right subxiphoid trocar site. The hiatus was inspected. The patient had no visible hiatal hernia At that point I moved to the mid aspect of the greater curvature the stomach. The short gastric vasculature was divided using a LigaSure device proximally. I then switched and divided the short gastrics distally to a 3-4 cm from the pylorus. The dissection took place up to the left diaphragmatic crura at that point. The posterior short gastrics were likewise divided using the LigaSure device. Once the stomach was fully mobilized the blunt tipped 40-Chilean bougie dilator was advanced into the stomach and advanced all the way to the prepyloric location. A black echelon 60 stapler with echelon Endopath staple line reinforcement was utilized and fired tangentially across the antrum taking care to avoid narrowing at the incisura angularis. Subsequent firings of the green echelon 60 stapler with echelon Endopath staple line reinforcement took place proximally staying on the outer edge of our dilator. Once we reached the most proximal portion of the stomach a single firing of the gold echelon [address] The oral gastric tube was reinserted. The stomach was insufflated with approximately 100 mL of methylene blue. No evidence of leak or obstruction was seen. Tisseel fibrin glue was used along the length of the staple line. The stomach remnant was removed from the 15 mm trocar site without difficulty. The fascia at the 15 more site was closed using interrupted 0 Vicryl sutures with the laparoscopic suture passer and [place] Jocelyn technique. The insufflation was evacuated. The skin at all 5 incisions were closed using 4-0 Monocryl sutures. Skin glue was then applied. DISPOSITION: Stable to recovery room
[2021-01-29] MEDS ORDERED: diphenhydrAMINE 50 MG/ML 1 ML VIAL IVP ONE (15:31)
[2021-01-29] MEDS: HYDROmorphone 0.5 MG/0.5 ML SYRINGE IVP PRN ×2 (15:44→16:25)
[2021-01-29 15:56] LABS: Glucose,Whole Blood 196 mg/dL (75-99)
[2021-01-29] MEDS: ALBUTEROL NEBULIZED 2.5 MG/3 ML INHALATION SCH ×2 (19:06→21:27)
[2021-01-29] MEDS: HYDROmorphone 1 MG/ML 1 ML SYRINGE IVP PRN (19:49)
[2021-01-29] MEDS: ACETAMINOPHEN IV (For NPO) 1,000 MG in EMPTY BAG 1 BAG IVPB SCH (21:20)
[2021-01-29 22:00] LABS: Glucose,Whole Blood 231 mg/dL (75-99)
[2021-01-29] MEDS: 0.9% NACL WITH KCL 20 MEQ/L 1,000 ML IV SCH (22:18)
[2021-01-30] MEDS: ONDANSETRON 4 MG/2 ML VIAL IVP PRN ×2 (00:07→09:39)
[2021-01-30] MEDS: ACETAMINOPHEN IV (For NPO) 1,000 MG in EMPTY BAG 1 BAG IVPB SCH ×4 (00:07→18:14)
[2021-01-30] MEDS: HYDROmorphone 1 MG/ML 1 ML SYRINGE IVP PRN ×4 (00:08→22:51)
[2021-01-30] MEDS: DEXAMETHASONE SOD PHOSPHATE 4 MG/ML 1 ML VIAL IV ONE (00:24)
[2021-01-30] MEDS: ONDANSETRON 4 MG/2 ML VIAL IVP ONE (00:25)
[2021-01-30] MEDS: 0.9% NACL WITH KCL 20 MEQ/L 1,000 ML IV SCH ×4 (00:28→17:23)
[2021-01-30] MEDS: ENOXAPARIN 40 MG/0.4 ML SYRINGE SQ SCH ×2 (02:32→12:56)
[2021-01-30 06:52] LABS: Glucose,Whole Blood 150 mg/dL (75-99)
[2021-01-30] MEDS: LACTATED RINGERS 1,000 ML IV SCH (07:10)
[2021-01-30] MEDS: ALBUTEROL NEBULIZED 2.5 MG/3 ML INHALATION SCH ×4 (08:11→20:04)
[2021-01-30] MEDS: PANTOPRAZOLE 40 MG/10 ML VIAL IV SCH (09:15)
[2021-01-30 09:19] LABS: Basophils # (A) 0.01 X 10*3/uL (0.00-0.10); Basophils % (A) 0.1 %; Eosinophils # (A) 0 X 10*3/uL (0.04-0.35); Eosinophils % (A) 0 %; HCT 42.2 % (37.2-46.3); HGB 13.5 g/dL (12.0-15.0); Lymphocytes # (A) 0.88 X 10*3/uL (0.90-5.00); Lymphocytes % (A) 6.9 %; MCH 29.7 pg (27.0-32.0); Mean Platelet Volume 10.6 fL (9.5-12.2); Monocytes # (A) 0.93 X 10*3/uL (0.20-1.00); Monocytes % (A) 7.3 %; Neutrophils # (A) 10.95 X 10*3/uL (1.80-7.70); Neutrophils % (A) 85.3 %; Platelet Count 377 X 10*3/uL (140-440); RBC 4.54 X 10*6/uL (4.10-5.20); RDW 12.7 % (11.5-14.5); WBC 12.82 X 10*3/uL (4.50-10.00)
[2021-01-30 09:54] LABS: African American GFR (CKD) 122.3 (60.0-200.0); Blood Urea Nitrogen 8.9 mg/dL (9.0-27.0); Calcium 9.1 mg/dL (8.7-10.3); Non-African American GFR(CKD) 105.5 (60.0-200.0); Phosphorus 3.7 mg/dL (2.4-5.1); Potassium 4.6 mmol/L (3.5-5.5)
--- NOTE | 2021-01-30 11:01 | P.PN ---
<Annmarie Rodarte - Last Filed: 01/30/21 10:57> Subjective Progress Note Date: 01/30/21 CHIEF COMPLAINT: Morbid obesity HISTORY OF PRESENT ILLNESS: Patient is postop day #1 status post laparoscopic sleeve gastrectomy. Patient is complaining of abdominal pain. She does feel gas pressure. Admits to nausea. Denies any vomiting. Denies any flatus. She has been up and ambulating. Afebrile. WBC elevated at 12.8. Patient did receive a dose of dexamethasone. Hgb 13.5 potassium 4.6 creatinine 0.6 magnesium 2.0 PHYSICAL EXAM: VITAL SIGNS: Reviewed. GENERAL: Well-developed in no acute distress. HEENT: No sclera icterus. Extraocular movements grossly intact. Moist buccal mucosa. Head is atraumatic, normocephalic. ABDOMEN: Soft. Nondistended. Incision sites clean dry and intact NEUROLOGIC: Alert and oriented. Cranial nerves II through XII grossly intact. ASSESSMENT: 1. Morbid obesity, sleep apnea, diabetes, chronic back pain, GERD status post laparoscopic sleeve gastrectomy PLAN: -Upper GI results pending -Keep patient nothing by mouth until upper GI has been reviewed -Add Toradol scheduled for pain -Ordered abdominal binder -Continue antiemetics as needed -Continue Mylicon drops -Encourage patient to ambulate and to use incentive spirometer -GI prophylaxis Protonix and DVT prophylaxis Lovenox [employer] note has been reviewed by physician. Signing provider agrees with the documented findings, assessment, and plan of care. Objective - Vital Signs Vital signs: Vital Signs Temp 98.3 F 01/30/21 07:53 Pulse 63 01/30/21 08:24 Resp 16 01/30/21 07:53 BP 125/75 01/30/21 07:53 Pulse Ox 93 L 01/30/21 08:11 Intake & Output 01/29/21 01/30/21 01/30/21 18:59 06:59 18:59 Intake Total 2050 1924 Output Total 900 400 Balance 2040 1025 -400 Weight 96 kg Intake: IV 2050 Intake, IV Titration 1924 Amount 0.9% NaCl with KCl 20 Meq 1725 /l 1,000 ml @ 100 mls/hr IV .Q10H [facility] Rx#: [id number] ACETAMINOPHEN IV (For NPO 200 ) 1,000 mg In Empty Bag 1 bag @ 400 mls/hr IVPB Q6H [facility] Rx#:[id number] Output: Urine 900 400 Estimated Blood Loss 10 Other: # Voids 4 # Bowel Movements 0 - Labs CBC & Chem 7: 01/30/21 05:24 01/30/21 05:24 Labs: Abnormal Lab Results - Last 24 Hours (Table) 01/29/21 01/29/21 01/29/21 Range/Units 12:36 15:54 21:40 WBC (4.50-10.00) X 10*3/uL Immature Gran # (0.00-0.04) X 10*3/uL Neutrophils # (1.80-7.70) X 10*3/uL Lymphocytes # (0.90-5.00) X 10*3/uL Eosinophils # (0.04-0.35) X 10*3/uL BUN (9.0-27.0) mg/dL POC Glucose (mg/dL) 128 H 196 H 231 H (75-99) mg/dL 01/30/21 01/30/21 01/30/21 Range/Units 05:24 05:24 06:51 WBC 12.82 H (4.50-10.00) X 10*3/uL Immature Gran # 0.05 H (0.00-0.04) X 10*3/uL Neutrophils # 10.95 H (1.80-7.70) X 10*3/uL Lymphocytes # 0.88 L (0.90-5.00) X 10*3/uL Eosinophils # 0 L (0.04-0.35) X 10*3/uL BUN 8.9 L (9.0-27.0) mg/dL POC Glucose (mg/dL) 150 H (75-99) mg/dL <Henry Deal - Last Filed: 01/30/21 13:58> Subjective as above. Patient doing well today. Pain is improving. Nausea likewise better. Upper GI shows no evidence of leak or obstruction. Begin bariatric liquids. Ambulate. Objective - Vital Signs Vital signs: Vital Signs Temp 98.3 F 01/30/21 07:53 Pulse 61 01/30/21 11:58 Resp 16 01/30/21 07:53 BP 125/75 01/30/21 07:53 Pulse Ox 93 L 01/30/21 08:11 Intake & Output 01/29/21 01/30/21 01/30/21 18:59 06:59 18:59 Intake Total 2050 1924 Output Total 10 900 400 Balance 2040 1025 -400 Weight 96 kg Intake: IV 2050 Intake, IV Titration 1924 Amount 0.9% NaCl with KCl 20 Meq 1725 /l 1,000 ml @ 100 mls/hr IV .Q10H [facility] Rx#: [id number] ACETAMINOPHEN IV (For NPO 200 ) 1,000 mg In Empty Bag 1 bag @ 400 mls/hr IVPB Q6H [facility] Rx#:[id number] Output: Urine 900 400 Estimated Blood Loss 10 Other: # Voids 4 # Bowel Movements 0 - Labs CBC & Chem 7: 01/30/21 05:24 01/30/21 05:24 Labs: Abnormal Lab Results - Last 24 Hours (Table) 01/29/21 01/29/21 01/30/21 Range/Units 15:54 21:40 05:24 WBC 12.82 H (4.50-10.00) X 10*3/uL Immature Gran # 0.05 H (0.00-0.04) X 10*3/uL Neutrophils # 10.95 H (1.80-7.70) X 10*3/uL Lymphocytes # 0.88 L (0.90-5.00) X 10*3/uL Eosinophils # 0 L (0.04-0.35) X 10*3/uL BUN (9.0-27.0) mg/dL POC Glucose (mg/dL) 196 H 231 H (75-99) mg/dL 01/30/21 01/30/21 01/30/21 Range/Units 05:24 06:51 11:28 WBC (4.50-10.00) X 10*3/uL Immature Gran # (0.00-0.04) X 10*3/uL Neutrophils # (1.80-7.70) X 10*3/uL Lymphocytes # (0.90-5.00) X 10*3/uL Eosinophils # (0.04-0.35) X 10*3/uL BUN 8.9 L (9.0-27.0) mg/dL POC Glucose (mg/dL) 150 H 151 H (75-99) mg/dL Assessment and Plan (1) Morbid obesity with BMI of 40.0-44.9, adult Current Visit: No Status: Acute Code(s): E66.01 - MORBID (SEVERE) OBESITY DUE TO EXCESS CALORIES; Z68.41 - BODY MASS INDEX [BMI] 40.0-44.9, ADULT SNOMED Code(s): 991502152
[2021-01-30 11:29] LABS: Glucose,Whole Blood 151 mg/dL (75-99)
[2021-01-30] MEDS: KETOROLAC 30 MG/ML 1 ML VIAL IVP SCH ×2 (12:55→17:22)
--- NOTE | 2021-01-30 13:59 | FL ---
EXAMINATION TYPE: FL UGI DATE OF EXAM: 01/30/2021 COMPARISON: None HISTORY: Gastric sleeve TECHNIQUE: A single contrast UGI study is performed. FINDINGS: Contrast passes from the distal esophagus through the gastric sleeve with no significant he sitancy. No extravasation of contrast is evident. No free air is noted during this examination. Overhead radiographs were obtained which are unremarkable. Case was discussed with Dr. Deal by Dr. Tucker at the time of interpretation. IMPRESSIONS: 1. Normal post gastric sleeve without obstruction or hesitancy. No extravasation.
--- NOTE | 2021-01-30 14:42 | P.CONS ---
History of Present Illness - Reason for Consult Leukocytosis - History of Present Illness Patient is admitted for laparoscopic sleeve gastrectomy, patient's x-ray underwent surgery patient is still nauseous patient did undergo upper GI series results of which are pending patient is presently nothing by mouth a left lites are within normal limits. Patient is still complaining of severe soreness in the abdomen. Patient denied any cough denied any fever chills denied any dysuria. Patient received Decadron yesterday for inflammation post surgery REVIEW OF SYSTEMS: CONSTITUTIONAL: No fever, no malaise, no fatigue. HEENT: No recent visual problems or hearing problems. Denied any sore throat. CARDIOVASCULAR: No chest pain, orthopnea, PND, no palpitations, no syncope. PULMONARY: No shortness of breath, no cough, no hemoptysis. GASTROINTESTINAL: No diarrhea NEUROLOGICAL: No headaches, no weakness, no numbness. HEMATOLOGICAL: Denies any bleeding or petechiae. GENITOURINARY: Denies any burning micturition, frequency, or urgency. MUSCULOSKELETAL/RHEUMATOLOGICAL: Denies any joint pain, swelling, or any muscle pain. ENDOCRINE: Denies any polyuria or polydipsia. The rest of the 14-point review of systems is negative. PHYSICAL EXAMINATION: GENERAL: The patient is alert and oriented x3, not in any acute distress. Well developed, well nourished. HEENT: Pupils are round and equally reacting to light. EOMI. No scleral icterus. No conjunctival pallor. Normocephalic, atraumatic. No pharyngeal erythema. No thyromegaly. CARDIOVASCULAR: S1 and S2 present. No murmurs, rubs, or gallops. PULMONARY: Chest is clear to auscultation, no wheezing or crackles. ABDOMEN: Soft, postsurgical abdominal packing MUSCULOSKELETAL: No joint swelling or deformity. EXTREMITIES: No cyanosis, clubbing, or pedal edema. NEUROLOGICAL: Gross neurological examination did not reveal any focal deficits. SKIN: No rashes. Assessment and plan Leukocytosis reactive without any evidence of infection and patient also received Decadron -Type 2 diabetes mellitus patient is on trulicity at home patient was started on sliding scale insulin here patient was also on metformin which is being held at this time -Gastroesophageal reflux disease -Hyperthyroidism for which patient is on levothyroxine -Depression DVT prophylaxis: As per primary service Past Medical History Past Medical History: Diabetes Mellitus, GERD/Reflux, Pneumonia, Sleep Apnea/CPAP/BIPAP, Thyroid Disorder Additional Past Medical History / Comment(s): "small brain bleed" 2008 not sure of cause, apr 2017 had stress echo/stress test pt stated normal, supposed to use CPAP but couldn't afford, chronic low back pain, left arm pain History of Any Multi-Drug Resistant Organisms: MRSA Year Discovered:: 01/15/20 MDRO Source:: Right Leg Past Surgical History: Breast Surgery, Cholecystectomy, Hysterectomy, Orthopedic Surgery Additional Past Surgical History / Comment(s): breast reduction, partial hysterectomy-Still has ovaries, 4 right knee surgeries, EGD Past Anesthesia/Blood Transfusion Reactions: No Reported Reaction Smoking Status: Never smoker - Past Family History Father Family Medical History: Diabetes Mellitus, Myocardial Infarction ([place]) Mother Family Medical History: Cancer, Myocardial Infarction ([place]), Thyroid Disorder Additional Family Medical History / Comment(s): lung CA Medications and Allergies Home Medications Medication Instructions Recorded Confirmed Type Levothyroxine Sodium [Synthroid] 75 mcg PO DAILY 09/17/13 01/29/21 History Citalopram Hydrobromide [CeleXA] 40 mg PO HS 11/05/16 01/29/21 History Hydrocodone/Acetaminophen [[place] 1 tab PO Q6HR PRN #20 tablet 04/29/17 01/29/21 Rx 7.5-325] metFORMIN HCL 500 mg PO HS 05/24/18 01/29/21 History Pantoprazole [Protonix] 40 mg PO AC-BRKFST #30 tablet. 05/26/18 01/29/21 Rx Dulaglutide [Trulicity] 0.75 mg SQ Q7D 11/13/20 01/29/21 History Allergies Allergy/AdvReac Type Severity Reaction Status Date / Time bee venom protein (honey bee) Allergy Swelling Verified 01/29/21 12:26 prochlorperazine edisylate Allergy Rash/Hives Verified 01/29/21 12:26 [From Compazine] prochlorperazine maleate Allergy Rash/Hives Verified 01/29/21 12:26 [From Compazine] Sulfa (Sulfonamide Allergy Rash/Hives Verified 01/29/21 12:26 Antibiotics) promethazine HCl AdvReac Confusion Verified 01/29/21 12:26 [From Phenergan] cats Allergy Rash/Hives Uncoded 01/29/21 12:26 Physical Exam Vitals: Vital Signs Temp Pulse Pulse Resp BP Pulse Ox 01/30/21 14:00 99 F 52 L 17 150/85 95 01/30/21 11:58 61 01/30/21 11:48 58 L 01/30/21 08:24 63 01/30/21 08:11 59 L 93 L 01/30/21 07:53 98.3 F 55 L 16 125/75 92 L 01/30/21 02:39 98.3 F 50 L 133/80 92 L 01/29/21 21:28 70 01/29/21 18:27 98.7 F 68 12 102/64 01/29/21 17:45 56 L 14 149/89 96 01/29/21 17:15 57 L 14 159/83 95 01/29/21 17:00 54 L 14 162/88 96 01/29/21 16:30 57 L 14 159/91 96 01/29/21 16:15 53 L 14 160/84 96 01/29/21 16:00 55 L 14 159/94 96 01/29/21 15:45 54 L 14 142/85 96 01/29/21 15:30 67 14 162/91 96 01/29/21 15:14 97.4 F L 70 16 148/82 97 Intake and Output 01/29/21 01/30/21 01/30/21 22:59 06:59 14:59 Intake Total 950 1925 Output Total 900 400 Balance 950 1025 -400 Intake: IV 950 Intake, IV Titration 1925 Amount 0.9% NaCl with KCl 20 Meq 1725 /l 1,000 ml @ 100 mls/hr IV .Q10H [facility] Rx#: [id number] ACETAMINOPHEN IV (For NPO 200 ) 1,000 mg In Empty Bag 1 bag @ 400 mls/hr IVPB Q6H [facility] Rx#:[id number] Output: Urine 900 400 Other: # Voids 4 # Bowel Movements 0 Weight 96 kg Results CBC & Chem 7: 01/30/21 05:24 01/30/21 05:24 Labs: Abnormal Lab Results - Last 24 Hours (Table) 01/29/21 01/29/21 01/30/21 Range/Units 15:54 21:40 05:24 WBC 12.82 H (4.50-10.00) X 10*3/uL Immature Gran # 0.05 H (0.00-0.04) X 10*3/uL Neutrophils # 10.95 H (1.80-7.70) X 10*3/uL Lymphocytes # 0.88 L (0.90-5.00) X 10*3/uL Eosinophils # 0 L (0.04-0.35) X 10*3/uL BUN (9.0-27.0) mg/dL POC Glucose (mg/dL) 196 H 231 H (75-99) mg/dL 01/30/21 01/30/21 01/30/21 Range/Units 05:24 06:51 11:28 WBC (4.50-10.00) X 10*3/uL Immature Gran # (0.00-0.04) X 10*3/uL Neutrophils # (1.80-7.70) X 10*3/uL Lymphocytes # (0.90-5.00) X 10*3/uL Eosinophils # (0.04-0.35) X 10*3/uL BUN 8.9 L (9.0-27.0) mg/dL POC Glucose (mg/dL) 150 H 151 H (75-99) mg/dL
[2021-01-30 16:45] LABS: Glucose,Whole Blood 169 mg/dL (75-99)
[2021-01-30] MEDS: INSULIN ASPART (NovoLOG) 100 UNIT/ML VIAL SQ SCH ×2 (17:22→20:40)
[2021-01-30 20:23] LABS: Glucose,Whole Blood 148 mg/dL (75-99)
[2021-01-30] MEDS: SIMETHICONE 40 MG/0.6 ML DROPS 2,000 MG/30 ML BOTTLE PO PRN (20:40)
[2021-01-31] MEDS: KETOROLAC 30 MG/ML 1 ML VIAL IVP SCH ×4 (00:51→17:44)
[2021-01-31] MEDS: ACETAMINOPHEN IV (For NPO) 1,000 MG in EMPTY BAG 1 BAG IVPB SCH ×4 (00:51→18:28)
[2021-01-31] MEDS: ENOXAPARIN 40 MG/0.4 ML SYRINGE SQ SCH ×2 (00:52→14:14)
[2021-01-31] MEDS: 0.9% NACL WITH KCL 20 MEQ/L 1,000 ML IV SCH ×2 (02:21→16:06)
[2021-01-31] MEDS: LACTATED RINGERS 1,000 ML IV SCH (06:39)
[2021-01-31 06:52] LABS: Glucose,Whole Blood 135 mg/dL (75-99)
[2021-01-31] MEDS: INSULIN ASPART (NovoLOG) 100 UNIT/ML VIAL SQ SCH ×4 (07:46→21:06)
[2021-01-31] MEDS: SIMETHICONE 40 MG/0.6 ML DROPS 2,000 MG/30 ML BOTTLE PO PRN ×2 (07:46→13:26)
[2021-01-31] MEDS: PANTOPRAZOLE 40 MG/10 ML VIAL IV SCH (07:59)
[2021-01-31] MEDS ORDERED: bisacodyL 5 MG TABLET.DR PO PRN (08:00)
[2021-01-31 09:15] LABS: Basophils # (A) 0.02 X 10*3/uL (0.00-0.10); Basophils % (A) 0.3 %; Eosinophils # (A) 0.03 X 10*3/uL (0.04-0.35); Eosinophils % (A) 0.4 %; HGB 11.9 g/dL (12.0-15.0); Lymphocytes # (A) 0.93 X 10*3/uL (0.90-5.00); MCHC 32.2 g/dL (32.0-37.0); MCV 93.2 fL (80.0-97.0); Mean Platelet Volume 10.5 fL (9.5-12.2); Monocytes # (A) 0.59 X 10*3/uL (0.20-1.00); Monocytes % (A) 8.2 %; Neutrophils # (A) 5.59 X 10*3/uL (1.80-7.70); Platelet Count 288 X 10*3/uL (140-440); RBC 3.97 X 10*6/uL (4.10-5.20); RDW 12.9 % (11.5-14.5); WBC 7.17 X 10*3/uL (4.50-10.00)
[2021-01-31] MEDS: ALBUTEROL NEBULIZED 2.5 MG/3 ML INHALATION SCH ×4 (10:01→19:54)
[2021-01-31] MEDS ORDERED: HYDROcodone/APAP 7.5-325MG 1 EACH TAB PO PRN (11:21)
[2021-01-31 11:50] LABS: Glucose,Whole Blood 134 mg/dL (75-99)
--- NOTE | 2021-01-31 12:16 | P.PN ---
Subjective Progress Note Date: 01/31/21 Principal diagnosis: Morbid obesity Patient says her pain is slightly worse today than it has been from the onset. Despite that she says she has been ambulating and wants to go home. She is drinking and has had about 12 ounces today. No nausea or vomiting. She is afebrile. White blood cell count normal. Objective - Vital Signs Vital signs: Vital Signs Temp 98.0 F 01/31/21 07:35 Pulse 70 01/31/21 10:12 Resp 16 01/31/21 10:12 BP 141/84 01/31/21 07:35 Pulse Ox 98 01/31/21 10:01 Intake & Output 01/30/21 01/31/21 01/31/21 18:59 06:59 18:59 Output Total 400 Balance -400 Output: Urine 400 Other: Voiding Method Toilet Toilet # Voids 4 5 # Bowel Movements 0 - Exam Abdomen: Soft, nondistended, incisions clean and dry, mild epigastric and left upper quadrant tenderness - Labs CBC & Chem 7: 01/31/21 05:12 01/30/21 05:24 Labs: Abnormal Lab Results - Last 24 Hours (Table) 01/30/21 01/30/21 01/31/21 Range/Units 16:44 20:21 05:12 RBC 3.97 L (4.10-5.20) X 10*6/uL Hgb 11.9 L (12.0-15.0) g/dL Hct 37.0 L (37.2-46.3) % Eosinophils # 0.03 L (0.04-0.35) X 10*3/uL POC Glucose (mg/dL) 169 H 148 H (75-99) mg/dL 01/31/21 01/31/21 Range/Units 06:50 11:49 RBC (4.10-5.20) X 10*6/uL Hgb (12.0-15.0) g/dL Hct (37.2-46.3) % Eosinophils # (0.04-0.35) X 10*3/uL POC Glucose (mg/dL) 135 H 134 H (75-99) mg/dL Assessment and Plan (1) Morbid obesity with BMI of 40.0-44.9, adult Narrative/Plan: Clinically patient looks good. She is tolerating her liquids at a reasonable rate. Unfortunate she says her pain is worse than it has been from the onset. Unclear whether this is related to her being more active at this point. Despite her wanting to go home I favor observation tonight. We'll discharge tomorrow if pain is improved. Pain increases further Will obtain CT abdomen and pelvis. Current Visit: No Status: Acute Code(s): E66.01 - MORBID (SEVERE) OBESITY DUE TO EXCESS CALORIES; Z68.41 - BODY MASS INDEX [BMI] 40.0-44.9, ADULT SNOMED Code(s): 140349610
--- NOTE | 2021-01-31 15:33 | P.PN ---
Subjective Progress Note Date: 01/31/21 Patient is admitted for laparoscopic sleeve gastrectomy, patient's x-ray underwent surgery patient is still nauseous patient did undergo upper GI series results of which are pending patient is presently nothing by mouth a left lites are within normal limits. Patient is still complaining of severe soreness in the abdomen. Patient denied any cough denied any fever chills denied any dysuria. Patient received Decadron yesterday for inflammation post surgery 01/31/2021 Patient evaluated up in the bathroom, no bowel movement yet, but she is passing gas. Patient is having some abdominal discomfort, which she states is with him yesterday. Medications will be adjusted by primary. She is hoping to be discharged home today. Primary surgery is recommending observation overnight to monitor abdominal pain. Dietary consult for postsurgical diet instructions. Labs today: WBC of 7.17, hemoglobin 11.9. Sugars are in the 140s. Vital signs: temp of 98, heart rate 90 sinus rhythm, blood pressure 141/84, 96% on room air. ROS Constitutional: Denied any fatigue denied any fever. Cardio vascular: denied any chest pain, palpitations Gastrointestinal denied any nausea vomiting, diarrhea. Reports passing gas, reports abdominal pain. Pulmonary: Denied any shortness of breath cough Neurologic denied any new focal deficits All inpatient medications were reviewed and appropriate changes in these med ications as dictated in the interval history and assessment and plan. PHYSICAL EXAMINATION: GENERAL: The patient is alert and oriented x3, not in any acute distress. Well developed, well nourished. HEENT: Pupils are round and equally reacting to light. EOMI. No scleral icterus. No conjunctival pallor. Normocephalic, atraumatic. No pharyngeal erythema. No thyromegaly. CARDIOVASCULAR: S1 and S2 present. No murmurs, rubs, or gallops. PULMONARY: Chest is clear to auscultation, no wheezing or crackles. ABDOMEN: Soft, postsurgical abdomen with laproscopic incision, abdominal binder in place MUSCULOSKELETAL: No joint swelling or deformity. EXTREMITIES: No cyanosis, clubbing, or pedal edema. NEUROLOGICAL: Gross neurological examination did not reveal any focal deficits. SKIN: No rashes. laproscopic incisions Assessment and plan Assessment -Leukocytosis reactive without any evidence of infection and patient also received Decadron, improved, WNL today -Type 2 diabetes mellitus patient is on trulicity at home, metformin O/H, on novolog -Gastroesophageal reflux disease -Hyperthyroidism for which patient is on levothyroxine -Depression DVT prophylaxis: As per primary service GI Prophylaxis: Protonix FULL CODE Plan Continue pain management Encourage ambulation and IS Continue all other supportive care Continue novolog coverage Possible discharge tomorrow if abdominal pain improves. Objective - Vital Signs Vital signs: Vital Signs Temp 98.0 F 01/31/21 07:35 Pulse 70 01/31/21 10:12 Resp 16 01/31/21 10:12 BP 141/84 01/31/21 07:35 Pulse Ox 98 01/31/21 10:01 Intake & Output 01/30/21 01/31/21 01/31/21 18:59 06:59 18:59 Output Total 400 Balance -400 Output: Urine 400 Other: Voiding Method Toilet Toilet # Voids 4 5 # Bowel Movements 0 - Labs CBC & Chem 7: 01/31/21 05:12 01/30/21 05:24 Labs: Abnormal Lab Results - Last 24 Hours (Table) 01/30/21 01/30/21 01/31/21 Range/Units 16:44 20:21 05:12 RBC 3.97 L (4.10-5.20) X 10*6/uL Hgb 11.9 L (12.0-15.0) g/dL Hct 37.0 L (37.2-46.3) % Eosinophils # 0.03 L (0.04-0.35) X 10*3/uL POC Glucose (mg/dL) 169 H 148 H (75-99) mg/dL 01/31/21 Range/Units 06:50 RBC (4.10-5.20) X 10*6/uL Hgb (12.0-15.0) g/dL Hct (37.2-46.3) % Eosinophils # (0.04-0.35) X 10*3/uL POC Glucose (mg/dL) 135 H (75-99) mg/dL
[2021-01-31 16:51] LABS: Glucose,Whole Blood 121 mg/dL (75-99)
[2021-01-31 21:00] LABS: Glucose,Whole Blood 134 mg/dL (75-99)
[2021-02-01] MEDS: ACETAMINOPHEN IV (For NPO) 1,000 MG in EMPTY BAG 1 BAG IVPB SCH ×3 (00:53→12:28)
[2021-02-01] MEDS: KETOROLAC 30 MG/ML 1 ML VIAL IVP SCH ×3 (00:54→12:28)
[2021-02-01] MEDS: ENOXAPARIN 40 MG/0.4 ML SYRINGE SQ SCH ×2 (00:54→12:29)
[2021-02-01] MEDS: SIMETHICONE 40 MG/0.6 ML DROPS 2,000 MG/30 ML BOTTLE PO PRN (01:01)
[2021-02-01] MEDS: LACTATED RINGERS 1,000 ML IV SCH (02:56)
[2021-02-01] MEDS: 0.9% NACL WITH KCL 20 MEQ/L 1,000 ML IV SCH ×2 (06:24→12:29)
[2021-02-01 06:45] LABS: Glucose,Whole Blood 121 mg/dL (75-99)
[2021-02-01] MEDS: INSULIN ASPART (NovoLOG) 100 UNIT/ML VIAL SQ SCH ×2 (06:52→12:15)
[2021-02-01] MEDS: ALBUTEROL NEBULIZED 2.5 MG/3 ML INHALATION SCH ×2 (07:20→11:27)
[2021-02-01] MEDS: PANTOPRAZOLE 40 MG/10 ML VIAL IV SCH (08:31)
[2021-02-01 08:46] VITALS: BMI 37.5
--- NOTE | 2021-02-01 11:26 | P.PN ---
Subjective Progress Note Date: 02/01/21 Patient is admitted for laparoscopic sleeve gastrectomy, patient's x-ray underwent surgery patient is still nauseous patient did undergo upper GI series results of which are pending patient is presently nothing by mouth a left lites are within normal limits. Patient is still complaining of severe soreness in the abdomen. Patient denied any cough denied any fever chills denied any dysuria. Patient received Decadron yesterday for inflammation post surgery 01/31/2021 Patient evaluated up in the bathroom, no bowel movement yet, but she is passing gas. Patient is having some abdominal discomfort, which she states is with him yesterday. Medications will be adjusted by primary. She is hoping to be discharged home today. Primary surgery is recommending observation overnight to monitor abdominal pain. Dietary consult for postsurgical diet instructions. Labs today: WBC of 7.17, hemoglobin 11.9. Sugars are in the 140s. Vital signs: temp of 98, heart rate 90 sinus rhythm, blood pressure 141/84, 96% on room air. 02/01/2021 Patient evaluated today and awaiting in her room. She is passing more gas than yesterday however she still has not had a bowel movement. Abdominal pain is much improved. She's been discharged home today. She states that she has a appointment with dietary outpatient tomorrow. Vital signs today showed temperature 90.8, heart rate 58, blood pressure 105/50 and she's 96% on room air. Positive bowel sounds, lungs are clear to auscultation. She can be cleared medically for discharge. ROS Constitutional: Denied any fatigue denied any fever. Cardio vascular: denied any chest pain, palpitations Gastrointestinal denied any nausea vomiting, diarrhea. Reports passing gas, reports improving abdominal pain, denies BM Pulmonary: Denied any shortness of breath cough Neurologic denied any new focal deficits All inpatient medications were reviewed and appropriate changes in these medications as dictated in the interval history and assessment and plan. PHYSICAL EXAMINATION: GENERAL: The patient is alert and oriented x3, not in any acute distress. Well developed, well nourished. HEENT: Pupils are round and equally reacting to light. EOMI. No scleral icterus. No conjunctival pallor. Normocephalic, atraumatic. No pharyngeal erythema. No thyromegaly. CARDIOVASCULAR: S1 and S2 present. No murmurs, rubs, or gallops. PULMONARY: Chest is clear to auscultation, no wheezing or crackles. ABDOMEN: Soft, postsurgical abdomen with laproscopic incision, abdominal binder in place MUSCULOSKELETAL: No joint swelling or deformity. EXTREMITIES: No cyanosis, clubbing, or pedal edema. NEUROLOGICAL: Gross neurological examination did not reveal any focal deficits. SKIN: No rashes. laproscopic incisions Assessment and plan Assessment -Leukocytosis reactive without any evidence of infection and patient also received Decadron, improved, WNL today -Type 2 diabetes mellitus patient is on trulicity at home, metformin O/H, on novolog -Gastroesophageal reflux disease -Hyperthyroidism for which patient is on levothyroxine -Depression DVT prophylaxis: As per primary service GI Prophylaxis: Protonix FULL CODE Plan Continue pain management Encourage ambulation and IS Continue all other supportive care Cleared medically for discharge, thank you for this consultation. Objective - Vital Signs Vital signs: Vital Signs Temp 98.8 F 02/01/21 07:53 Pulse 58 L 02/01/21 07:53 Resp 19 02/01/21 07:53 BP 105/50 02/01/21 07:53 Pulse Ox 96 02/01/21 07:53 Intake & Output 01/31/21 02/01/21 02/01/21 18:59 06:59 18:59 Intake Total 1200 Balance 1200 Weight 96 kg Intake: Intake, IV Titration 1200 Amount 0.9% NaCl with KCl 20 Meq 1000 /l 1,000 ml @ 100 mls/hr IV .Q10H DAMIAN Rx#: [id number] ACETAMINOPHEN IV (For NPO 200 ) 1,000 mg In Empty Bag 1 bag @ 400 mls/hr IVPB Q6H DAMIAN Rx#:[id number] Other: Voiding Method Toilet Toilet Toilet - Labs CBC & Chem 7: 01/31/21 05:12 01/30/21 05:24 Labs: Abnormal Lab Results - Last 24 Hours (Table) 01/31/21 01/31/21 01/31/21 Range/Units 11:49 16:49 20:58 POC Glucose (mg/dL) 134 H 121 H 134 H (75-99) mg/dL 02/01/21 Range/Units 06:44 POC Glucose (mg/dL) 121 H (75-99) mg/dL
[2021-02-01 11:54] LABS: Glucose,Whole Blood 116 mg/dL (75-99)
--- NOTE | 2021-02-01 12:33 | P.DS ---
<Annmarie Rodarte - Last Filed: 02/01/21 12:30> Providers Expected date of discharge: 02/01/21 Hospital Course: Discharge diagnosis 1. Morbid obesity, sleep apnea, diabetes, chronic back pain, GERD status post laparoscopic sleeve gastrectomy Hospital course This is a 50-year-old female with known history of morbid obesity. She is status post laparoscopic sleeve gastrectomy. She tolerated surgery well. Upper GI showed no evidence of leak or obstruction. She is tolerating bariatric clear liquid diet. She is having flatus. Her pain is controlled. She is up and ambulating. Her incision sites are clean dry and intact. She is afebrile. She is stable for discharge. Please refer to chart for any further details. Physician Skoog Operator note has been reviewed by physician. Signing provider agrees with the documented findings, assessment, and plan of care. Patient Condition at Discharge: Stable Plan - Discharge Summary Discharge Rx Participant: No New Discharge Prescriptions: New Ondansetron Odt [Zofran Odt] 4 mg PO Q8HR PRN #9 tab PRN Reason: Nausea bisacodyL [Dulcolax] 5 mg PO DAILY PRN #10 tab PRN Reason: Constipation Simethicone 40 mg/0.6 ml Drops [Mylicon Drops] 40 mg PO PCHS PRN #30 ml PRN Reason: Gas Continue Levothyroxine Sodium [Synthroid] 75 mcg PO DAILY Citalopram Hydrobromide [CeleXA] 40 mg PO HS metFORMIN HCL 500 mg PO HS Pantoprazole [Protonix] 40 mg PO AC-BRKFST #30 tablet. Dulaglutide [Trulicity] 0.75 mg SQ Q7D Hydrocodone/Acetaminophen [Wyola 7.5-325] 1 tab PO Q6HR PRN #12 tab PRN Reason: Pain Discharge Medication List Levothyroxine Sodium [Synthroid] 75 mcg PO DAILY 09/17/13 [History] Citalopram Hydrobromide [CeleXA] 40 mg PO HS 11/05/16 [History] metFORMIN HCL 500 mg PO HS 05/24/18 [History] Pantoprazole [Protonix] 40 mg PO AC-BRKFST #30 tablet. 05/26/18 [Rx] Dulaglutide [Trulicity] 0.75 mg SQ Q7D 11/13/20 [History] Hydrocodone/Acetaminophen [Wyola 7.5-325] 1 tab PO Q6HR PRN #12 tab 02/01/21 [Rx] Ondansetron Odt [Zofran Odt] 4 mg PO Q8HR PRN #9 tab 02/01/21 [Rx] Simethicone 40 mg/0.6 ml Drops [Mylicon Drops] 40 mg PO PCHS PRN #30 ml 02/01/21 [Rx] bisacodyL [Dulcolax] 5 mg PO DAILY PRN #10 tab 02/01/21 [Rx] Follow up Appointment(s)/Referral(s): [facility] [NON-STAFF] - 02/02/21 10:00 am (Please follow up on Friday01/31/21 at 1000 am for a nurse visit in the [facility] on the 3rd floor of the [facility]. ) Activity/Diet/Wound Care/Special Instructions: No driving while taking Wy[place] No lifting over 10 pounds You may shower. No soaking or tub baths for 2 weeks Very light activity until you are reevaluated at your follow up appointment with your surgeon No straws or carbonated beverages Discharge Disposition: HOME SELF-CARE <Henry Deal - Last Filed: 02/01/21 13:24> Providers Date of admission: 01/29/21 11:31 Attending physician: Henry Deal Consults: 01/29/21 14:50 Consult Physician Routine Consulting Provider: Neeta Medina Consult Reason/Comments: Medical management Do you want consulting provider notified?: Yes Primary care physician: Dominga Deal - Discharge Diagnosis(es) (1) Morbid obesity with BMI of 40.0-44.9, adult Current Visit: No Status: Acute Hospital Course: As above. Patient doing well today. May discharge. Follow-up next Friday.
[2021-02-01 13:58] VITALS: BP 115/80; PULSE 71; RESP 16; TEMP 98.3
[2021-02-01] MEDS ORDERED: CITALOPRAM HYDROBROMIDE 20 MG TAB PO SCH (21:00)
[2021-02-02] MEDS ORDERED: LEVOTHYROXINE 75 MCG TAB PO SCH (06:30)
== END 2021-02-01 14:39 | disposition home or self-care (01) | DRG 621 ==
LOC: 2ORMAIN 11:31 → 4SSUR 17:56
PROVIDERS: ADMIT Surgery; ATTEND Surgery
PROC: 0DB64Z3 Excision of Stomach, Percutaneous Endoscopic Approach, Vertical (ICD-10-PCS; principal; 2021-01-29 12:45)
DX: E66.01 Morbid (severe) obesity due to excess calories (principal); E11.9 Type 2 diabetes mellitus without complications; D72.829 Elevated white blood cell count, unspecified; E05.90 Thyrotoxicosis, unspecified without thyrotoxic crisis or storm; F32.A Depression, unspecified; Z20.822 Contact with and (suspected) exposure to COVID-19; G47.30 Sleep apnea, unspecified; G89.29 Other chronic pain; M54.50 Low back pain, unspecified; M79.602 Pain in left arm; K21.9 Gastro-esophageal reflux disease without esophagitis; K29.70 Gastritis, unspecified, without bleeding; K31.7 Polyp of stomach and duodenum; Z68.37 Body mass index [BMI] 37.0-37.9, adult; Z79.84 Long term (current) use of oral hypoglycemic drugs; Z79.890 Hormone replacement therapy; Z79.899 Other long term (current) drug therapy; Z87.01 Personal history of pneumonia (recurrent); Z86.73 Personal history of transient ischemic attack (TIA), and cerebral infarction without residual deficits; Z86.14 Personal history of Methicillin resistant Staphylococcus aureus infection; Z90.49 Acquired absence of other specified parts of digestive tract; Z90.711 Acquired absence of uterus with remaining cervical stump; Z87.19 Personal history of other diseases of the digestive system; Z87.42 Personal history of other diseases of the female genital tract; Z87.39 Personal history of other diseases of the musculoskeletal system and connective tissue; Z87.2 Personal history of diseases of the skin and subcutaneous tissue; Z98.890 Other specified postprocedural states; Z71.3 Dietary counseling and surveillance; Z91.030 Bee allergy status; Z88.2 Allergy status to sulfonamides; Z88.8 Allergy status to other drugs, medicaments and biological substances; Z91.048 Other nonmedicinal substance allergy status; Z83.3 Family history of diabetes mellitus; Z82.49 Family history of ischemic heart disease and other diseases of the circulatory system; Z80.1 Family history of malignant neoplasm of trachea, bronchus and lung; Z83.49 Family history of other endocrine, nutritional and metabolic diseases
CPT/HCPCS: 74240; 80051; 82310; 82565; 83735; 84100; 84520; 85025; 87635; 88307; 94640; 94760

== ENCOUNTER → 2021-02-02 | Outpatient (CLI) | payer BC ==
[2021-02-02 10:18] VITALS: BP 123/82; PULSE 72; TEMP 98; BMI 37.5
== END ==
LOC: BARWHC3 09:57
PROVIDERS: ATTEND Surgery
DX: Z09 Encounter for follow-up examination after completed treatment for conditions other than malignant neoplasm (principal); Z98.84 Bariatric surgery status; Z88.2 Allergy status to sulfonamides; Z91.030 Bee allergy status; Z88.8 Allergy status to other drugs, medicaments and biological substances
CPT/HCPCS: 99211

== ENCOUNTER → 2021-02-06 | Outpatient (CLI) | payer BC ==
[2021-02-06 11:57] VITALS: BP 128/82; PULSE 92; TEMP 98.2; BMI 36.5
--- NOTE | 2021-02-06 13:17 | P.BASOAP ---
Subjective Progress Note Date: 02/06/21 Principal diagnosis: Morbid obesity Patient returns 1 week post sleeve gastrectomy. Patient apparently had stopped taking her anxiety medications and she has had a few breakdowns recently. Denies abdominal pain. Tolerating liquid diet. Drinking about 40 ounces per day. She does not like the taste of her protein drinks. No fevers. Heart rate 97. Objective - Vital Signs Vital signs: Vital Signs Temp 98.2 F 02/06/21 11:55 Pulse 92 02/06/21 11:55 Resp BP 128/82 02/06/21 11:55 Pulse Ox Intake & Output 02/05/21 02/06/21 02/06/21 18:59 06:59 18:59 Weight 93.44 kg - Exam Abdomen: Soft, nondistended, incisions clean and dry, nontender Assessment/Plan (1) Morbid obesity Narrative/Plan: Overall patient doing fairly well. Continue increasing protein and liquid intake. Continue light lifting. Agree with resuming anxiety medications. Return visit 2 weeks. Plan: Date: 02/06/21 Initial Weight: Initial BMI: Current Weight: 93.44 kg Current BMI: 36.5 Type of Surgery: Total Volume in Band: Previous Volume: Volume Removed: Volume Added: Band Size:
== END ==
LOC: BARWHC3 11:32
PROVIDERS: ATTEND Surgery
DX: E66.01 Morbid (severe) obesity due to excess calories (principal); Z68.36 Body mass index [BMI] 36.0-36.9, adult; Z98.84 Bariatric surgery status; Z91.030 Bee allergy status; Z88.2 Allergy status to sulfonamides; Z91.09 Other allergy status, other than to drugs and biological substances; Z88.8 Allergy status to other drugs, medicaments and biological substances
CPT/HCPCS: 97803; 99211

== ENCOUNTER → 2021-02-20 | Outpatient (CLI) | payer BC ==
[2021-02-20 13:16] VITALS: BP 104/71; PULSE 98; RESP 16; TEMP 97.8; BMI 35.6
--- NOTE | 2021-02-20 14:38 | P.BASOAP ---
Subjective Progress Note Date: 02/20/21 Principal diagnosis: Morbid obesity Patient returns for reevaluation. Surgery one month ago. Anxiety is much improved. She is back on her medications. She is over 50 ounces of liquids daily. Adequate protein intake. Mild heartburn. Mild nausea. Nausea seems to be aggravated by Carlos. No pain. Could weight loss. Objective - Vital Signs Vital signs: Vital Signs Temp 97.8 F 02/20/21 13:11 Pulse 98 02/20/21 13:11 Resp 16 02/20/21 13:11 BP 104/71 02/20/21 13:11 Pulse Ox Intake & Output 02/19/21 02/20/21 02/20/21 18:59 06:59 18:59 Weight 91.172 kg - Exam Abdomen: Soft, nontender, nondistended Assessment/Plan (1) Morbid obesity Narrative/Plan: Patient doing well at this time. Continue dietary and exercise regimen. Check one month labs at this time. Follow-up 4-6 weeks. Plan: Date: 02/20/21 Initial Weight: 105.233 kg Initial BMI: 41.1 Current Weight: 91.172 kg Current BMI: 35.6 Type of Surgery: Vertical Sleeve Gastrectomy Total Volume in Band: Previous Volume: Volume Removed: Volume Added: Band Size:
== END ==
LOC: BARWHC3 12:54
PROVIDERS: ATTEND Surgery
DX: E66.01 Morbid (severe) obesity due to excess calories (principal); Z68.35 Body mass index [BMI] 35.0-35.9, adult; Z91.030 Bee allergy status; Z88.8 Allergy status to other drugs, medicaments and biological substances; Z91.09 Other allergy status, other than to drugs and biological substances; Z88.2 Allergy status to sulfonamides
CPT/HCPCS: 97803; 99211

== ENCOUNTER → 2021-03-05 | Outpatient (CLI) | payer BC ==
[2021-03-05 23:26] LABS: HCT 45.1 % (37.2-46.3); HGB 14.1 g/dL (12.0-15.0); MCH 29.4 pg (27.0-32.0); MCHC 31.3 g/dL (32.0-37.0); Mean Platelet Volume 11.6 fL (9.5-12.2); Platelet Count 276 X 10*3/uL (140-440); RDW 13.2 % (11.5-14.5); WBC 7.36 X 10*3/uL (4.50-10.00)
[2021-03-06 00:52] LABS: African American GFR (CKD) 118.3 (60.0-200.0); Albumin 4.1 g/dL (3.8-4.9); Albumin/Globulin Ratio 1.71 (1.60-3.17); BUN/Creat Ratio 21.54 Ratio (12.00-20.00); Calcium 9.4 mg/dL (8.7-10.3); Folate, Serum 11.4 ng/mL (4.40-31.00); Globulin 2.4 g/dL (1.6-3.3); Non-African American GFR(CKD) 102.1 (60.0-200.0); Potassium 4.3 mmol/L (3.5-5.5); Total Bilirubin 0.3 mg/dL (0.30-1.20); Total Protein 6.6 g/dL (6.2-8.2)
== END | disposition home or self-care (01) ==
LOC: LABWHC1 15:13
PROVIDERS: ATTEND Surgery
DX: E55.9 Vitamin D deficiency, unspecified (principal); E66.01 Morbid (severe) obesity due to excess calories; K90.89 Other intestinal malabsorption
CPT/HCPCS: 36415; 80053; 82306; 82607; 82746; 83540; 84425; 85027

== ENCOUNTER → 2021-03-27 | Outpatient (CLI) | payer BC ==
[2021-03-27 14:38] VITALS: BP 104/72; PULSE 74; RESP 16; TEMP 98.3; BMI 34.5
--- NOTE | 2021-03-27 15:03 | P.BASOAP ---
Subjective Progress Note Date: 03/27/21 Principal diagnosis: Morbid obesity Patient returns for recheck. Doing well since last visit. Describes some hunger pangs that have been there since early after surgery. Says it still present even after eating at times. No heartburn. 6 pound weight loss since last visit. Still taking antiacid daily. Labs checked last visit look good. Objective - Vital Signs Vital signs: Vital Signs Temp 98.3 F 03/27/21 14:37 Pulse 74 03/27/21 14:37 Resp 16 03/27/21 14:37 BP 104/72 03/27/21 14:37 Pulse Ox Intake & Output 03/26/21 03/27/21 03/27/21 18:59 06:59 18:59 Weight 88.451 kg - Exam Abdomen: Soft, nontender, nondistended Assessment/Plan (1) Morbid obesity Narrative/Plan: Patient doing well. Continue increasing exercise and follow dietary regimen. Recheck 6 weeks. Check labs at that time. Plan: Date: 03/27/21 Initial Weight: 105.233 kg Initial BMI: 41.1 Current Weight: 88.451 kg Current BMI: 34.5 Type of Surgery: Total Volume in Band: Previous Volume: Volume Removed: Volume Added: Band Size:
== END ==
LOC: BARWHC3 14:19
PROVIDERS: ATTEND Surgery
DX: E66.01 Morbid (severe) obesity due to excess calories (principal); Z68.34 Body mass index [BMI] 34.0-34.9, adult; Z91.030 Bee allergy status; Z88.1 Allergy status to other antibiotic agents; Z88.2 Allergy status to sulfonamides; Z91.09 Other allergy status, other than to drugs and biological substances
CPT/HCPCS: 99211

== ENCOUNTER → 2021-04-26 | Outpatient (CLI) | payer BC ==
--- NOTE | 2021-04-27 13:19 | MM ---
Reason for exam: screening (asymptomatic). Last mammogram was performed 4 years and 5 months ago. History: Patient has history of high-risk lesion on a previous biopsy at age 25. Family history of breast cancer in maternal grandmother. Reductions of both breasts, 2006. Physical Findings: A clinical breast exam by your physician is recommended on an annual basis and results should be correlated with mammographic findings. MG 3D Screening Mammo W/Cad Bilateral CC and MLO view(s) were taken. Prior study comparison: November 29, 2016, bilateral MG screening mammo w CAD. There are scattered fibroglandular densities. There is no discrete abnormality. No significant changes when compared with prior studies. ASSESSMENT: Negative, BI-RAD 1 RECOMMENDATION: Routine screening mammogram of both breasts in 1 year.
== END | disposition home or self-care (01) ==
LOC: RADMAMWWP 15:21
PROVIDERS: ATTEND Family Medicine
DX: Z12.31 Encounter for screening mammogram for malignant neoplasm of breast (principal); Z80.3 Family history of malignant neoplasm of breast
CPT/HCPCS: 77063; 77067

== ENCOUNTER → 2021-06-12 | Outpatient (CLI) | payer BC ==
[2021-06-12 14:39] VITALS: BP 107/71; PULSE 89; RESP 16; TEMP 98.2; BMI 32.7
--- NOTE | 2021-06-12 15:05 | P.BASOAP ---
Subjective Progress Note Date: 06/12/21 Principal diagnosis: Morbid obesity Patient returns for reevaluation. Last seen in March. Says she had blood work at her primary care office last month. No longer taking antiacids. She has lost 10 pounds. Her recent hemoglobin A1c was down to 6. She has had some hair loss recently. Objective - Vital Signs Vital signs: Vital Signs Temp 98.2 F 06/12/21 14:34 Pulse 89 06/12/21 14:34 Resp 16 06/12/21 14:34 BP 107/71 06/12/21 14:34 Pulse Ox Intake & Output 06/11/21 06/12/21 06/12/21 18:59 06:59 18:59 Weight 83.779 kg - Exam Abdomen: Soft, nontender, nondistended Assessment/Plan (1) Morbid obesity Narrative/Plan: Patient doing well at this time. We'll check labs from primary care office. Follow-up 6-8 weeks. Plan: Date: 06/12/21 Initial Weight: 105.233 kg Initial BMI: 41.1 Current Weight: 83.779 kg Current BMI: 32.7 Type of Surgery: Total Volume in Band: Previous Volume: Volume Removed: Volume Added: Band Size:
== END ==
LOC: BARWHC3 14:03
PROVIDERS: ATTEND Surgery
DX: E66.01 Morbid (severe) obesity due to excess calories (principal); Z68.32 Body mass index [BMI] 32.0-32.9, adult; Z91.030 Bee allergy status; Z88.2 Allergy status to sulfonamides; Z91.09 Other allergy status, other than to drugs and biological substances; Z88.8 Allergy status to other drugs, medicaments and biological substances
CPT/HCPCS: 97803; 99211

== ENCOUNTER → 2021-09-11 | Outpatient (CLI) | payer BC ==
[2021-09-11 13:37] VITALS: BP 118/83; PULSE 87; RESP 16; TEMP 98.7; BMI 32.5
--- NOTE | 2021-09-11 13:50 | P.BASOAP ---
Subjective Progress Note Date: 09/11/21 Principal diagnosis: Morbid obesity Patient returns for recheck. She was last seen in July. Since then the patient says she has had some depression issues. She said she had 2 weeks where she was eating very poorly because of her depression. She has lost 3 pounds since her last visit. She remains off of her diabetic medications. She is getting on 10/13. Patient had stopped her antiacids previously but recently started have some reflux symptoms. She is due for 6 month labs. Objective - Vital Signs Vital signs: Vital Signs Temp 98.7 F 09/11/21 13:35 Pulse 87 09/11/21 13:35 Resp 16 09/11/21 13:35 BP 118/83 09/11/21 13:35 Pulse Ox FiO2 Intake & Output 09/10/21 09/11/21 09/11/21 18:59 06:59 18:59 Weight 83.461 kg - Exam Abdomen: Soft, nontender, nondistended Assessment/Plan (1) Morbid obesity Narrative/Plan: Patient doing fairly well. Unfortunate she has had some emotional issues recently. We discussed her seeing her counselor to discuss these issues further. We'll check 6 month labs at this time. We will refill her omeprazole prescription. Plan recheck here in 6 weeks. Will be seen by dietary today. Plan: Date: 09/11/21 Initial Weight: 105.233 kg Initial BMI: 41.1 Current Weight: 83.461 kg Current BMI: 32.5 Type of Surgery: Vertical Sleeve Gastrectomy Total Volume in Band: Previous Volume: Volume Removed: Volume Added: Band Size:
== END ==
LOC: BARWHC3 13:23
PROVIDERS: ATTEND Surgery
DX: E66.01 Morbid (severe) obesity due to excess calories (principal); E11.9 Type 2 diabetes mellitus without complications; Z71.3 Dietary counseling and surveillance; F32.A Depression, unspecified; Z68.32 Body mass index [BMI] 32.0-32.9, adult; Z98.84 Bariatric surgery status; Z91.030 Bee allergy status; Z88.2 Allergy status to sulfonamides; Z91.09 Other allergy status, other than to drugs and biological substances; Z88.4 Allergy status to anesthetic agent; Z88.8 Allergy status to other drugs, medicaments and biological substances
CPT/HCPCS: 97803; 99211

== ENCOUNTER → 2021-11-13 | Outpatient (CLI) | payer BC ==
[2021-11-13 14:30] VITALS: BP 120/56; PULSE 68; RESP 16; TEMP 98.6; BMI 33.5
--- NOTE | 2021-11-13 14:52 | P.BASOAP ---
Subjective Progress Note Date: 11/13/21 Principal diagnosis: Morbid obesity Patient returns for recheck. She was last month. Doing well. Stress level has gone down somewhat. She has gained 5 pounds since her last visit. She never did get her 6 month labs checked last time. She does complain of some insomnia and fatigue at times. She is taking her antiacids 2 times per week. Objective - Vital Signs Vital signs: Vital Signs Temp 98.6 F 11/13/21 14:26 Pulse 68 11/13/21 14:26 Resp 16 11/13/21 14:26 BP 120/56 11/13/21 14:26 Pulse Ox FiO2 Intake & Output 11/12/21 11/13/21 11/13/21 18:59 06:59 18:59 Weight 85.729 kg - Exam Abdomen: Soft, nontender, nondistended Assessment/Plan (1) Morbid obesity Narrative/Plan: Patient doing well at this time. We will reorder 6 month labs. We will send him a refill for the patient's omeprazole. She will discuss her insomnia issues with her primary care physician. Continue increase exercise level. Follow-up 4-6 weeks. Plan: Date: 11/13/21 Initial Weight: 105.233 kg Initial BMI: 41.1 Current Weight: 85.729 kg Current BMI: 33.5 Type of Surgery: Vertical Sleeve Gastrectomy Total Volume in Band: Previous Volume: Volume Removed: Volume Added: Band Size:
== END ==
LOC: BARWHC3 14:00
PROVIDERS: ATTEND Surgery
DX: E66.01 Morbid (severe) obesity due to excess calories (principal); Z68.33 Body mass index [BMI] 33.0-33.9, adult; G47.00 Insomnia, unspecified; Z91.030 Bee allergy status; Z88.2 Allergy status to sulfonamides; Z88.8 Allergy status to other drugs, medicaments and biological substances; Z71.3 Dietary counseling and surveillance
CPT/HCPCS: 97803; 99211

== ENCOUNTER → 2022-06-25 | Outpatient (CLI) | payer BC ==
[2022-06-25 13:34] VITALS: BP 117/74; PULSE 71; RESP 16; TEMP 98.5; BMI 34.7
--- NOTE | 2022-06-25 16:25 | P.BASOAP ---
Subjective Progress Note Date: 06/25/22 Principal diagnosis: Morbid obesity Patient returns for recheck. Since her last visit she had surgery on her arm. This led to some decreased activity. She has gained 7 pounds. Patient says she is not able to eat much. She has been making some poor choices with sweets at times. Cystoscopy she was depressed because of hair loss. Taking antiacid 2 times per week. Objective - Vital Signs Vital signs: Vital Signs Temp 98.5 F 06/25/22 13:30 Pulse 71 06/25/22 13:30 Resp 16 06/25/22 13:30 BP 117/74 06/25/22 13:30 Pulse Ox FiO2 Intake & Output 06/24/22 06/25/22 06/25/22 18:59 06:59 18:59 Weight 88.904 kg - Exam Abdomen: Soft, nontender, nondistended Assessment/Plan (1) Morbid obesity Narrative/Plan: 52-year-old female doing well after previous sleeve gastrectomy. Continue dietary and exercise regimen. Patient would like more frequent follow-up to help encourage her to stay focused. Recheck 2 months. Plan: Date: 06/25/22 Initial Weight: 105.233 kg Initial BMI: 41.1 Current Weight: 88.904 kg Current BMI: 34.7 Type of Surgery: Vertical Sleeve Gastrectomy Total Volume in Band: Previous Volume: Volume Removed: Volume Added: Band Size:
== END ==
LOC: BARWHC3 12:52
PROVIDERS: ATTEND Surgery
DX: E66.01 Morbid (severe) obesity due to excess calories (principal); Z98.84 Bariatric surgery status; Z68.34 Body mass index [BMI] 34.0-34.9, adult; Z91.02 Food additives allergy status; Z88.2 Allergy status to sulfonamides; Z91.018 Allergy to other foods; Z88.8 Allergy status to other drugs, medicaments and biological substances
CPT/HCPCS: 99211

== ENCOUNTER 2022-07-22 14:40 | Observation (INO) | payer BC ==
[2022-07-22 15:35] LABS: INR 0.9 (<1.2); Prothrombin Time 9.8 sec (9.0-12.0)
--- NOTE | 2022-07-22 15:35 | CT ---
EXAMINATION TYPE: CT brain wo con DATE OF EXAM: 07/22/2022 COMPARISON: October 02, 2014 HISTORY: headaches and dizziness x2 days, h/o brain bleed x8 years ago CT DLP: 1103.[address] of the brain was performed. The ventricles, basal cisterns and sulci overlying the cerebral convexities demonstrate mild enlargem ent. There is no evidence for intracranial hemorrhage or sulcal effacement. There is decreased attenuation about the periventricular white matter and deep white matter of both c erebral hemispheres, compatible with chronic small vessel ischemia. Differential diagnosis does inclu de demyelination. No mass effects are seen.No midline shift. Osseous calvarium is intact. If symptoms persist consider MRI. IMPRESSION: 1. Age related atrophic and chronic small vessel ischemic change without acute intracranial process s een at this time.
[2022-07-22 15:36] LABS: ALT 27 U/L (4-34); AST 29 U/L (14-36); African American GFR (CKD) >90 (>60 ml/min/1.73 sqM); Albumin 4.3 g/dL (3.5-5.0); Alkaline Phosphatase 78 U/L (38-126); Anion Gap 12 mmol/L; Blood Urea Nitrogen 13 mg/dL (7-17); Calcium 9.3 mg/dL (8.4-10.2); Carbon Dioxide 26 mmol/L (22-30); Chloride 103 mmol/L (98-107); Glucose 103 mg/dL (74-99); Non-African American GFR(CKD) >90 (>60 ml/min/1.73 sqM); Potassium 3.8 mmol/L (3.5-5.1); Sodium 141 mmol/L (137-145); Total Bilirubin 0.6 mg/dL (0.2-1.3); Total Protein 7.5 g/dL (6.3-8.2)
[2022-07-22 15:46] LABS: Basophils % (A) 0 %; Eosinophils # (A) 0.1 k/uL (0-0.7); Eosinophils % (A) 3 %; HCT 41.1 % (34.0-46.0); HGB 13.8 gm/dL (11.4-16.0); Lymphocytes # (A) 0.8 k/uL (1.0-4.8); Lymphocytes % (A) 14 %; MCH 29.6 pg (25.0-35.0); MCHC 33.5 g/dL (31.0-37.0); MCV 88.4 fL (80.0-100.0); Mean Platelet Volume 7.8; Monocytes # (A) 0.4 k/uL (0-1.0); Monocytes % (A) 7 %; Neutrophils # (A) 4.2 k/uL (1.3-7.7); Neutrophils % (A) 73 %; Platelet Count 270 k/uL (150-450); RBC 4.64 m/uL (3.80-5.40); RDW 12.6 % (11.5-15.5); WBC 5.7 k/uL (3.8-10.6)
[2022-07-22 16:27] LABS: Appearance,Urine Clear (Clear); Bilirubin,Urine Negative (Negative); Blood,Urine Negative (Negative); Color,Urine Light Yellow; Glucose,Urine (UA) Negative (Negative); Ketones,Urine Negative (Negative); Leukocyte Esterase,Urine Negative (Negative); Nitrite,Urine Negative (Negative); PH, Urine 6.5 (5.0-8.0); Protein,Urine Negative (Negative); Specific Gravity,Urine 1.013 (1.001-1.035); Urobilinogen,Urine <2.0 mg/dL (<2.0)
[2022-07-22] MEDS ORDERED: MECLIZINE 12.5 MG TAB PO STA (16:39)
[2022-07-22] MEDS ORDERED: SODIUM CHLORIDE 0.9% 1,000 ML IV STA (16:39)
[2022-07-22] MEDS ORDERED: MAG HYDROX/AL HYDROX/SIMETH 30 ML, HYOSCYAMINE ELIXIR 10 ML, LIDOCAINE 2% GLYDO JELLY 1... PO STA ×3 (17:05)
[2022-07-22] MEDS ORDERED: PANTOPRAZOLE 40 MG/10 ML VIAL IVP STA (17:05)
[2022-07-22] MEDS ORDERED: ONDANSETRON 4 MG/2 ML VIAL IVP STA (17:05)
--- NOTE | 2022-07-22 17:28 | ED ---
General Adult HPI - General Chief complaint: Dizziness Stated complaint: DIZZINESS Time Seen by Provider: 07/22/22 16:28 Source: patient, RN notes reviewed, old records reviewed Mode of arrival: ambulatory Limitations: no limitations - History of Present Illness Initial comments: Patient is a 52-year-old female who presents emergency Department complaining of dizziness. Has a dizzy spell yesterday that resolved. Describes it as a room spinning sensation and feeling "off". States she had another episode today at approximately 11 AM. Believe she mostly returned to baseline since that time. Denies any other acute complaints at this time. Does have some chronic left upper extremity paresthesias secondary to a left arm surgery surgery that come and go. She denies any obvious chest pain but states she did have some discomfort when she thought of coming to the emergency department which is since resolved. Denies any shortness of breath. Denies any lower extremity weakness or numbness. No recent upper respiratory symptoms. Did spent all day yesterday working around the house per who is at bedside. Does have a history of a intracranial bleed. States the dizziness sometimes gets worse with movements, as well as certain positions such as standing. It seems improved when sitting down. Does have some mild nausea as well. Does have a history of hypothyroidism, as well as diabetes but her sugars been normal. Presents for further evaluation at this time. Is able to ambulate but states she feels unsteady when ambulating.Patient is not on blood thinners. Denies trauma. - Related Data Home Medications Medication Instructions Recorded Confirmed Levothyroxine Sodium [Synthroid] 75 mcg PO DAILY 09/17/13 07/22/22 Citalopram Hydrobromide [CeleXA] 40 mg PO HS 11/05/16 07/22/22 Biotin [Hrbb-Axue-Npxmw] 10,000 mcg PO DAILY 07/22/22 07/22/22 Calcium Carbonate [Calcium] 600 mg PO DAILY 07/22/22 07/22/22 Hydrocodone/Acetaminophen [[place] 1 tab PO BID PRN 07/22/22 07/22/22 7.5-325] Multivitamins, Thera [Multivitamin 1 tab PO DAILY 07/22/22 07/22/22 (formulary)] Omeprazole [PriLOSEC] 20 mg PO DAILY 07/22/22 07/22/22 Tirzepatide [Mounjaro] 5 mg SQ RODRIGES 07/22/22 07/22/22 Allergies Allergy/AdvReac Type Severity Reaction Status Date / Time bee venom protein (honey bee) Allergy Swelling Verified 07/22/22 20:01 prochlorperazine edisylate Allergy Rash/Hives Verified 07/22/22 20:01 [From Compazine] prochlorperazine maleate Allergy Rash/Hives Verified 07/22/22 20:01 [From Compazine] Sulfa (Sulfonamide Allergy Rash/Hives Verified 07/22/22 20:01 Antibiotics) promethazine HCl AdvReac Confusion Verified 07/22/22 20:01 [From Phenergan] cats Allergy Rash/Hives Uncoded 07/24/21 13:28 Review of Systems ROS Statement: Those systems with pertinent positive or pertinent negative responses have been documented in the HPI. Review of Systems: CONST: Denies fever EYES: Denies blurry vision ENT: Denies nasal congestion C/V: Denies Chest pain RESP: Denies shortness of breath GI: Denies abdominal pain : Denies dysuria SKIN: Denies rash. MSK: Denies joint pain. NEURO: Endorses dizziness ROS Other: All systems not noted in ROS Statement are negative. Past Medical History Past Medical History: Diabetes Mellitus, GERD/Reflux, Pneumonia, Sleep Apnea/CPAP/BIPAP, Thyroid Disorder Additional Past Medical History / Comment(s): "small brain bleed" 2008 not sure of cause, apr 2017 had stress echo/stress test pt stated normal, supposed to use CPAP but couldn't afford, chronic low back pain, left arm pain History of Any Multi-Drug Resistant Organisms: None Reported, MRSA Date of last positivie culture/infection: 01/15/20 MDRO Source:: Right Leg Past Surgical History: Bariatric Surgery, Breast Surgery, Cholecystectomy, Hysterectomy, Orthopedic Surgery Additional Past Surgical History / Comment(s): breast reduction, partial hysterectomy-Still has ovaries, 4 right knee surgeries, EGD. 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 HEAD: Normal with no signs of head trauma. EYES: PERRLA, EOMI, conjunctiva normal, no discharge. Pupils are 3 mm and equal bilaterally. ENT: Hearing grossly intact, normal oropharynx. RESPIRATORY: Clear breath sounds bilaterally. No wheezes, rales, or rhonchi. C/V: Regular rate and rhythm. S1 and S2 auscultated, no edema, peripheral pulses 2+ and intact throughout ABD: Abd is soft, nontender, nondistended EXT: Normal range of motion, no obvious deformity SKIN: No rashes or lesions observed on exposed skin. NEURO: Alert and oriented x 4. Cranial nerves II-XII intact. No focal sensory or strength deficits. NIH of 0. GCS of 15. Patient is able to stand and ambulate but does have a mildly ataxic gait. This is not redemonstrated on cerebellar exam with finger to nose testing, [id number] testing. Does have subjective paresthesias located in the left hand and arm, somewhat of chronic. Limitations: no limitations Course Vital Signs 07/22/22 07/22/22 14:48 20:09 Temperature 97.8 F Pulse Rate 72 61 Respiratory 20 14 Rate Blood Pressure 141/89 120/77 O2 Sat by Pulse 96 98 Oximetry Medical Decision Making - Medical Decision Making Was pt. sent in by a medical professional or institution (JAMES Wagner, [employer]VISOR, urgent care, hospital, or assisted...) When possible be specific @ -No Did you speak to anyone other than the patient for history (EMS, parent, family, police, friend...)? What history was obtained from this source @ -No Did you review nursing and triage notes (agree or disagree)? Why? @ -I reviewed and agree with nursing and triage notes Were old charts reviewed (outside hosp., previous admission, EMS record, old EKG, old radiological studies, urgent care reports/EKG's, assisted records)? Report findings @ -No old charts were reviewed Differential Diagnosis (chest pain, altered mental status, abdominal pain women, abdominal pain men, vaginal bleeding, weakness, fever, dyspnea, syncope, headache, dizziness, GI bleed, back pain, seizure, CVA, palpatations, mental health, musculoskeletal)? @ -Differential Dizziness: Benign paroxysmal positional Vertigo, Menieres disease, otitis media, acoustic neuroma, vertebrobasilar insufficiency, cerebellar stroke, encephalitis, hypovolemic, arrhythmia, coronary artery syndrome, anemia, this is not meant to be an all-inclusive list EKG interpreted by me (3pts min.). @ -As above X-rays interpreted by me (1pt min.). @ -Chest x-ray reveals no obvious acute cardio pulmonary process. CT interpreted by me (1pt min.). @ -CT brain as well as CT angiogram revealed no obvious acute intracranial process. U/S interpreted by me (1pt. min.). @ -None done What testing was considered but not performed or refused? (CT, X-rays, U/S, labs)? Why? @ -None What meds were considered but not given or refused? Why? @ -None Did you discuss the management of the patient with other professionals (professionals i.e. , PA, [employer]OR, lab, RT, psych nurse, social service manager, motion picture printer, teacher, supervisory cbp officer, keycase assembler)? Give summary @ -MLP Misener of [facility] who accepted the patient. Was smoking cessation discussed for >3mins.? @ -No Was critical care preformed (if so, how long)? @ -No Were there social determinants of health that impacted care today? How? (Homelessness, low income, unemployed, alcoholism, drug addiction, transportation, low edu. Level, literacy, decrease access to med. care, prison, rehab)? @ -No Was there de-escalation of care discussed even if they declined (Discuss DNR or withdrawal of care, Hospice)? DNR status @ -No What co-morbidities impacted this encounter? (DM, HTN, Smoking, COPD, CAD, Cancer, CVA, ARF, Chemo, Hep., AIDS, mental health diagnosis, sleep apnea, morbid obesity)? @ -None Was patient admitted / discharged? Hospital course, mention meds given and route, prescriptions, significant lab abnormalities, going to OR and other pertinent info. @ -Based on the patient's presentation and physical exam, she appears to be presenting with room spinning dizziness, possible vertigo sensation. Her joint yesterday but seemed to of self resolved and came back today which is why she presents. Workup was started in triage by nursing staff. We will add on a CT angiogram head and neck as well as chest x-ray in addition to a 2nd troponin and a 4plex swab. Patient was in agreement with this plan. She'll be symptomatically treated with meclizine, IV fluids as well as IV Protonix, Zofran and GI cocktail. Patient was in agreement this plan. Vital signs within except for limits. I did discuss with her that her initial laboratory studies are within acceptable limits including an undetectable troponin. Patient already received a CT brain without contrast which was unremarkable. EKG shows no signs of acute ischemia. EKG showed no signs of acute ischemia. As noted above, patient's labs appeared within normal limits. viral swab was negative. Second troponin was undetectable. CT imaging of the brain unremarkable. On reevaluation, patient is still having vertigo particularly when standing. This is affecting her gait. Meclizine appears to have not improved her symptoms much. I did discuss admission versus discharge home and recommended admission with continued symptoms and she was in agreement this plan. Neurology will be consulted. We'll continue to dose meclizine. Patient was in agreement this plan. I spoke with the admitting team, KELLI Bishop of [facility] who accepted the patient. Undiagnosed new problem with uncertain prognosis? @ -No Drug Therapy requiring intensive monitoring for toxicity (Heparin, Nitro, Insulin, Cardizem)? @ -No Were any procedures done? @ -No Diagnosis/symptom? @ -Vertigo Acute, or Chronic, or Acute on Chronic? @ -Acute Uncomplicated (without systemic symptoms) or Complicated (systemic symptoms)? @ -Complicated Side effects of treatment? @ -none Exacerbation, Progression, or Severe Exacerbation] @ -no Poses a threat to life or bodily function? @ -no - Lab Data Result diagrams: 07/22/22 15:00 07/22/22 15:00 Lab Results 07/22/22 07/22/22 07/22/22 Range/Units 15:00 15:00 15:00 WBC 5.7 (3.8-10.6) k/uL RBC 4.64 (3.80-5.40) m/uL Hgb 13.8 (11.4-16.0) gm/dL Hct 41.1 (34.0-46.0) % MCV 88.4 (80.0-100.0) fL MCH 29.6 (25.0-35.0) pg MCHC 33.5 (31.0-37.0) g/dL RDW 12.6 (11.5-15.5) % Plt Count 270 (150-450) k/uL MPV 7.8 Neutrophils % 73 % Lymphocytes % 14 % Monocytes % 7 % Eosinophils % 3 % Basophils % 0 % Neutrophils # 4.2 (1.3-7.7) k/uL Lymphocytes # 0.8 L (1.0-4.8) k/uL Monocytes # 0.4 (0-1.0) k/uL Eosinophils # 0.1 (0-0.7) k/uL Basophils # 0.0 (0-0.2) k/uL PT 9.8 (9.0-12.0) sec INR 0.9 (<1.2) Sodium 141 (137-145) mmol/L Potassium 3.8 (3.5-5.1) mmol/L Chloride 103 (98-107) mmol/L Carbon Dioxide 26 (22-30) mmol/L Anion Gap 12 mmol/L BUN 13 (7-17) mg/dL Creatinine 0.61 (0.52-1.04) mg/dL Est GFR (CKD-EPI)AfAm >90 (>60 ml/min/1.73 sqM) Est GFR (CKD-EPI)NonAf >90 (>60 ml/min/1.73 sqM) Glucose 103 H (74-99) mg/dL Calcium 9.3 (8.4-10.2) mg/dL Total Bilirubin 0.6 (0.2-1.3) mg/dL AST 29 (14-36) U/L ALT 27 (4-34) U/L Alkaline Phosphatase 78 (38-126) U/L Troponin I (0.000-0.034) ng/mL Total Protein 7.5 (6.3-8.2) g/dL Albumin 4.3 (3.5-5.0) g/dL Urine Color Urine Appearance (Clear) Urine pH (5.0-8.0) Ur Specific [place] (1.001-1.035) Urine Protein (Negative) Urine Glucose (UA) (Negative) Urine Ketones (Negative) Urine Blood (Negative) Urine Nitrite (Negative) Urine Bilirubin (Negative) Urine Urobilinogen (<2.0) mg/dL Ur Leukocyte Esterase (Negative) Influenza Type A (PCR) (Not Detectd) Influenza Type B (PCR) (Not Detectd) RSV (PCR) (Not Detectd) SARS-CoV-2 (PCR) (Not Detectd) 07/22/22 07/22/22 07/22/22 Range/Units 15:00 16:13 16:39 WBC (3.8-10.6) k/uL RBC (3.80-5.40) m/uL Hgb (11.4-16.0) gm/dL Hct (34.0-46.0) % MCV (80.0-100.0) fL MCH (25.0-35.0) pg MCHC (31.0-37.0) g/dL RDW (11.5-15.5) % Plt Count (150-450) k/uL MPV Neutrophils % % Lymphocytes % % Monocytes % % Eosinophils % % Basophils % % Neutrophils # (1.3-7.7) k/uL Lymphocytes # (1.0-4.8) k/uL Monocytes # (0-1.0) k/uL Eosinophils # (0-0.7) k/uL Basophils # (0-0.2) k/uL PT (9.0-12.0) sec INR (<1.2) Sodium (137-145) mmol/L Potassium (3.5-5.1) mmol/L Chloride (98-107) mmol/L Carbon Dioxide (22-30) mmol/L Anion Gap mmol/L BUN (7-17) mg/dL Creatinine (0.52-1.04) mg/dL Est GFR (CKD-EPI)AfAm (>60 ml/min/1.73 sqM) Est GFR (CKD-EPI)NonAf (>60 ml/min/1.73 sqM) Glucose (74-99) mg/dL Calcium (8.4-10.2) mg/dL Total Bilirubin (0.2-1.3) mg/dL AST (14-36) U/L ALT (4-34) U/L Alkaline Phosphatase (38-126) U/L Troponin I <0.012 (0.000-0.034) ng/mL Total Protein (6.3-8.2) g/dL Albumin (3.5-5.0) g/dL Urine Color Light Yellow Urine Appearance Clear (Clear) Urine pH 6.5 (5.0-8.0) Ur Specific [place] 1.013 (1.001-1.035) Urine Protein Negative (Negative) Urine Glucose (UA) Negative (Negative) Urine Ketones Negative (Negative) Urine Blood Negative (Negative) Urine Nitrite Negative (Negative) Urine Bilirubin Negative (Negative) Urine Urobilinogen <2.0 (<2.0) mg/dL Ur Leukocyte Esterase Negative (Negative) Influenza Type A (PCR) Not Detected (Not Detectd) Influenza Type B (PCR) Not Detected (Not Detectd) RSV (PCR) Not Detected (Not Detectd) SARS-CoV-2 (PCR) Not Detected (Not Detectd) 07/22/22 Range/Units 17:52 WBC (3.8-10.6) k/uL RBC (3.80-5.40) m/uL Hgb (11.4-16.0) gm/dL Hct (34.0-46.0) % MCV (80.0-100.0) fL MCH (25.0-35.0) pg MCHC (31.0-37.0) g/dL RDW (11.5-15.5) % Plt Count (150-450) k/uL MPV Neutrophils % % Lymphocytes % % Monocytes % % Eosinophils % % Basophils % % Neutrophils # (1.3-7.7) k/uL Lymphocytes # (1.0-4.8) k/uL Monocytes # (0-1.0) k/uL Eosinophils # (0-0.7) k/uL Basophils # (0-0.2) k/uL PT (9.0-12.0) sec INR (<1.2) Sodium (137-145) mmol/L Potassium (3.5-5.1) mmol/L Chloride (98-107) mmol/L Carbon Dioxide (22-30) mmol/L Anion Gap mmol/L BUN (7-17) mg/dL Creatinine (0.52-1.04) mg/dL Est GFR (CKD-EPI)AfAm (>60 ml/min/1.73 sqM) Est GFR (CKD-EPI)NonAf (>60 ml/min/1.73 sqM) Glucose (74-99) mg/dL Calcium (8.4-10.2) mg/dL Total Bilirubin (0.2-1.3) mg/dL AST (14-36) U/L ALT (4-34) U/L Alkaline Phosphatase (38-126) U/L Troponin I <0.012 (0.000-0.034) ng/mL Total Protein (6.3-8.2) g/dL Albumin (3.5-5.0) g/dL Urine Color Urine Appearance (Clear) Urine pH (5.0-8.0) Ur Specific [place] (1.001-1.035) Urine Protein (Negative) Urine Glucose (UA) (Negative) Urine Ketones (Negative) Urine Blood (Negative) Urine Nitrite (Negative) Urine Bilirubin (Negative) Urine Urobilinogen (<2.0) mg/dL Ur Leukocyte Esterase (Negative) Influenza Type A (PCR) (Not Detectd) Influenza Type B (PCR) (Not Detectd) RSV (PCR) (Not Detectd) SARS-CoV-2 (PCR) (Not Detectd) - EKG Data -: EKG Interpreted by Me EKG Comments: 12-lead Electrocardiogram Interpretation Note EKG was reviewed and interpreted by myself. 12-lead ECG performed at 1506 is interpreted by me as revealing normal sinus rhythm at a rate of 64 beats per minute. Left axis deviation. [place] interval is 170 ms, QRS duration is 95 ms, QTc is 376 ms.. Patient does have chronic T wave inversions in lead III seen as far back as EKG from October 2014. There were no acute ST or T wave abnormalities to suggest myocardial ischemia or injury. R wave progression across the precordium was delayed. By my interpretation this EKG is non-diagnostic for acute ischemia. Disposition Clinical Impression: Vertigo Disposition: ADMITTED IP TO THIS HOSP Condition: Stable Time of Disposition: 19:05
--- NOTE | 2022-07-22 17:56 | XR ---
EXAMINATION TYPE: XR chest 1V portable DATE OF EXAM: 07/22/2022 COMPARISON: 05/24/2018 INDICATION: Dizziness TECHNIQUE: Single frontal view of the chest is obtained. FINDINGS: The heart size is normal. The pulmonary vasculature is normal. The lungs are clear. IMPRESSION: 1. No acute pulmonary process.
--- NOTE | 2022-07-22 18:09 | CT ---
EXAMINATION TYPE: CT angio head neck DATE OF EXAM: 07/22/2022 HISTORY: vertigo, hx of brain bleed. brain w/o done earlier today COMPARISON: None CT DLP: 587.5 mGycm. Automated Exposure Control for Dose Reduction was Utilized. TECHNIQUE: CTA scan of the neck is performed with IV Contrast, patient injected with 65 mL of Isovue 370, axial images are obtained, coronal and sagittal reformatted images are reviewed. Three-D recons tructed images are created on an independent workstation and reviewed. Source images are reviewed. FINDINGS: Carotid/Vascular Structures: There is a three-vessel arch. Vertebral arteries are codominant. Common carotid arteries bifurcate normally into internal and external carotid arteries. Internal carotid art eries are patent to the skull base. Cervical of [place]: Vertebral basilar system appears normal. Posterior cerebral vasculature is unrema rkable. Internal carotid arteries bifurcate normally into A1 and M1 segments. A2 segments are normal. The anterior communicating artery is patent. Posterior communicating arteries not identified. Other: Prevertebral space is normal. Vertebral body alignment is normal. Mild diffuse loss of disc he ight is evident. IMPRESSION: 1. No flow-limiting stenosis bilateral carotid bifurcations. 2. Normal pilot point of [place] NASCET criteria was used in interpretation of this exam?
[2022-07-22] MEDS ORDERED: ONDANSETRON 4 MG/2 ML VIAL IVP PRN (19:17)
[2022-07-22] MEDS ORDERED: NALOXONE 0.4 MG/ML 1 ML VIAL IV PRN (19:17)
[2022-07-22] MEDS ORDERED: ASPIRIN 325 MG TAB PO STA (19:36)
[2022-07-22] MEDS ORDERED: ALPRAZolam 0.25 MG TAB PO STA (23:40)
[2022-07-22] MEDS: HEPARIN SODIUM,PORCINE/PF 5,000 UNIT/0.5 ML SYRINGE SQ SCH (23:55)
[2022-07-23 08:48] LABS: Basophils # (A) 0.03 X 10*3/uL (0.00-0.10); Basophils % (A) 0.8 %; Eosinophils # (A) 0.14 X 10*3/uL (0.04-0.35); Eosinophils % (A) 3.6 %; HGB 12.3 g/dL (12.0-15.0); Immature Grans, Automated 0.3 %; Lymphocytes # (A) 0.74 X 10*3/uL (0.90-5.00); Lymphocytes % (A) 18.8 %; MCH 30.2 pg (27.0-32.0); MCHC 33.2 g/dL (32.0-37.0); MCV 90.9 fL (80.0-97.0); Mean Platelet Volume 10.3 fL (9.5-12.2); Monocytes # (A) 0.46 X 10*3/uL (0.20-1.00); Monocytes % (A) 11.7 %; NRBC Per 100 WBC 0 /100 WBCS (0.0-0.0); Neutrophils # (A) 2.55 X 10*3/uL (1.80-7.70); Neutrophils % (A) 64.8 %; Platelet Count 237 X 10*3/uL (140-440); RBC 4.07 X 10*6/uL (4.10-5.20); RDW 12.3 % (11.5-14.5); WBC 3.93 X 10*3/uL (4.50-10.00)
[2022-07-23 08:50] LABS: African American GFR (CKD) 120.6 (60.0-200.0); Anion Gap 6.6 mmol/L (10.00-18.00); BUN/Creat Ratio 16.83 Ratio (12.00-20.00); Blood Urea Nitrogen 10.1 mg/dL (9.0-27.0); Calcium 8.8 mg/dL (8.7-10.3); Carbon Dioxide 27.4 mmol/L (20.0-27.5); Non-African American GFR(CKD) 104.1 (60.0-200.0); Potassium 4.1 mmol/L (3.5-5.5)
[2022-07-23] MEDS: HEPARIN SODIUM,PORCINE/PF 5,000 UNIT/0.5 ML SYRINGE SQ SCH ×2 (10:05→16:41)
[2022-07-23] MEDS: MECLIZINE 25 MG TAB PO PRN ×2 (10:10→16:44)
[2022-07-23] MEDS ORDERED: HYDROcodone/APAP 7.5-325MG 1 EACH TAB PO PRN (10:23)
--- NOTE | 2022-07-23 14:12 | P.CNNES ---
History of Present Illness Consult date: 07/23/22 Requesting physician: Nikhil Sales Reason for Consult: persistent vertigo History of Present Illness: This is a 52-year-old woman with history of small intracranial bleed in 2008 without any intervention, diabetes mellitus was in the emergency department because of dizziness and unsteady gait. Patient stated that yesterday about 10:45 AM she felt like she was dizzy at rest or with position felt her balance is off. She denies any ringing in the ears, hearing loss. Denies any headache, nausea vomiting. Denies any focal weakness appear denies any recent falls. Denies any difficulty getting her words out. She feels currently her dizziness is somewhat better compared to yesterday. Denies any recent fevers or sickness. She does not take any anticoagulation. She sporadically takes aspirin as needed if she has chest pain. Note the patient stated that in 2008 she had a small bleed and she thinks it was over the left parietal that she had to be transferred to [place] but did not require any intervention. They did not know the reason for the bleed. Denies use of anticoagulation or antiplatelet during that time. Some of the workup during his hospital visit consisted of: CBC with differential is unremarkable Chemistry panel is unremarkable CT of the head is reported as age-related atrophy and chronic small vessel ischemic changes without acute intracranial process seen at this time. I reviewed the CT agree with the report. CT angiography of the head and neck was reported as no flow-limiting stenosis bilateral carotid bifurcation. Normal napaimute of [place]. Review of Systems Review of system: The 12 point system was reviewed and apparent positive and negative per HPI. Past Medical History Past Medical History: Diabetes Mellitus, GERD/Reflux, Pneumonia, Sleep Apnea/CPAP/BIPAP, Thyroid Disorder Additional Past Medical History / Comment(s): "small brain bleed" 2008 not sure of cause, apr 2017 had stress echo/stress test pt stated normal, supposed to use CPAP but couldn't afford, chronic low back pain, left arm pain History of Any Multi-Drug Resistant Organisms: MRSA Date of last positivie culture/infection: 01/15/20 MDRO Source:: Pubic area/rt buttcheek Past Surgical History: Bariatric Surgery, Breast Surgery, Cholecystectomy, Hysterectomy, Orthopedic Surgery Additional Past Surgical History / Comment(s): breast reduction, partial hysterectomy-Still has ovaries, 4 right knee surgeries, EGD. sleeve gastrectomy 01-29-21, carpal tunnel release left wrist with bone removal Past Anesthesia/Blood Transfusion Reactions: No Reported Reaction Past Psychological History: Anxiety, Depression Additional Psychological History / Comment(s): Pt lives with significant other, daughter, and dog. Denies feelings of anxiety/depression at this time. Smoking Status: Never smoker Past Alcohol Use History: Rare Past Drug Use History: None Reported - Past Family History Father Family Medical History: Diabetes Mellitus, Myocardial Infarction ([place]) Mother Family Medical History: Cancer, Myocardial Infarction ([place]), Thyroid Disorder Additional Family Medical History / Comment(s): lung CA Medications and Allergies Home Medications Medication Instructions Recorded Confirmed Type Levothyroxine Sodium [Synthroid] 75 mcg PO DAILY 09/17/13 07/22/22 History Citalopram Hydrobromide [CeleXA] 40 mg PO HS 11/05/16 07/22/22 History Biotin [Nfau-Ibry-Jggdj] 10,000 mcg PO DAILY 07/22/22 07/22/22 History Calcium Carbonate [Calcium] 600 mg PO DAILY 07/22/22 07/22/22 History Hydrocodone/Acetaminophen [[place] 1 tab PO BID PRN 07/22/22 07/22/22 History 7.5-325] Multivitamins, Thera [Multivitamin 1 tab PO DAILY 07/22/22 07/22/22 History (formulary)] Omeprazole [PriLOSEC] 20 mg PO DAILY 07/22/22 07/22/22 History Tirzepatide [Mounjaro] 5 mg SQ RODRIGES 07/22/22 07/22/22 History Allergies Allergy/AdvReac Type Severity Reaction Status Date / Time bee venom protein (honey bee) Allergy Swelling Verified 07/22/22 20:01 prochlorperazine edisylate Allergy Rash/Hives Verified 07/22/22 20:01 [From Compazine] prochlorperazine maleate Allergy Rash/Hives Verified 07/22/22 20:01 [From Compazine] Sulfa (Sulfonamide Allergy Rash/Hives Verified 07/22/22 20:01 Antibiotics) promethazine HCl AdvReac Confusion Verified 07/22/22 20:01 [From Phenergan] cats Allergy Rash/Hives Uncoded 07/24/21 13:28 Physical Examination - Vital Signs Vital Signs: Vital Signs Temp Pulse Pulse Resp BP BP Pulse Ox 07/23/22 09:57 14 07/23/22 07:00 98.1 F 58 L 14 96/59 98 07/23/22 05:16 17 07/23/22 05:07 97.9 F 48 L 17 90/53 100 07/23/22 04:34 60 16 101/63 97 07/22/22 20:09 61 14 120/77 98 07/22/22 14:48 97.8 F 72 20 141/89 96 Intake and Output 07/22/22 07/23/22 07/23/22 22:59 06:59 14:59 Other: Voiding Method Toilet Toilet # Voids 1 Weight 85.729 kg GENERAL: The patient is lying in bed and is not in acute distress. CHEST: The heart rate is regular rate rhythm. No murmurs to auscultation. LUNG: Clear to auscultation bilaterally no wheezing noted throughout. Not labored breathing. ABDOMEN/GI: Bowel sounds present in all 4 quadrants. No tenderness to palpation throughout. NEUROLOGICAL: Higher mental function: The patient is awake, alert, oriented to self, place and time. Patient is following commands. No aphasia and no neglect. Cranial nerves: The pupils are round, equal and reactive to light and accommodation. Visual woodson was inconsistent and did multiple times then did it for last time and she was complaining of blurry vision and felt she had ?defect right upper quandrant bilaterally. Extraocular movement is intact no nystagmus is noted. Facial sensation is normal to touch throughout. The facial strength is normal throughout. Hearing is normal bilaterally to hand rub. Tongue is midline and moved [id number] without any difficulty. No dysarthria is noted. Shoulder shrug is normal bilaterally. Motor: Gait is mildly unsteady on initial presentation and was feeling light- headed but not swaying toward one side or other. The strength is 5 over 5 throughout. Normal tone and bulk. Cerebellum: Normal finger to nose bilaterally. Sensation: Sensation is normal to touch throughout. Reflexes (right/left): 1+ in uppers while lowers are 2+. Plantars are downgoing bilaterally. Results - Laboratory Findings CBC and BMP: 07/23/22 06:09 07/23/22 06:09 Abnormal Lab Findings: Abnormal Labs 07/22/22 07/22/22 07/23/22 15:00 15:00 06:09 WBC 3.93 L RBC 4.07 L Hct 37.0 L Lymphocytes # 0.8 L 0.74 L Anion Gap Glucose 103 H 07/23/22 06:09 WBC RBC Hct Lymphocytes # Anion Gap 6.60 L Glucose Assessment and Plan Assessment: Acute vertigo, unsteady gait and on examination had blurry vision and had inconsistent visual woodson: Rule out any central cause such as stroke or mass. History of small brain bleed in 2008 of unknown cause. No intervention required. Diabetes mellitus Plan: I ordered MRI of the brain with and without as well as orthostatic vitals Patient is on meclizine 25 mg 1 tablet 3 times a day when necessary We'll defer the rest of the medical management to primary team Plan discussed with the patient and her was at bedside. Thank you for the consultation Time with Patient: Greater than 30
[2022-07-23 14:18] VITALS: RESP 16
--- NOTE | 2022-07-23 14:21 | P.HPIM ---
History of Present Illness H&P Date: 07/23/22 history of present illness; Patient is an 52-year-old lady with past medical history significant for hypothyroidism, intracranial bleed who presented to the ER because of dizziness. Patient stated the dizziness started yesterday. Patient feels like the whole room is spinning around her, initial episode of dizziness resolved on its own. It was followed by another episode which also resolved. During these episodes patient did not notice any weakness of any extremity. No complaints of facial droop or slurred speech. Patient has chronic left upper extremity numbness secondary to left arm surgery. Patient denies any unsteady gait. Because of this dizziness patient came to the ER Initial workup in the ER showedWBC 5.7, hemoglobin 13.8, platelet count 270, sodium 141, potassium 3.8, BUN 13, creatinine 0.61 CT brain was negative for any acute intracranial process, it showed age-related atrophic and chronic small vessel ischemic change CTA neck was negative for any stenosis bilateral carotid circulation REVIEW OF SYSTEMS: CONSTITUTIONAL: No fever, no malaise, no fatigue. HEENT: No recent visual problems or hearing problems. Denied any sore throat. CARDIOVASCULAR: No chest pain, orthopnea, PND, no palpitations, no syncope. PULMONARY: No shortness of breath, no cough, no hemoptysis. GASTROINTESTINAL: No diarrhea, no nausea, no vomiting, no abdominal pain. NEUROLOGICAL: No headaches, no weakness, no numbness. HEMATOLOGICAL: Denies any bleeding or petechiae. GENITOURINARY: Denies any burning micturition, frequency, or urgency. MUSCULOSKELETAL/RHEUMATOLOGICAL: Denies any joint pain, swelling, or any muscle pain. ENDOCRINE: Denies any polyuria or polydipsia. The rest of the 14-point review of systems is negative. PHYSICAL EXAMINATION: GENERAL: The patient is alert and oriented x3, not in any acute distress. Well developed, well nourished. HEENT: Pupils are round and equally reacting to light. EOMI. No scleral icterus. No conjunctival pallor. Normocephalic, atraumatic. No pharyngeal erythema. No thyromegaly. CARDIOVASCULAR: S1 and S2 present. No murmurs, rubs, or gallops. PULMONARY: Chest is clear to auscultation, no wheezing or crackles. ABDOMEN: Soft, nontender, nondistended, normoactive bowel sounds. No palpable organomegaly. MUSCULOSKELETAL: No joint swelling or deformity. EXTREMITIES: No cyanosis, clubbing, or pedal edema. NEUROLOGICAL: Gross neurological examination did not reveal any focal deficits. SKIN: No rashes. Assessment and plan dizziness; History of hypothyroidism Monitor vital signs Monitor CBC Check orthostatics Continue IV fluids Continue Antivert Ordered MRI brain Consult neurology DVT prophylaxis: Past Medical History Past Medical History: Diabetes Mellitus, GERD/Reflux, Pneumonia, Sleep Apnea/CPAP/BIPAP, Thyroid Disorder Additional Past Medical History / Comment(s): "small brain bleed" 2008 not sure of cause, apr 2017 had stress echo/stress test pt stated normal, supposed to use CPAP but couldn't afford, chronic low back pain, left arm pain History of Any Multi-Drug Resistant Organisms: MRSA Date of last positivie culture/infection: 01/15/20 MDRO Source:: Pubic area/rt buttcheek Past Surgical History: Bariatric Surgery, Breast Surgery, Cholecystectomy, Hysterectomy, Orthopedic Surgery Additional Past Surgical History / Comment(s): breast reduction, partial hysterectomy-Still has ovaries, 4 right knee surgeries, EGD. sleeve gastrectomy 01-29-21, carpal tunnel release left wrist with bone removal Past Anesthesia/Blood Transfusion Reactions: No Reported Reaction Past Psychological History: Anxiety, Depression Additional Psychological History / Comment(s): Pt lives with significant other, daughter, and dog. Denies feelings of anxiety/depression at this time. Smoking Status: Never smoker Past Alcohol Use History: Rare Past Drug Use History: None Reported - Past Family History Father Family Medical History: Diabetes Mellitus, Myocardial Infarction ([place]) Mother Family Medical History: Cancer, Myocardial Infarction ([place]), Thyroid Disorder Additional Family Medical History / Comment(s): lung CA Medications and Allergies Home Medications Medication Instructions Recorded Confirmed Type Levothyroxine Sodium [Synthroid] 75 mcg PO DAILY 09/17/13 07/22/22 History Citalopram Hydrobromide [CeleXA] 40 mg PO HS 11/05/16 07/22/22 History Biotin [Kiyp-Qdvw-Xjqzz] 10,000 mcg PO DAILY 07/22/22 07/22/22 History Calcium Carbonate [Calcium] 600 mg PO DAILY 07/22/22 07/22/22 History Hydrocodone/Acetaminophen [[place] 1 tab PO BID PRN 07/22/22 07/22/22 History 7.5-325] Multivitamins, Thera [Multivitamin 1 tab PO DAILY 07/22/22 07/22/22 History (formulary)] Omeprazole [PriLOSEC] 20 mg PO DAILY 07/22/22 07/22/22 History Tirzepatide [Mounjaro] 5 mg SQ RODRIGES 07/22/22 07/22/22 History Allergies Allergy/AdvReac Type Severity Reaction Status Date / Time bee venom protein (honey bee) Allergy Swelling Verified 07/22/22 20:01 prochlorperazine edisylate Allergy Rash/Hives Verified 07/22/22 20:01 [From Compazine] prochlorperazine maleate Allergy Rash/Hives Verified 07/22/22 20:01 [From Compazine] Sulfa (Sulfonamide Allergy Rash/Hives Verified 07/22/22 20:01 Antibiotics) promethazine HCl AdvReac Confusion Verified 07/22/22 20:01 [From Phenergan] cats Allergy Rash/Hives Uncoded 07/24/21 13:28 Physical Exam Vitals: Vital Signs Temp Pulse Pulse Resp BP BP Pulse Ox 07/23/22 09:57 14 07/23/22 07:00 98.1 F 58 L 14 96/59 98 07/23/22 05:16 17 07/23/22 05:07 97.9 F 48 L 17 90/53 100 07/23/22 04:34 60 16 101/63 97 07/22/22 20:09 61 14 120/77 98 07/22/22 14:48 97.8 F 72 20 141/89 96 Intake and Output 07/22/22 07/23/22 07/23/22 22:59 06:59 14:59 Other: Voiding Method Toilet Toilet # Voids 1 Weight 85.729 kg Results CBC & Chem 7: 07/23/22 06:09 07/23/22 06:09 Labs: Abnormal Lab Results - Last 24 Hours (Table) 07/22/22 07/22/22 07/23/22 Range/Units 15:00 15:00 06:09 WBC 3.93 L (4.50-10.00) X 10*3/uL RBC 4.07 L (4.10-5.20) X 10*6/uL Hct 37.0 L (37.2-46.3) % Lymphocytes # 0.8 L 0.74 L (1.0-4.8) k/uL Anion Gap (10.00-18.00) mmol/L Glucose 103 H (74-99) mg/dL 07/23/22 Range/Units 06:09 WBC (4.50-10.00) X 10*3/uL RBC (4.10-5.20) X 10*6/uL Hct (37.2-46.3) % Lymphocytes # (1.0-4.8) k/uL Anion Gap 6.60 L (10.00-18.00) mmol/L Glucose (74-99) mg/dL Thrombosis Risk Factor Assmnt - Choose All That Apply Each Factor Represents 1 point: Age 41-60 years, Obesity (BMI >25) Thrombosis Risk Factor Assessment Total Risk Factor Score: 2 Thrombosis Risk Factor Assessment Level: Low Risk
--- NOTE | 2022-07-23 16:39 | MR ---
EXAMINATION TYPE: MR brain wo/w con DATE OF EXAM: 07/23/2022 4:29 PM CLINICAL INDICATION:Female, 52 years old with history of dizziness, unsteady gait and visual disturba nce; Dizziness, unsteady gait and visual disturbance. COMPARISON: 12/14/2014 CT brain 07/22/2022. TECHNIQUE: Multi planar, multi sequence imaging was performed through the brain including: T1, T2, In version recovery, susceptibility weighted imaging and gradient echo imaging and Diffusion weighted im aging. The patient was then given intravenous contrast and multi planar, T1 fat-saturation images wer e obtained. IV Contrast: 8.5 cc Gadavist FINDINGS: Remote left frontal lobe lesion lesion measuring 5 mm on prior in 2014 is unchanged with susceptibili ty weighted blooming artifact present. The ramos-white junctions, ventricular system, basal cisterns a ppear unremarkable. Diffusion-weighted imaging shows no evidence of restricted diffusion to suggest a cute/subacute infarct. Intracranial arterial flow voids are maintained. Midline structures show no ab normality. . After administration of gadolinium, no abnormal enhancement is seen. The bone marrow signal is within normal limits. Paranasal sinuses and mastoid air cells: No significant paranasal sinus disease. Visualized orbits: Orbital contents are intact. The optic nerves appear symmetrical. No abnormal post contrast enhancement. IMPRESSION: 1. No evidence of intracranial mass, acute/subacute infarct, or abnormal enhancement. 2. Unchanged left frontal lobe 5 mm lesion which is low FLAIR/low T2 signal with blooming artifact pinedo ggestive of cavernous hemangioma.
[2022-07-23 19:13] VITALS: BP 137/77; PULSE 70; TEMP 98.1
[2022-07-23] MEDS ORDERED: CITALOPRAM HYDROBROMIDE 20 MG TAB PO SCH (21:00)
[2022-07-24] MEDS ORDERED: LEVOTHYROXINE 75 MCG TAB PO SCH (06:30)
[2022-07-24] MEDS ORDERED: PANTOPRAZOLE 40 MG TABLET PO SCH (07:30)
[2022-07-24] MEDS ORDERED: MULTIVITAMINS, THERA 1 EACH TAB PO SCH (09:00)
== END 2022-07-23 21:20 | disposition home or self-care (01) ==
LOC: EC 14:40 → 6NMEDSUR 19:36
PROVIDERS: ADMIT Hospitalist; ATTEND Hospitalist
DX: R42 Dizziness and giddiness (principal); E11.9 Type 2 diabetes mellitus without complications; E03.9 Hypothyroidism, unspecified; F41.9 Anxiety disorder, unspecified; F32.A Depression, unspecified; K21.9 Gastro-esophageal reflux disease without esophagitis; G47.30 Sleep apnea, unspecified; M54.50 Low back pain, unspecified; G89.29 Other chronic pain; Z79.890 Hormone replacement therapy; Z83.3 Family history of diabetes mellitus; Z79.899 Other long term (current) drug therapy; Z88.2 Allergy status to sulfonamides; Z88.8 Allergy status to other drugs, medicaments and biological substances; Z98.84 Bariatric surgery status; Z90.49 Acquired absence of other specified parts of digestive tract; Z90.710 Acquired absence of both cervix and uterus; Z82.49 Family history of ischemic heart disease and other diseases of the circulatory system; Z80.1 Family history of malignant neoplasm of trachea, bronchus and lung; Z20.822 Contact with and (suspected) exposure to COVID-19; Z83.49 Family history of other endocrine, nutritional and metabolic diseases
CPT/HCPCS: 96372; 96374; 96375; 99285; 36415; 93005; 80053; 80048; 84484; 85025 ×2; 85610; 81003; 87636; 71045; 70496; 70450; 70498; 70553; G0378 ×2; J2405; C9113; Q9967; J1644; A9585

== ENCOUNTER → 2023-03-21 | Outpatient (CLI) | payer BC ==
--- NOTE | 2023-03-25 08:40 | MM ---
Reason for Exam: Screening (asymptomatic). Last mammogram was performed 1 year(s) and 11 month(s) ago. Patient History: Menarche at age 10. First Full-Term at age 24. Hysterectomy at age 33. 2006, Bilateral Reduction. Maternal grandmother had breast cancer. Risk Values: Dejah 5 year model risk: 1.4%. NCI Lifetime model risk: 10.1%. Prior Study Comparison: 03/15/2010 Bilateral Diagnostic Mammogram, [facility]. 11/29/2016 Bilateral Screening Mammogram, [facility]. 04/26/2021 Bilateral Screening Mammogram, [facility]. Tissue Density: There are scattered fibroglandular densities. Findings: Analyzed By CAD. Post reduction mammoplasty changes on both sides. There is no suspicious group of microcalcifications or new suspicious mass in either breast. Overall Assessment: Benign, BI-RAD 2 Management: Screening Mammogram of both breasts in 1 year. . Patient should continue monthly self-breast exams. A clinical breast exam by your physician is recommended on an annual basis. This exam should not preclude additional follow-up of suspicious palpable abnormalities. Note on Dejah scores and lifetime risk: 1. A Dejah score greater than 3% is considered moderate risk. If this is the case, consider specialist referral to assess eligibility for a risk reducing agent. 2. If overall lifetime risk for the development of breast cancer is 20% or higher, the patient may qualify for future screening with alternating mammogram and breast MRI. Electronically signed and approved by: Lucie Horn M.D. Radiologist
== END | disposition home or self-care (01) ==
LOC: RADMAMWWP 14:12
PROVIDERS: ATTEND Family Medicine
DX: Z12.31 Encounter for screening mammogram for malignant neoplasm of breast (principal); Z80.3 Family history of malignant neoplasm of breast
CPT/HCPCS: 77063; 77067

== ENCOUNTER → 2024-06-17 | Outpatient (CLI) | payer BC ==
[2024-06-17 15:50] LABS: % Iron Saturation 32.69 (12.00-45.00); Iron 118 UG/DL (50-170); Total Iron Binding Capacity 361 UG/DL (228-460)
[2024-06-17 15:51] LABS: ALT 27 U/L (8-44); AST 31 U/L (13-35); Albumin 4.5 g/dL (3.8-4.9); Albumin/Globulin Ratio 1.45 Ratio (1.60-3.17); Alkaline Phosphatase 87 U/L (41-126); BUN/Creat Ratio 24.33 Ratio (12.00-20.00); Blood Urea Nitrogen 14.6 mg/dL (9.0-27.0); Calcium 9.7 mg/dL (8.7-10.3); Carbon Dioxide 26.6 mmol/L (21.6-31.8); Chloride 100 mmol/L (96-109); Globulin 3.1 g/dL (1.6-3.3); Glucose 79 mg/dL (70-110); Potassium 4.1 mmol/L (3.5-5.5); Sodium 140 mmol/L (135-145); Total Bilirubin 0.5 mg/dL (0.3-1.2); Total Protein 7.6 g/dL (6.2-8.2)
[2024-06-17 16:26] LABS: HCT 44.6 % (37.2-46.3); HGB 14.5 g/dL (12.0-15.0); MCH 29.1 pg (27.0-32.0); MCHC 32.5 g/dL (32.0-37.0); MCV 89.6 FL (80.0-97.0); Mean Platelet Volume 10.3 FL (9.5-12.2); NRBC Per 100 WBC 0 X 10*3/uL (0.00-0.01); Platelet Count 298 X 10*3/uL (140-440); RBC 4.98 X 10*6/uL (4.10-5.20); RDW 11.9 % (11.5-14.5)
== END | disposition home or self-care (01) ==
LOC: LABWHC1 10:47
PROVIDERS: ATTEND Surgery
DX: E66.01 Morbid (severe) obesity due to excess calories (principal); E55.9 Vitamin D deficiency, unspecified; D50.8 Other iron deficiency anemias; K90.9 Intestinal malabsorption, unspecified
CPT/HCPCS: 36415; 80053; 82306; 82607; 82746; 83540; 83550; 84425; 85027

== ENCOUNTER → 2024-06-22 | Outpatient (CLI) | payer BC ==
[2024-06-22 14:30] VITALS: BP 127/80; PULSE 55; RESP 16; TEMP 98.2; BMI 33.5
--- NOTE | 2024-06-22 16:22 | P.BASOAP ---
Subjective Progress Note Date: 06/22/24 Principal diagnosis: Morbid obesity Patient returns for recheck. Last seen 2 years ago. Since that time the patient was started on GLP-1 agonist in the form of Mounjaro. She also took Wegovy for 1 month. Hemoglobin A 1C is back to normal. Some increased GERD symptoms. Started taking omeprazole twice daily. Says she has chronic nausea over the last year or so. Patient says she stopped taking her vitamins. Weight is down from when we saw her last time. Current weight 184. She says she was as low as 172 at 1 point. Objective - Vital Signs Vital signs: Vital Signs Temp 98.2 F 06/22/24 14:27 Pulse 55 L 06/22/24 14:27 Resp 16 06/22/24 14:27 BP 127/80 06/22/24 14:27 Pulse Ox FiO2 Intake & Output 06/21/24 06/22/24 06/22/24 18:59 06:59 18:59 Weight 85.729 kg - Exam Abdomen: Soft, nontender, nondistended Assessment/Plan (1) Morbid obesity Narrative/Plan: 54-year-old female with morbid obesity. Patient with chronic nausea now. I do believe some of the symptoms are likely related to her GLP-1 agonist. Discussed trial of stopping it to see if that would help her nausea. Patient states she would rather live with the nausea then have her weight come back. Continue PPI 1-2 times daily. Discussed options of upper endoscopy. Patient will consider and let me know if she would like to proceed with that. Otherwise check annual labs at this time. Follow-up 1 year. Plan: Date: 06/22/24 Initial Weight: 105.233 kg Initial BMI: 41.1 Current Weight: 85.729 kg Current BMI: 33.5 Type of Surgery: Vertical Sleeve Gastrectomy Total Volume in Band: Previous Volume: Volume Removed: Volume Added: Band Size:
== END ==
LOC: BARWHC3 13:58
PROVIDERS: ATTEND Surgery
DX: E66.01 Morbid (severe) obesity due to excess calories (principal); R11.2 Nausea with vomiting, unspecified; Z91.030 Bee allergy status; Z88.2 Allergy status to sulfonamides; Z88.8 Allergy status to other drugs, medicaments and biological substances; Z68.33 Body mass index [BMI] 33.0-33.9, adult; Z91.048 Other nonmedicinal substance allergy status
CPT/HCPCS: 99211